=== PATIENT | male | born 1950 | race Caucasian/White ===

== ENCOUNTER → 2023-04-24 | Outpatient (CLI) | payer MEDICARE, SELFPAY ==
[2023-04-24 09:35] LABS: ALB/GLOB Ratio 0.9 RATIO (0.9-2.4); AST(SGOT) 16 U/L (15-37); Alanine Aminotransfer ALT/SGPT 22 U/L (16-61); Albumin, Serum 3.4 g/dL (3.2-5.0); Alkaline Phosphatase 69 U/L (45-117); Anion Gap 5 (5-15); BUN 22 mg/dL (7-18); BUN/Creat Ratio 28.8 RATIO (10-20); Calcium,Total 8.9 mg/dL (8.5-10.1); Chloride 108 mmol/L (98-107); Cholesterol 169 mg/dL (200); Creatinine, Serum 0.76 mg/dL (0.70-1.30); EST Glomerular Filtration Rate 106 mL/min (>60); Est Glom Filt Rate - Afr Amer 128 mL/min (>60); Globulin 3.8 g/dL (2.2-4.2); Glucose 119 mg/dL (74-106); High Density Lipoprotein 59 mg/dL; PSA,Total - Annual Screen 1.64 ng/mL (0.00-4.00); Potassium 4.5 mmol/L (3.5-5.1); Protein, Total 7.2 g/dL (6.4-8.2); Sodium Level 139 mmol/L (136-145); Triglycerides 60 mg/dL; Very Low Density Lipoprotein 12 mg/dL (5-40)
== END | disposition home or self-care (01) ==
LOC: LAB 07:54
PROVIDERS: PCP Family Medicine; Visit Provider Family Medicine
DX: I10 Essential (primary) hypertension (principal); Z12.5 Encounter for screening for malignant neoplasm of prostate
CPT/HCPCS: 36415; 80053; 80061; 84153; G0103

== ENCOUNTER → 2023-09-23 | Outpatient (CLI) | payer MEDICARE, SELFPAY ==
--- NOTE | 2023-09-23 12:27 | CT_ITS ---
CT RIGHT LOWER EXTREMITY WITH 3-D IMAGING CLINICAL INDICATION: PRE OP WAS. MICHELLE protocol. TECHNIQUE: Axial CT images of the RIGHT lower extremity was performed without IV contrast material. Coronal and sagittal reformats were provided. RADIATION DOSAGE (If Supplied By Facility): CTDIvol = ( 18.76 ) mGy, DLP = ( 1474.05 ) mGycm COMPARISON: No relevant prior comparison study available FINDINGS: Bones: Imaging of the right hip joint was obtained. Mild degree of joint space narrowing and small acetabular spur. There is evidence of a ossific bursitis overlying the greater trochanter. Imaging of the right knee joint was obtained. There is a moderate degree of joint space narrowing involving the medial compartment of the knee joint. Mild degree of joint space narrowing involving the femoral patellar joint. Small joint effusion. Imaging of the ankle joint was obtained. No significant abnormality is seen. Soft Tissues: The deep soft tissue structures are unremarkable. The superficial soft tissues are unremarkable without evidence of edema, hematoma, or foreign body. CT/Extremity Lower without Contra IMPRESSION: Osteoarthritis and joint space narrowing involving the medial compartment of the knee joint with a small joint effusion. Electronically Signed: Catracho Mishra MD at 13:22 EDT ,
--- NOTE | 2023-09-23 12:28 | EKG12_ITS ---
Test Reason : PRE-OP Blood Pressure : / mmHG Vent. Rate : 050 BPM Atrial Rate : 050 BPM P-R Int : 138 ms QRS Dur : 090 ms QT Int : 426 ms P-R-T Axes : 003 009 030 degrees QTc Int : 388 ms Sinus bradycardia Otherwise normal ECG Confirmed by KEITH RAMIREZ, LAILA ([id number]), food expeditor MICHAEL SIMMONS ([id number]) on 09/24/2023 10:40:19 AM Referred By: Mac Madrigal Confirmed By:LAILA PARKER MD
[2023-09-23 13:32] LABS: Absolute Neutrophil Count 4.5 X10^3/uL (2.0-7.7); Basophil# 0.05 X10^3/uL; Basophil% 0.8 % (0-1); Eosinophil# 0.21 X10^3/uL; Eosinophils% 3.5 % (0-5); Hematocrit 38.5 % (40-54); Hemoglobin 12.7 g/dL (13.0-16.5); Lymphocyte % 13.4 % (19-41); Mean Corpuscular Hgb 29.5 pg (27.0-32.0); Mean Corpuscular Volume 89.5 fL (80-94); Mean Platelet Vol. 9.1 fl (6.2-12.0); Monocyte% 6.7 % (0-10); NRBC Flagged by Analyzer 0 % (0-5); Neutrophil # 4.48 X10^3/uL (2.7-7.7); Neutrophil % 75.3 % (47-70); Platelet Count 266 K/mm3 (150-450); RBC Distribution Width CV 13.9 % (11.6-14.6); RBC Distribution Width SD 45.1 fl (35.1-43.9)
[2023-09-23 14:01] LABS: Albumin, Serum 3.7 g/dL (3.2-5.0); Anion Gap 4 (5-15); BUN 21 mg/dL (7-18); BUN/Creat Ratio 27.7 RATIO (10-20); Calcium,Total 9.2 mg/dL (8.5-10.1); Chloride 105 mmol/L (98-107); Creatinine, Serum 0.76 mg/dL (0.70-1.30); EST Glomerular Filtration Rate 107 mL/min (>60); Est Glom Filt Rate - Afr Amer 129 mL/min (>60); Glucose 111 mg/dL (74-106); Potassium 4.1 mmol/L (3.5-5.1); Sodium Level 137 mmol/L (136-145)
== END | disposition home or self-care (01) ==
LOC: CT 12:25
PROVIDERS: PCP Family Medicine; Referring Provider Specialist; Visit Provider Specialist
DX: Z01.818 Encounter for other preprocedural examination (principal); M17.11 Unilateral primary osteoarthritis, right knee; M21.161 Varus deformity, not elsewhere classified, right knee; M25.561 Pain in right knee
CPT/HCPCS: 36415; 73700; 80048; 82040; 85025; 93005

== ENCOUNTER → 2023-12-27 | Outpatient (CLI) | payer MEDICARE, SELFPAY ==
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
== END | disposition home or self-care (01) ==
LOC: CT 08:14
PROVIDERS: PCP Family Medicine; Visit Provider Specialist
DX: M17.12 Unilateral primary osteoarthritis, left knee (principal); M25.561 Pain in right knee
CPT/HCPCS: 73700

== ENCOUNTER → 2024-01-10 | Outpatient (CLI) | payer MEDICARE, SELFPAY ==
[2024-01-10 10:05] LABS: Absolute Lymphocyte Count 0.87 X10^3/uL (0.83-4.51); Absolute Neutrophil Count 4.4 X10^3/uL (2.0-7.7); Basophil# 0.08 X10^3/uL; Basophil% 1.3 % (0-1); Eosinophil# 0.29 X10^3/uL; Eosinophils% 4.7 % (0-5); Hematocrit 40.4 % (40-54); Hemoglobin 12.9 g/dL (13.0-16.5); Lymphocyte # 0.87 X10^3/ul (0.83-4.51); Mean Corp Hgb Conc 31.9 g/dL (32-36); Mean Corpuscular Volume 90.8 fL (80-94); Mean Platelet Vol. 9.5 fl (6.2-12.0); Monocyte% 8.1 % (0-10); NRBC Flagged by Analyzer 0 % (0-5); Neutrophil # 4.44 X10^3/uL (2.7-7.7); Neutrophil % 71.6 % (47-70); Platelet Count 282 K/mm3 (150-450); RBC Distribution Width CV 12.9 % (11.6-14.6); Red Blood Count 4.45 M/mm3 (4.6-6.2); White Blood Count 6.2 K/mm3 (4.4-11.0)
[2024-01-10 10:32] LABS: Albumin, Serum 3.7 g/dL (3.2-5.0); Anion Gap 8 (5-15); BUN 28 mg/dL (7-18); BUN/Creat Ratio 31.9 RATIO (10-20); Calcium,Total 9.4 mg/dL (8.5-10.1); Chloride 105 mmol/L (98-107); Creatinine, Serum 0.88 mg/dL (0.70-1.30); EST Glomerular Filtration Rate 90 mL/min (>60); Est Glom Filt Rate - Afr Amer 109 mL/min (>60); Glucose 118 mg/dL (74-106); Potassium 4.1 mmol/L (3.5-5.1); Sodium Level 139 mmol/L (136-145)
== END | disposition home or self-care (01) ==
LOC: LAB 09:15
PROVIDERS: PCP Family Medicine; Referring Provider Physician Assistant Surgical; Visit Provider Physician Assistant Surgical
DX: Z01.818 Encounter for other preprocedural examination (principal)
CPT/HCPCS: 36415; 80048; 82040; 85025

== ENCOUNTER → 2024-01-25 | Outpatient (CLI) | payer MEDICARE, SELFPAY ==
[2024-01-25 10:30] LABS: Hematocrit 31.6 % (40-54); Mean Corp Hgb Conc 31.6 g/dL (32-36); Mean Corpuscular Hgb 28.6 pg (27.0-32.0); Mean Corpuscular Volume 90.3 fL (80-94); Mean Platelet Vol. 9.4 fl (6.2-12.0); Platelet Count 290 K/mm3 (150-450); RBC Distribution Width CV 12.9 % (11.6-14.6); RBC Distribution Width SD 42.3 fl (35.1-43.9); White Blood Count 4.8 K/mm3 (4.4-11.0)
[2024-01-25 12:48] LABS: ALB/GLOB Ratio 0.7 RATIO (0.9-2.4); AST(SGOT) 31 U/L (15-37); Alanine Aminotransfer ALT/SGPT 44 U/L (16-61); Albumin, Serum 2.9 g/dL (3.2-5.0); Alkaline Phosphatase 75 U/L (45-117); Anion Gap 6 (5-15); BUN 19 mg/dL (7-18); BUN/Creat Ratio 22.4 RATIO (10-20); Calcium,Total 9.2 mg/dL (8.5-10.1); Chloride 104 mmol/L (98-107); Cholesterol 150 mg/dL (200); Creatinine, Serum 0.85 mg/dL (0.70-1.30); EST Glomerular Filtration Rate 93 mL/min (>60); Est Glom Filt Rate - Afr Amer 113 mL/min (>60); Globulin 3.9 g/dL (2.2-4.2); Glucose 112 mg/dL (74-106); High Density Lipoprotein 53 mg/dL; PSA,Total - Annual Screen 1.06 ng/mL (0.00-4.00); Potassium 4.5 mmol/L (3.5-5.1); Protein, Total 6.8 g/dL (6.4-8.2); Sodium Level 136 mmol/L (136-145); Triglycerides 85 mg/dL; Very Low Density Lipoprotein 17 mg/dL (5-40)
== END | disposition home or self-care (01) ==
LOC: MFPLAB 09:24
PROVIDERS: PCP Family Medicine; Visit Provider Family Medicine
DX: Z01.818 Encounter for other preprocedural examination (principal); Z12.5 Encounter for screening for malignant neoplasm of prostate; I10 Essential (primary) hypertension; K21.9 Gastro-esophageal reflux disease without esophagitis
CPT/HCPCS: 36415; 80053; 80061; 84153; 85027; G0103

== ENCOUNTER → 2024-11-29 | Outpatient (CLI) | payer MEDICARE, SELFPAY ==
--- NOTE | 2024-11-29 07:20 | US_ITS ---
PROCEDURE: TESTICULAR WITH ARTERIAL FLOW 11/29/2024 REASON FOR EXAM: R TESTICULAR SWELLING FOR 6 MONTHS. SWELLING V HERNIA. TECHNIQUE: TESTICULAR WITH ARTERIAL FLOW COMPARISON: None FINDINGS: RIGHT testicle: 4.3 cm x 3.3 cm x 2.1 cm Right epididymis: 0.9 cm x 1.3 cm x 0.5 cm LEFT testicle: 4.3 cm x 3.3 cm x 2.5 cm Left epididymis: 1 cm x 1.1 cm x 0.9 cm Other findings: Moderate bilateral hydroceles. Incidental finding is made of right inguinal hernia extending to the right scrotum. US/Testicular with Arterial Flow IMPRESSION: Moderate bilateral hydroceles. Right scrotal hernia. Reading Location: [id number]
--- OUTSIDE RECORDS SUMMARY | 2024-11-29 07:24 | XMS RPT_ITS | CCD ---
Author Organization [facility] Care Team Providers Care Schedule Supervisor Name Role Phone MANJINDER SPEAR Attending Unavailable MANJINDER SPEAR Primary Care Unavailable MANJINDER SPEAR Admitting Unavailable Williams RAMIREZ, Trent Nelson Primary Care Provider [phone] Unavailable Primary Care Provider Unavailemile Kramer MD, Trent Nelson Primary Care Provider [phone] Trent Kramer MD Primary Care Provider [phone] Williams RAMIREZ, rTent Nelson Primary Care Provider [phone] OLDER, MIRYAM Referring Unavailable TRENT KRAMER Primary Care Unavailable Trent Kramer MD Primary Care Provider [phone] LEE MORAN Attending Unavailable TRENT KRAMER Referring Unavailable TRENT KRAMER Primary Care Unavailable TRENT KRAMER Primary Care Unavailable SELF, SELF Referring Unavailable GERA YOUNGBLOOD Attending Unavailable TRENT KRAMER Primary Care Unavailable SELF, SELF Referring Unavailable ELIZABETH AVENDANO Attending Unavailable TRENT KRAMER Primary Care Unavailable TRENT KRAMER Referring Unavailable TRENT KRAMER Primary Care Unavailable GERA YOUNGBLOOD Attending Unavailable Dr. Beny Franco Primary Care Provider Dr. Ashish Lynch Attending Provider [phone] Mac Madrigal Referring Provider Beny Franco Primary Care Unavailable Ashish Lynch Attending Unavailable Mac Madrigal Referring Unavailable Beny Franco Primary Care Unavailable Beny Franco Attending Unavailable Alma Delia Barbosa Referring Unavailable Alma Delia Barbosa Attending Unavailable Beny Franco Primary Care Unavailable Beny Franco Primary Care Unavailable Mac Madrigal Attending Unavailable Justin Martinez Unavailable Beny Franco Primary Care Unavailable Mac Madrigal Referring Unavailable Mac Madrigal Attending Unavailable Beny Franco Attending Unavailable Beny Franco Primary Care Unavailable Medications Current Medications Medication Drug Class(es) Dates Sig (Normalized) Sig (Original) cephalexin 500 mg oral capsule (1 source) Cephalosporin Antibacterial Start: 09-18-2021 End: 09-25-2021 take 2 capsules by mouth every twelve hours cephALEXin (Keflex) 500 MG capsule Take 2 capsules by mouth every 12 hours for 7 days. 28 capsule 0 09/18/2021 09/25/2021 Active hydroCHLOROthiazide 12.5 mg / lisinopril 20 mg oral tablet (20 sources) Thiazide Diuretic, Angiotensin Converting Enzyme Inhibitor Start: 08-21-2020 End: 09-02-2022 take 1 tablet by mouth once daily in the morning lisinopril-hydr ochlorothiazide 20-12.5 MG per tablet Take 1 tablet by mouth daily every morning. 0 09/02/2021 Active Comment on above: Take 1 tablet by bertin th every morning. Multiple Vitamin (MULTIVITAMINS PO) (5 sources) Multiple Vitamin (MULTIVITAMINS PO) Take by mouth. 0 Active ofloxacin 3 mg/ml otic solution (2 sources) Quinolone Antimicrobial Start: 09-16-2021 End: 09-23-2021 ofloxacin (Floxin Otic) 0.3 % solution 5 drops by Otic route 2 times daily for 7 days. 5 mL 0 09/16/2021 09/23/2021 Active omeprazole 20 mg oral tablet (17 sources) Proton Pump Inhibitor Omeprazole Magnesium (PRILOSEC OTC PO) Take 20 mg by mouth. 0 Active take 1 capsule by mouth once eren ly omeprazole (PRILOSEC) 20 mg capsule Indications: Gastroesophageal reflux disease, esophagitis presence not specified Take 20 mg by mouth once daily. 0 Active Comment on above: Take 20 mg by mouth once daily. ondansetron 4 mg oral tablet (8 sources) Serotonin-3 Receptor Antagonist Start: take 1 tablet by mouth every eight hours as needed ondansetron 4 MG tablet Take 1 tablet by mouth every 8 hours as needed for Nausea. 30 tablet 0 03/05/2022 Active Start: 03-05-2022 End: 03-05-2022 ondansetron 4mg/2ml (ZOFRAN) injection 4 mg Start: 09-18-2021 End: 09-18-2021 take 4 mg intravenously every four hours as needed ondansetron 4mg/2ml (ZOFRAN) injection 4 mg oxyCODONE hydrochloride 5 mg oral tablet (11 sources) Opioid Agonist Start: 03-05-2022 End: 03-12-2022 take 1 tablet by mouth every four hours as needed oxyCODONE 5 MG tablet Indications: Mixed conductive and sensorineural hearing loss of left ear with restricted hearing of right ear Take 1 tablet by mouth every 4 hours as needed for up to 7 days. 8 tablet 0 03/05/2022 Active Start: 09-18-2021 End: 09-25-2021 take 1 tablet by mouth every six hours as needed for pain oxyCODONE 5 MG tablet Indications: Cholesteatoma, left Take 1 tablet by mouth every 6 hours as needed for Severe Pain for up to 7 days. 12 tablet 0 09/18/2021 Active Start: 09-18-2021 End: 09-18-2021 take 1 tablet by mouth every four hours as needed oxyCODONE (ROXICODONE) tablet 5 mg promethazine hydrochloride 12.5 mg oral tablet (11 sources) Phenothiazine Start: 09-18-2021 take 1 tablet by mouth every four hours as needed Promethazine HCl 12.5 MG tablet Take 1 tablet by mouth every 4 hours as needed for Nausea / Vomiting. 18 tablet 0 09/18/2021 Active Start: 09-18-2021 End: 09-18-2021 take 6.25 mg intravenously every hour as needed promethazine (PHENERGAN) injection 6.25 mg Completed/Discontinued Medications Medication Drug Class(es) Dates Sig (Normalized) Sig (Original) acetaminophen 325 mg oral tablet (3 sources) Start: 03-05-2022 End: 03-05-2022 take 1 tablet by mouth every four hours as needed acetaminophen (TYLENOL) tablet 650 mg Start: 03-05-2022 End: 03-05-2022 acetaminophen (TYLENOL) tabl et 975 mg Start: 09-18-2021 End: 09-18-2021 take 1 tablet by mouth every four hours as needed acetaminophen (TYLENOL) tablet 650 mg aspirin 81 mg delayed release oral tablet (18 sources) Platelet Aggregation Inhibitor, Nonsteroidal Anti-inflammatory Drug Start: 12-31-2009 aspirin(ECOTRIN L OW STRENGTH 81 MG TAB) Take one(1) tablet daily. 0 12/31/2009 Active aspirin 81 MG Ch ew Tab chewable tablet Chew 1 tablet daily. 0 Active Comment on above: Take one(1) tablet d aily. calcium chloride 0.0014 meq/ml / potassium chloride 0.004 meq/ml / sodium chloride 0.103 meq/ml / sodium lactate 0.028 meq/ml injectable solution (3 sources) Start: 03-05-2022 End: 03-05-2022 lactated ringers IV solution Start: 09-18-2021 End: 09-18-2021 lactated ringers IV solution ciprofloxacin 3 mg/ml / dexamethasone 1 mg/ml otic suspension (1 source) Corticosteroid, Quinolone Antimicrobial Start: 09-18-2021 End: 09-18-2021 ciprofloxacin-dexamethasone (CIPRODEX) otic suspension 4 drop CPAP (12 sources) Start: 05-12-2021 CPAP Indications: CAPO (obstructive sleep apnea) Change Auto PAP setting to 5-12 cmH2O. Needs supplies (masks, tubing, filters). Lifetime supplies. LINCARE 1 Each 05/12/2021 Active Start: 05-09-2020 CPAP Indicatio ns: CAPO (obstructive sleep apnea) Initiate Auto PAP @ 5-20 cm of water with humidification. Mask (per patient preference) optional chin strap (if indicated) , filters, tubing, humidifier and lifetime supplies. 1 Device 0 05/09/2020 Active Comment on above: Initiate Auto PAP @ 5-20 cm of water with humidification. Mask (per patient preference) optional chin strap (if indicated) , filters, tubing, humidifier and lifetime supplies. Change Auto PAP sett ing to 5-12 cmH2O. Needs supplies (masks, tubing, filters). Lifetime supplies. LINCARE 2 ml fentaNYL 0.05 mg/ml injection (1 source) Opioid Agonist Start: 03-05-20 End: 03-05-20 fentaNYL (SUBLIMAZE) injection 25 mcg HYDROmorphone (DILAUDID) injection 0.2 mg (1 source) Start: 09-19-19 End: 09-19-19 HYDROmorphone (DILAUDID) injection 0.2 mg ibuprofen 200 mg oral tablet (1 source) Nonsteroidal Anti-inflammatory Drug Start: 09-19-19 End: 09-19-19 take 1 tablet by mouth every six hours as needed ibuprofen (MOTRIN) tablet 400 mg lidocaine 1% buffered in sodium bicarbonate 1-8.4 % injection SOSY 1 mL (1 source) Start: 03-05-20 End: 03-05-20 lidocaine 1% buffered in sodium bicarbonate 1-8.4 % injection SOSY 1 mL MULTI-VITAMIN ORAL (6 sources) MULTI-VITAMIN OR AL Take by mouth once daily. 0 Active Comment on above: Take by mouth once d aily. remifentanil (ULTIVA) 1 mg in 0.9% sodium chloride 25 mL premade syringe (1 source) Start: 09-19-19 End: 09-19-19 remifentanil (ULTIVA) 1 mg in 0.9% sodium chloride 25 mL premade syringe 1000 ml sodium chloride 9 mg/ml injection (1 source) Start: 03-05-20 End: 03-05-20 sodium chloride 0.9% IV solution Problems Active Problems Problem Classification Problem Date Documented Date Episodic/Chronic Esophageal disorders (6 sources) Gastroesophageal reflux disease; Translations: [Gastro-esophageal reflux disease without esophagitis] Onset: 04-07-2005 04-07-2005 Chronic Essential hypertension (9 sources) Hypertensive disorder; Translations: [Essential (primary) hypertension] Onset: 12-03-2009 12-03-2009 Chronic Osteoarthritis (1 source) Unilateral primary osteoarthritis, left knee; Translations: [Unilateral primary osteoarthritis, left knee] Onset: 01-13-2024 Chronic Other ear and sense organ disorders (20 sources) Mixed conductive AND sensorineural hearing loss; Translations: [Mixed conductive and sensorineural hearing loss, unspecified] Onset: 09-16-2021 Chronic Other ear and sense organ disorders (1 source) Sensorineural hearing loss; Translations: [Unspecified sensorineural hearing loss] Chronic Other ear and sense organ disorders (2 sources) Bilateral hearing loss; Translations: [Sensorineural hearing loss, unilateral, right ear, with restricted hearing on the contralateral side] Chronic Other ear and sense organ disorders (1 source) Mixed conductive and sensorineural hearing loss, bilateral; Translations: [Mixed conductive and sensorineural hearing loss, bilateral] Chronic Other ear and sense organ disorders (2 sources) Sensorineural hearing loss, unilateral, right ear, with restricted hearing on the contralateral side; Translations: [Sensorineural hearing loss, unilateral, right ear, with restricted hearing on the contralateral side] Onset: 05-18-2023 Chronic Other ear and sense organ disorders (2 sources) Mixed conductive and sensorineural hearing loss, unilateral, 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; Translations: [Mixed conductive and sensorineural hearing loss, unilateral, 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] Onset: 09-16-2021 Chronic Other ear and sense organ disorders (2 sources) Mixed conductive and sensorineural hearing loss, bilateral; Translations: [Mixed conductive and sensorineural hearing loss, bilateral] Onset: 05-25-2022 Chronic Other ear and sense organ disorders (1 source) 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; Translations: [Cholesteatoma of attic, left ear] Episodic Other ear and sense organ disorders (2 sources) Tinnitus of left ear; Translations: [Tinnitus, left ear] Episodic Other ear and sense organ disorders (3 sources) Impacted cerumen in right ear; Translations: [Impacted cerumen, right ear] Onset: 05-18-2023 05-18-2023 Episodic Other ear and sense organ disorders (2 sources) Tinnitus, left ear; Translations: [Tinnitus, left ear] Onset: 05-18-2023 Episodic Otitis media and related conditions (14 sources) Chronic atticoantral suppurative otitis media, left ear; Translations: [Chronic atticoantral suppurative otitis media] Onset: 09-16-2021 09-16-2021 Chronic Otitis media and related conditions (9 sources) Partial necrosis of ear ossicles; Translations: [Partial loss of ear ossicles, left ear] Onset: 05-25-2022 Episodic Residual codes; unclassified (6 sources) Obstructive sleep apnea syndrome; Translations: [Obstructive sleep apnea (adult) (pediatric)] Onset: 04-19-2020 04-19-2020 Chronic Past or Other Problems Problem Classification Problem Date Documented Da te Episodic/Chronic Diabetes mellitus without complication (8 sources) Impaired fasting glycemia; Translations: [Impaired fasting glucose] Onset: 07-14-2012 07-14-2012 Episodic Other ear and sense organ disorders (16 sources) Cholesteatoma; Translations: [Unspecified cholesteatoma, left ear] Onset: 09-16-2021 09-16-2021 Episodic Other screening for suspected conditions (not mental disorders or infectious disease) (2 sources) Patient encounter status; Translations: [Encounter for screening for malignant neoplasm of prostate] Onset: 09-03-2022 Episodic Results Test Name Value Interpretation Reference Range Facility CBC-Complete Blood Cnt No Di ffon 01-25-2024 Erythrocyte distribution width (RBC) [Ratio] 12.9 % Normal 11.6-14.6 [facility] Comment on above: Order Comment: Order Date: 12/30/23 Order Info: [id number] - CBC Performed By: #### L 100.0500, L500.4050 #### [facility] [address] [place], [address] Hematocrit (Bld) [Volume fraction] 31.6 % Low 40-54 [facility] Comment on above: Order Comment: Order Date: 12/30/23 Order Info: [id number] - CBC Performed By: #### L 100.0500, L500.4050 #### [facility] [address] [place], [address] Hemoglobin (Bld) [Mass/Vol] 10.0 g/dL Low 13.0-16.5 [facility] Comment on above: Order Comment: Order Date: 12/30/23 Order Info: [id number] - CBC Performed By: #### L 100.0500, L500.4050 #### [facility] [address] [place], [address] MCH (RBC) [Entitic mass] 28.6 pg Normal 27.0-32.0 [facility] Comment on above: Order Comment: Order Date: 12/30/23 Order Info: [id number] - CBC Performed By: #### L 100.0500, [id number] #### [facility] [address] [place], [address] MCHC (RBC) [Mass/Vol] 31.6 g/dL Low 32-36 [facility] Comment on above: Order Comment: Order Date: 12/30/23 Order Info: [id number] - CBC Performed By: #### L 100.0500, [id number] #### [facility] [address] [place], [address] MCV (RBC) [Entitic vol] 90.3 fL Normal 80-94 [facility] Comment on above: Order Comment: Order Date: 12/30/23 Order Info: [id number] - CBC Performed By: #### L 100.0500, [id number] #### [facility] [address] [place], [address] Platelet mean volume (Bld) [Entitic vol] 9.4 fL Normal 6.2-12.0 [facility] Comment on above: Order Comment: Order Date: 12/30/23 Order Info: [id number] - CBC Performed By: #### L 100.0500, [id number] #### [facility] [address] [place], [address] Platelets (Bld) [#/Vol] 290 10*3/uL Normal 150-450 [facility] Comment on above: Order Comment: Order Date: 12/30/23 Order Info: [id number] - CBC Performed By: #### L 100.0500, [id number] #### [facility] [address] [place], [address] RBC (Bld) [#/Vol] 3.50 10*6/uL Low 4.6-6.2 [facility] Comment on above: Order Comment: Order Date: 12/30/23 Order Info: [id number] - CBC Performed By: #### L 100.0500, [id number] #### [facility] [address] [place], [address] RDW SD 42.3 fl Normal 35.1-43.9 [facility] Comment on above: Order Comment: Order Date: 12/30/23 Order Info: [id number] - CBC Performed By: #### L 100.0500, [id number] #### [facility] [address] [place], [address] WBC (Bld) [#/Vol] 4.8 10*3/uL Normal 4.4-11.0 [facility] Comment on above: Order Comment: Order Date: 12/30/23 Order Info: [id number] - CBC Performed By: #### L 100.0500, [id number] #### [facility] [address] [place], [address] Comprehensive Metabolic Prof ilon 01-25-2024 Albumin [Mass/Vol] 2.9 g/dL Low 3.2-5.0 [facility] Comment on above: Order Comment: Order Date: 09/10/23 Order Info: [id number] - CMP Order Info: [id number] - LIPID Performed By: #### L 100.0500, [id number] #### [facility] [address] [place], [address] Albumin/Globulin [Mass ratio] 0.7 {ratio} Low 0.9-2.4 [facility] Comment on above: Order Comment: Order Date: 09/10/23 Order Info: [id number] - CMP Order Info: [id number] - LIPID Performed By: #### L 100.0500, L500.4050 #### [facility] [address] [place], [address] ALK P 75 U/L Normal 45-117 [facility] Comment on above: Order Comment: Order Date: 09/10/23 Order Info: [id number] - CMP Order Info: [id number] - LIPID Performed By: #### L 100.0500, [id number] #### [facility] [address] [place], [address] ALT [Catalytic activity/Vol] 44 U/L Normal 16-61 [facility] Comment on above: Order Comment: Order Date: 09/10/23 Order Info: [id number] - CMP Order Info: [id number] - LIPID Performed By: #### L 100.0500, [id number] #### [facility] [address] [place], [address] AST [Catalytic activity/Vol] 31 U/L Normal 15-37 [facility] Comment on above: Order Comment: Order Date: 09/10/23 Order Info: [id number]- - CMP Order Info: [id number] - LIPID Performed By: #### L 100.0500, L500.4050 #### [facility] [address] [place], [address] Bilirubin [Mass/Vol] 0.50 mg/dL Normal 0.20-1.00 [facility] Comment on above: Order Comment: Order Date: 09/10/23 Order Info: [id number]- - CMP Order Info: [id number] - LIPID Result Comment: For patients on eltrombopag therapy, use of Dimension [place] TBIL is not recommended. Performed By: #### L 100.0500, L500.4050 #### [facility] [address] [place], [address] BUN/CRE 22.4 RATIO High 10-20 [facility] Comment on above: Order Comment: Order Date: 09/10/23 Order Info: [id number] - CMP Order Info: [id number] - LIPID Performed By: #### L 100.0500, [id number] #### [facility] [address] [place], [address] CA,Total 9.2 mg/dL Normal 8.5-10.1 [facility] Comment on above: Order Comment: Order Date: 09/10/23 Order Info: [id number]- - CMP Order Info: [id number] - LIPID Performed By: #### L 100.0500, [id number] #### [facility] [address] [place], [address] Chloride [Moles/Vol] 104 mmol/L Normal 98-107 [facility] Comment on above: Order Comment: Order Date: 09/10/23 Order Info: [id number] - CMP Order Info: - LIPID Performed By: #### L 100.0500, [id number] #### [facility] [address] [place], [address] CO2 [Moles/Vol] 26.0 mmol/L Normal 21.0-32.0 [facility] Comment on above: Order Comment: Order Date: 09/10/23 Order Info: [id number] - CMP Order Info: [id number] - LIPID Performed By: #### L 100.0500, [id number] #### [facility] [address] [place], [address] Creatinine [Mass/Vol] 0.85 mg/dL Normal 0.70-1.30 [facility] Comment on above: Order Comment: Order Date: 09/10/23 Order Info: 07 - CMP Order Info: [id number] - LIPID Result Comment: The validity of the calculated GFR GFRAA in patients over 70 years has not been determined. Clinical correlation is essential. Performed By: #### L 100.0500, L500.4050 #### [facility] [address] [place], [address] EST GFR - AA 113 mL/min Normal >60 [facility] Comment on above: Order Comment: Order Date: 09/10/23 Order Info: 07 - CMP Order Info: [id number] - LIPID Result Comment: Afri can [place] GFR Calc Performed By: #### L 100.0500, [id number] #### [facility] [address] [place], [address] GAP 6 Normal 5-15 [facility] Comment on above: Order Comment: Order Date: 09/10/23 Order Info: [id number] - CMP Order Info: [id number] - LIPID Performed By: #### L 100.0500, [id number] #### [facility] [address] [place], [address] GFR/1.73 sq M.predicted among non-blacks MDRD (S/P/Bld) [Vol rate/Area] 93 mL/min/{1.73_m2} Normal >60 [facility] Comment on above: Order Comment: Order Date: 09/10/23 Order Info: [id number] - CMP Order Info: [id number] - LIPID Result Comment: Non- GFR Calc Performed By: #### L 100.0500, L500.4050 #### [facility] [address] [place], [address] Globulin (S) [Mass/Vol] 3.9 g/dL Normal 2.2-4.2 [facility] Comment on above: Order Comment: Order Date: 09/10/23 Order Info: [id number] - CMP Order Info: [id number] - LIPID Performed By: #### L 100.0500, [id number] #### [facility] [address] [place], [address] Glucose [Mass/Vol] 112 mg/dL High 74-106 [facility] Comment on above: Order Comment: Order Date: 09/10/23 Order Info: [id number] - CMP Order Info: [id number] - LIPID Result Comment: Fast ing Glucose result from 100 to 125 mg/dL suggests IMPAIRED HOMEOSTASIS per A.D.A. criteria. Performed By: #### L 100.0500, [id number] #### [facility] [address] [place], [address] Potassium [Moles/Vol] 4.5 mmol/L Normal 3.5-5.1 [facility] Comment on above: Order Comment: Order Date: 09/10/23 Order Info: [id number] - CMP Order Info: [id number] - LIPID Performed By: #### L 100.0500, [id number] #### [facility] [address] [place], [address] Sodium [Moles/Vol] 136 mmol/L Normal 136-145 [facility] Comment on above: Order Comment: Order Date: 09/10/23 Order Info: [id number] - CMP Order Info: [id number] - LIPID Performed By: #### L 100.0500, [id number] #### [facility] [address] [place], [address] T PROT 6.8 g/dL Normal 6.4-8.2 [facility] Comment on above: Order Comment: Order Date: 09/10/23 Order Info: [id number] - CMP Order Info: [id number] - LIPID Performed By: #### L 100.0500, [id number] #### [facility] [address] [place], [address] Urea nitrogen [Mass/Vol] 19 mg/dL High 7-18 [facility] Comment on above: Order Comment: Order Date: 09/10/23 Order Info: [id number] - CMP Order Info: [id number] - LIPID Performed By: #### L 100.0500, [id number] #### [facility] [address] [place], [address] Lipid Profileon 01-25-2024 Cholesterol [Mass/Vol] 150 mg/dL Normal 200 [facility] Comment on above: Order Comment: Order Date: 12/30/23 Order Info: [id number] - CBC Result Comment: <200 mg/dL Desirable 200-240 mg/dL Borderline >240 mg/dL High Risk Performed By: #### L 100.0500, L500.4050 #### [facility] [address] [place], [address] Cholesterol in HDL [Mass/Vol] 53 mg/dL Normal [facility] Comment on above: Order Comment: Order Date: 12/30/23 Order Info: [id number] - CBC Result Comment: The drugs N-Acetylcysteine and Metamizole may falsely depress this assay. Reference Range HDL <40 mg/dL Low HDL Cholesterol HDL >or= 60 mg/dL High HDL Cholesterol Performed By: #### L 100.0500, [id number] #### [facility] [address] [place], [address] Cholesterol in LDL [Mass/Vol] 80 mg/dL Normal 0-130 [facility] Comment on above: Order Comment: Order Date: 12/30/23 Order Info: [id number] - CBC Performed By: #### L 100.0500, [id number] #### [facility] [address] [place], [address] Cholesterol in VLDL [Mass/Vol] 17 mg/dL Normal 5-40 [facility] Comment on above: Order Comment: Order Date: 12/30/23 Order Info: [id number] - CBC Performed By: #### L 100.0500, [id number] #### [facility] [address] [place], [address] Triglyceride [Mass/Vol] 85 mg/dL Normal [facility] Comment on above: Order Comment: Order Date: 12/30/23 Order Info: [id number] - CBC Result Comment: The drugs N-Acetylcysteine and Metamizole may falsely depress this assay. Serum Triglycerides Reference Interval Normal <150 mg/dL Borderline high 150 - 199 mg/dL High 200 - 499 mg/dL Very High > or = 500 mg/dL Performed By: #### L 100.0500, L500.4050 #### [facility] [address] [place], [address] PSA,Total - Annual Screenon 01-25-2024 PSA,TOT SCREEN 1.06 ng/mL Normal 0.00-4.00 [facility] Comment on above: Order Comment: Order Date: 09/10/23 Order Info: [id number] - CMP Order Info: [id number] - LIPID Result Comment: This test was performed using the TPSA assay method for the [employer] chemistry system. Values obtained with different assay methods cannot be used interchangably. When changing PSA assays in the course of monitoring a patient, additional sequential testing should be carried out to confirm baseline values. Performed By: #### L 501.9910 #### [facility] [address] [place], [address] Albumin, Serumon 01-10-2024 Albumin [Mass/Vol] 3.7 g/dL Normal 3.2-5.0 [facility] Comment on above: Performed By: #### L 100.0500, L500.4050 #### [facility] [address] [place], [address] Basic Metabolic Profile (BMP )on 01-10-2024 BUN/CRE 31.9 RATIO High 10-20 [facility] Comment on above: Performed By: #### L 100.0500, L500.4050 #### [facility] [address] [place], [address] CA,Total 9.4 mg/dL Normal 8.5-10.1 [facility] Comment on above: Performed By: #### L 100.0500, L500.4050 #### [facility] [address] [place], [address] Chloride [Moles/Vol] 105 mmol/L Normal 98-107 [facility] Comment on above: Performed By: #### L 100.0500, L500.4050 #### [facility] [address] [place], [address] CO2 [Moles/Vol] 26.0 mmol/L Normal 21.0-32.0 [facility] Comment on above: Performed By: #### L 100.0500, L500.4050 #### [facility] [address] [place], [address] Creatinine [Mass/Vol] 0.88 mg/dL Normal 0.70-1.30 [facility] Comment on above: Result Comment: The validity of the calculated GFR GFRAA in patients over 70 years has not been determined. Clinical correlation is essential. Performed By: #### L 100.0500, L500.4050 #### [facility] [address] [place], [address] EST GFR - AA 109 mL/min Normal >60 [facility] Comment on above: Result Comment: Afri can [place] GFR Calc Performed By: #### L 100.0500, L500.4050 #### [facility] [address] [place], [address] GAP 8 Normal 5-15 [facility] Comment on above: Performed By: #### L 100.0500, L500.4050 #### [facility] [address] [place], [address] GFR/1.73 sq M.predicted among non-blacks MDRD (S/P/Bld) [Vol rate/Area] 90 mL/min/{1.73_m2} Normal >60 [facility] Comment on above: Result Comment: Non- GFR Calc Performed By: #### L 100.0500, L500.4050 #### [facility] [address] [place], [address] Glucose [Mass/Vol] 118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 Order Info: [id number] - CMP Order Info: - LIPID Order Info: [id number] - PSA Result Comment: Non- GFR Calc Performed By: #### L 500.4050, L501.9910, L500.4100 #### [facility] [address] [place], [address] Globulin (S) [Mass/Vol] 3.8 g/dL Normal 2.2-4.2 [facility] Comment on above: Order Comment: Order Date: 04/22/23 Order Info: [id number] - CMP Order Info: [id number] - LIPID Order Info: [id number] - PSA Performed By: #### L 500.4050, L501.9910, L500.4100 #### [facility] [address] [place], [address] Glucose [Mass/Vol] 119 mg/dL High 74-106 [facility] Comment on above: Order Comment: Order Date: 04/22/23 Order Info: [id number] - CMP Order Info: [id number] - LIPID Order Info: 285- - PSA Result Comment: Fast ing Glucose result from 100 to 125 mg/dL suggests IMPAIRED HOMEOSTASIS per A.D.A. criteria. Performed By: #### L 500.4050, L501.9910, L500.4100 #### [facility] [address] [place], [address] Potassium [Moles/Vol] 4.5 mmol/L Normal 3.5-5.1 [facility] Comment on above: Order Comment: Order Date: 04/22/23 Order Info: [id number] - CMP Order Info: [id number] - LIPID Order Info: [id number] - PSA Performed By: #### L 500.4050, L501.9910, L500.4100 #### [facility] [address] [place], [address] Sodium [Moles/Vol] 139 mmol/L Normal 136-145 [facility] Comment on above: Order Comment: Order Date: 04/22/23 Order Info: 785- - CMP Order Info: - LIPID Order Info: 285- - PSA Performed By: #### L 500.4050, L501.9910, L500.4100 #### [facility] [address] [place], [address] T PROT 7.2 g/dL Normal 6.4-8.2 [facility] Comment on above: Order Comment: Order Date: 04/22/23 Order Info: [id number] - CMP Order Info: [id number] - LIPID Order Info: [id number] - PSA Performed By: #### L 500.4050, L501.9910, L500.4100 #### [facility] [address] [place], [address] Urea nitrogen [Mass/Vol] 22 mg/dL High 7-18 [facility] Comment on above: Order Comment: Order Date: 04/22/23 Order Info: [id number] - CMP Order Info: [id number] - LIPID Order Info: [id number] - PSA Performed By: #### L 500.4050, L501.9910, L500.4100 #### [facility] [address] [place], [address] Laboratory - Chemistry and C hemistry - challengeOrdered By: Alex Franco on 04-24-2023 ALP [Catalytic activity/Vol] 69 U/L 45-117 [facility] ALT [Catalytic activity/Vol] 22 U/L 16-61 [facility] CO2 [Moles/Vol] 26.0 mmol/L 21.0-32.0 [facility] Globulin (S) [Mass/Vol] 3.8 g/dL 2.2-4.2 [facility] Urea nitrogen/Creatinine [Mass ratio] 28.8 mg/mg 10-20 [facility] Lipid Profileon 04-24-2023 Cholesterol [Mass/Vol] 169 mg/dL Normal 200 [facility] Comment on above: Order Comment: Order Date: 04/22/23 Order Info: [id number] - CMP Order Info: [id number] - LIPID Order Info: [id number] - PSA Result Comment: <200 mg/dL Desirable 200-240 mg/dL Borderline >240 mg/dL High Risk Performed By: #### L 500.4050, L501.9910, L500.4100 #### [facility] [address] [place], [address] Cholesterol in HDL [Mass/Vol] 59 mg/dL Normal [facility] Comment on above: Order Comment: Order Date: 04/22/23 Order Info: [id number] - CMP Order Info: [id number] - LIPID Order Info: [id number] - PSA Result Comment: The drugs N-Acetylcysteine and Metamizole may falsely depress this assay. Reference Range HDL <40 mg/dL Low HDL Cholesterol HDL >or= 60 mg/dL High HDL Cholesterol Performed By: #### L 500.4050, L501.9910, L500.4100 #### [facility] [address] [place], [address] Cholesterol in LDL [Mass/Vol] 98 mg/dL Normal 0-130 [facility] Comment on above: Order Comment: Order Date: 04/22/23 Order Info: [id number] - CMP Order Info: [id number] - LIPID Order Info: [id number] - PSA Performed By: #### L 500.4050, L501.9910, L500.4100 #### [facility] [address] [place], [address] Cholesterol in VLDL [Mass/Vol] 12 mg/dL Normal 5-40 [facility] Comment on above: Order Comment: Order Date: 04/22/23 Order Info: [id number]- - CMP Order Info: [id number] - LIPID Order Info: [id number] - PSA Performed By: #### L 500.4050, L501.9910, L500.4100 #### [facility] [address] [facility], [address] Triglyceride [Mass/Vol] 60 mg/dL Normal [facility] Comment on above: Order Comment: Order Date: 04/22/23 Order Info: 0786 - CMP Order Info: [id number] - LIPID Order Info: [id number] - PSA Result Comment: The drugs N-Acetylcysteine and Metamizole may falsely depress this assay. Serum Triglycerides Reference Interval Normal <150 mg/dL Borderline high 150 - 199 mg/dL High 200 - 499 mg/dL Very High > or = 500 mg/dL Performed By: #### L 500.4050, L501.9910, L500.4100 #### [facility] [address] [place], [address] No Panel InformationOrdered By: Alex Franco on 04-24-2023 Estimated GFR (MDRD) Amer 128 mL/min >60 [facility] Comment on above: GFR Calc Estimated GFR (MDRD) Non-Af Amer 106 mL/min >60 [facility] Comment on above: Non- GFR Calc Prostate Specific Antigen Screen 1.64 ng/mL 0.00-4.00 [facility] Comment on above: This test was perfor med using the TPSA assay method for the[facility] system. Values obtained with differentassay methods cannot be used interchangably.When changing PSA assays in the course of monitoring apatient, additional sequential testing should be carriedout to confirm baseline values. PSA,Total - Annual Screenon 04-24-2023 PSA,TOT SCREEN 1.64 ng/mL Normal 0.00-4.00 [facility] Comment on above: Order Comment: Order Date: 04/22/23 Order Info: [id number] - CMP Order Info: [id number] - LIPID Order Info: [id number] - PSA Result Comment: This test was performed using the TPSA assay method for the [employer] chemistry system. Values obtained with different assay methods cannot be used interchangably. When changing PSA assays in the course of monitoring a patient, additional sequential testing should be carried out to confirm baseline values. Performed By: #### L 500.4050, L501.9910, L500.4100 #### [facility] [address] [place], [address] Serum or plasma albumin lester urement (mass/volume)Ordered By: Alex Franco on 04-24-2023 Albumin [Mass/Vol] 3.4 g/dL 3.2-5.0 [facility] Serum or plasma albumin/glob ulin mass ratioOrdered By: Alex Franco on 04-24-2023 Albumin/Globulin [Mass ratio] 0.9 {ratio} 0.9-2.4 [facility] Serum or plasma calcium lester urement (mass/volume)Ordered By: Alex Franco on 04-24-2023 Calcium [Mass/Vol] 8.9 mg/dL 8.5-10.1 [facility] Serum or plasma cholesterol in HDL measurement (mass/volume)Ordered By: Alex Franco on 04-24-2023 Cholesterol in HDL [Mass/Vol] 59 mg/dL >40 [facility] Comment on above: The drugs N-Acetylcy steine and Metamizole may falsely depress this assay. Reference Range HDL <40 mg/dL Low HDL Cholesterol HDL >or= 60 mg/dL High HDL Cholesterol Serum or plasma cholesterol in VLDL measurement (mass/volume)Ordered By: Alex Franco on 04-24-2023 Cholesterol in VLDL [Mass/Vol] 12 mg/dL 5-40 [facility] Serum or plasma creatinine m easurement (mass/volume)Ordered By: Alex Franco on 04-24-2023 Creatinine [Mass/Vol] 0.76 mg/dL 0.70-1.30 [facility] Comment on above: The validity of the calculated GFR & GFRAA in patients over 70 years has not been determined. Clinical correlation is essential. Serum or plasma low density lipoprotein (LDL) cholesterol measurement (mass/volume)Ordered By: Alex Franco on 04-24-2023 Cholesterol in LDL [Mass/Vol] 98 mg/dL 0-130 [facility] Serum or plasma urea nitroge n measurement (mass/volume)Ordered By: Alex Franco on 04-24-2023 Urea nitrogen [Mass/Vol] 22 mg/dL 7-18 [facility] Thin prep Papanicolaou smear with manual screeningOrdered By: Alex Franco on 04-24-2023 Thin prep Papanicolaou smear with manual screening 16 U/L 15-37 [facility] Thin prep Papanicolaou smear with manual screening 5 5-15 [facility] CNPNon 09-04-2022 CNPN Telephone (INTMWS) YENI CAGE ([id number]) 1950 Date Time Provider Department 09/04/22 MIRYAM GLOVER INTJAKY During your visit today, we recorded the following information about you: Momo Sorensen Ma 09/04/2022 2:30 PM Signed ----- Message from Miryam Glover APRN.DOT COMPLIANCE COORDINATOR sent at 09/04/2022 1:13 PM EDT ----- Labs were okay. Appointment 09/10 canceled, please reschedule Miryam Glover APRN.ADELAIDA Sorensen Ma 09/04/2022 2:31 PM Signed Left message to call office. 09/04/2022 2:30 PM Marry Luna LPN 09/07/2022 2:46 PM Signed Left message to call AND speak to nurse. Marry Luna LPN 09/07/2022 7:58 PM Signed Left message to call AND speak to nurse. Marry Sorensen Ma 09/08/2022 3:27 PM Signed Unable to reach letter mailed to patient. Allergies As of Date: 09/04/2022 (No Known Allergies) Date Reviewed: 05/12/2021 Reviewed by: Manjinder Woody Jr., MD - Fully Assessed Reason for Visit: Results [95] Prescriptions as of 09/08/2022 - lisinopril-hydroCHLOROthiaz ellis (ZESTORETIC) 20-12.5 mg per tablet Take 1 tablet by mouth every morning. - CPAP Change Auto PAP setting to 5-12 cmH2O. Needs supplies (masks, tubing, filters). Lifetime supplies. [place] - CPAP Initiate Auto PAP @ 5-20 cm of water with humidification. Mask (per patient preference) optional chin strap (if indicated) , filters, tubing, humidifier and lifetime supplies. - omeprazole (PRILOSEC) 20 mg capsule Take 20 mg by mouth once daily. - MULTI-VITAMIN ORAL Take by mouth once daily. - aspirin(ECOTRIN LOW STRENGTH 81 MG TAB) Take one(1) tablet daily. Problem List As Of Date 09/04/2022 Noted Resolved ESOPHAGEAL REFLUX [K21.9] 04/07/2005 Hypertension [I10] 12/03/2009 Erectile dysfunction [N52.9] 12/03/2009 05/18/2014 Loss of weight [R63.4] 02/03/2010 12/15/2010 Esophagitis, unspecified [K20.90] 02/03/2010 01/13/2012 Special screening for malignant neoplasms, colo*02/03/2010 01/13/2012 Diverticulosis of colon (without mention of hem*02/03/2010 01/13/2012 Internal hemorrhoids without mention of complic*02/03/2010 01/13/2012 Impaired fasting glucose [R73.01] 07/14/2012 CAPO (obstructive sleep apnea) [G47.33] 04/19/2020 Letter Text Encounter Status:Closed by MOMO SORENSEN MA on 09/08/22 Normal [facility] CBC panel Auto (Bld)on 09-03 Erythrocyte distribution width (RBC) [Ratio] 13.3 % Normal 11.5-15.0 [facility] Comment on above: Order Comment: Speci men Type: BLOOD SPECIMEN Ordering Facility: [facility] Address: [address] [place] [address] Performed By: #### 5 8410-2 #### [facility] [place] [id number] [facility] [place] [address] [place] Hematocrit (Bld) [Volume fraction] 38.9 % Low 39.0-51.0 [facility] Comment on above: Order Comment: Speci men Type: BLOOD SPECIMEN Ordering Facility: [facility] Address: [address] [place] [address] Performed By: #### 5 8410-2 #### [facility] [place] [id number] [address] [place] [address] [place] Hemoglobin (Bld) [Mass/Vol] 12.6 g/dL Low 13.0-17.0 [facility] Comment on above: Order Comment: Speci men Type: BLOOD SPECIMEN Ordering Facility: [facility] Address: [address] [place] [address] Performed By: #### 5 8410-2 #### [facility] [place] [id number] [address] [place] [address] [place] MCH (RBC) [Entitic mass] 29.0 pg Normal 26.0-34.0 [facility] Comment on above: Order Comment: Speci men Type: BLOOD SPECIMEN Ordering Facility: [facility] Address: [address] [place], [place] [address] Performed By: #### 5 8410-2 #### [facility] [place] [id number] [address] [place] [address] [place] MCHC (RBC) [Mass/Vol] 32.4 g/dL Normal 30.5-36.0 [facility] Comment on above: Order Comment: Speci men Type: BLOOD SPECIMEN Ordering Facility: [facility] Address: [address] [place] [address] Performed By: #### 5 8410-2 #### [facility] CLIA [id number] [address] [place] [address] [place] MCV (RBC) [Entitic vol] 89.6 fL Normal 80.0-100.0 [facility] Comment on above: Order Comment: Speci men Type: BLOOD SPECIMEN Ordering Facility: [facility] Address: [address] Performed By: #### 5 8410-2 #### [facility] CLIA [id number] [facility] [place] [address] [place] Nucleated RBC (Bld) [#/Vol] 10*3/uL Normal <0.01 [facility] Comment on above: Order Comment: Speci men Type: BLOOD SPECIMEN Ordering Facility: [facility] Address: [address] [place] [address] Performed By: #### 5 8410-2 #### [facility] CLIA [id number] [address] [place] [address] [place] Platelet mean volume (Bld) [Entitic vol] 10.9 fL Normal 9.0-12.7 [facility] Comment on above: Order Comment: Speci men Type: BLOOD SPECIMEN Ordering Facility: [facility] Address: [address] [place] [address] Performed By: #### 5 8410-2 #### [facility] CLIA [id number] [address] [place] [address] [place] Platelets (Bld) [#/Vol] 277 10*3/uL Normal 150-400 [facility] Comment on above: Order Comment: Speci men Type: BLOOD SPECIMEN Ordering Facility: [facility] Address: [address] Performed By: #### 5 8410-2 #### [facility] CLIA [id number] [address] [place] [address] [place] RBC (Bld) [#/Vol] 4.34 10*6/uL Normal 4.20-6.[address] [facility] Comment on above: Order Comment: Speci men Type: BLOOD SPECIMEN Ordering Facility: [facility] Address: [address] Performed By: #### 5 8410-2 #### [facility] [place] [id number] [address] [place] [address] [place] WBC (Bld) [#/Vol] 6.19 10*3/uL Normal 3.70-11.[address] [facility] Comment on above: Order Comment: Speci men Type: BLOOD SPECIMEN Ordering Facility: [facility] Address: [address] Performed By: #### 5 8410-2 #### [facility] [place] [id number] [address] [place] [address] [place] Comprehensive metabolic 2000 panelon 09-03-2022 Albumin [Mass/Vol] 4.1 g/dL Normal 3.9-4.[address] [facility] Comment on above: Order Comment: Speci men Type: BLOOD SPECIMEN Ordering Facility: [facility] Address: [address] Performed By: #### P SAS1 #### [facility] [place] [id number] [address] [place] [address] [place] ALP [Catalytic activity/Vol] 80 U/L Normal 38-113 [facility] Comment on above: Order Comment: Speci men Type: BLOOD SPECIMEN Ordering Facility: [facility] Address: [address] [place], [place] [address] Performed By: #### P SAS1 #### [facility] CLIA [id number] [address] [place] [address] [place] ALT [Catalytic activity/Vol] 18 U/L Normal 10-54 [facility] Comment on above: Order Comment: Speci men Type: BLOOD SPECIMEN Ordering Facility: [facility] Address: [address] [place] [address] Performed By: #### P SAS1 #### [facility] CLIA [id number] [address] [place] [address] [place] Anion gap [Moles/Vol] 9 mmol/L Normal 9-18 [facility] Comment on above: Order Comment: Speci men Type: BLOOD SPECIMEN Ordering Facility: [facility] Address: [address] [place] [address] Performed By: #### P SAS1 #### [facility] CLIA [id number] [address] [place] [address] [place] AST [Catalytic activity/Vol] 23 U/L Normal 14-40 [facility] Comment on above: Order Comment: Speci men Type: BLOOD SPECIMEN Ordering Facility: [facility] Address: [address] [place], [place] [address] Performed By: #### P SAS1 #### [facility] CLIA [id number] [address] [place] [address] [place] Bilirubin [Mass/Vol] 0.5 mg/dL Normal 0.2-1.[address] [facility] Comment on above: Order Comment: Speci men Type: BLOOD SPECIMEN Ordering Facility: [facility] Address: [address] [place], [place] [address] Performed By: #### P SAS1 #### [facility] CLIA [id number] [address] [place] [address] [place] Calcium [Mass/Vol] 9.7 mg/dL Normal 8.5-10.[address] [facility] Comment on above: Order Comment: Speci men Type: BLOOD SPECIMEN Ordering Facility: [facility] Address: [address] [place] [address] Performed By: #### P SAS1 #### [facility] CLIA [id number] [address] [place] [address] [place] Chloride [Moles/Vol] 106 mmol/L High 97-[address] [facility] Comment on above: Order Comment: Speci men Type: BLOOD SPECIMEN Ordering Facility: [facility] Address: [address] [place] [address] Performed By: #### P SAS1 #### [facility] CLIA [id number] [address] [place] [address] [place] CO2 [Moles/Vol] 25 mmol/L Normal 22-30 [facility] Comment on above: Order Comment: Speci men Type: BLOOD SPECIMEN Ordering Facility: [facility] Address: [address] [place] [address] Performed By: #### P SAS1 #### [facility] [facility] CLIA [id number] [address] [place] [address] [place] Creatinine [Mass/Vol] 0.76 mg/dL Normal 0.73-1.22 [facility] Comment on above: Order Comment: Speci men Type: BLOOD SPECIMEN Ordering Facility: [facility] Address: [address] [place] [address] Performed By: #### P SAS1 #### [facility] CLIA [id number] [address] [place] [address] [place] ESTIMATED GLOMERULAR FILTRATION RATE 94 mL/min/1.73m??? Normal >=60 [facility] Comment on above: Order Comment: Speci men Type: BLOOD SPECIMEN Ordering Facility: [facility] Address: [address] [place] [address] Result Comment: Malathi mated Glomerular Filtration Rate (eGFR) is calculated using the 2020 CKD-EPI creatinine equation. This equation utilizes serum creatinine, sex, and age as parameters. The creatinine assay has traceable calibration to isotope dilution-mass spectrometry. Refer to KDIGO guidelines for clinical interpretation. In patients with unstable renal function, e.g. those with acute kidney injury, the eGFR may not accurately reflect actual GFR. Performed By: #### P SAS1 #### [facility] CLIA [id number] [address] [place] [address] [place] Glucose [Mass/Vol] 127 mg/dL High 74-[address] [facility] Comment on above: Order Comment: Speci gaston Type: BLOOD SPECIMEN Ordering Facility: [facility] Address: [address] Result Comment: The [place] Diabetes Association (ADA) provides guidance for cutoff values for fasting glucose and random glucose. The ADA defines fasting as no caloric intake for at least 8 hours. Fasting plasma glucose results between 100 to 125 mg/dL indicate increased risk for diabetes (prediabetes). Fasting plasma glucose results greater than or equal to 126 mg/dL meet the criteria for diagnosis of diabetes. In the absence of unequivocal hyperglycemia, results should be confirmed by repeat testing. In a patient with classic symptoms of hyperglycemia or hyperglycemic crisis, random plasma glucose results greater than or equal to 200 mg/dL meet the criteria for diagnosis of diabetes. Reference: Standards of Medical Care in Diabetes 2016, [place] Diabetes Association. Diabetes Care. 2016.39(Suppl 1). Performed By: #### P SAS1 #### [facility] CLIA [id number] [address] [place] [address] [place] Potassium [Moles/Vol] 4.4 mmol/L Normal 3.7-5.1 [facility] Comment on above: Order Comment: Toni feldman Type: BLOOD SPECIMEN Ordering Facility: [facility] Address: [address] [place] [address] Performed By: #### P SAS1 #### [facility] CLIA [id number] [address] [address] [place] Protein [Mass/Vol] 7.4 g/dL Normal 6.3-8.[address] [facility] Comment on above: Order Comment: Speci men Type: BLOOD SPECIMEN Ordering Facility: [facility] Address: [address] [address] Performed By: #### P SAS1 #### [facility] CLIA [id number] [address] [place] [address] [place] Sodium [Moles/Vol] 140 mmol/L Normal 136-[address] [facility] Comment on above: Order Comment: Speci men Type: BLOOD SPECIMEN Ordering Facility: [facility] Address: [address] [address] Performed By: #### P SAS1 #### [facility] CLIA [id number] [address] [place] [address] [place] Urea nitrogen [Mass/Vol] 16 mg/dL Normal 9-24 [facility] Comment on above: Order Comment: Speci men Type: BLOOD SPECIMEN Ordering Facility: [facility] Address: [address] [address] Performed By: #### P SAS1 #### [facility] CLIA [id number] [address] [place] [address] [place] HbA1c (Bld)on 09-03-2022 Average glucose Estimated from glycated hemoglobin (Bld) [Mass/Vol] 137 mg/dL Normal [facility] Comment on above: Order Comment: Speci men Type: BLOOD SPECIMEN Ordering Facility: [facility] Address: [address] [place] [address] Result Comment: eAG: (Estimated average glucose) is a calculated value from HgbA1c and is home furnishings sales representative of the average blood glucose level in the last 2-3 month period. Performed By: #### 5 5454-3 #### [facility] CLIA [id number] [facility] [place] [address] [place] HbA1c (Bld) [Mass fraction] 6.4 % High 4.3-5.6 [facility] Comment on above: Order Comment: Speci men Type: BLOOD SPECIMEN Ordering Facility: [facility] Address: [address] [place] [address] Result Comment: [place] Diabetes Association guidelines indicate that patients with HgbA1c in the range 5.7-6.4% are at increased risk for development of diabetes, and intervention by lifestyle modification may be beneficial. HgbA1c greater or equal to 6.5% is considered diagnostic of diabetes. Performed By: #### 5 5454-3 #### [facility] CLIA [id number] [address] [place] [address] [place] Lipid 1996 panelon 3 Cholesterol [Mass/Vol] 193 mg/dL Normal <200 [facility] Comment on above: Order Comment: Toni men Type: BLOOD SPECIMEN Ordering Facility: [facility] Address: [address] [place] [address] Result Comment: <200 mg/dL, Desirable 200-239 mg/dL, Borderline high >239 mg/dL, High Performed By: #### P SAS1 #### [facility] CLIA [id number] [address] [place] [address] [place] Cholesterol in HDL [Mass/Vol] 56 mg/dL Normal >39 [facility] Comment on above: Order Comment: Toni men Type: BLOOD SPECIMEN Ordering Facility: [facility] Address: [address] [place] [address] Result Comment: 40-5 9 mg/dL, Acceptable >59 mg/dL, High: Negative risk factor for coronary heart disease <40 mg/dL, Low: Positive risk factor for coronary heart disease Performed By: #### P SAS1 #### [facility] CLIA [id number] [address] [place] [address] [place] Cholesterol in LDL [Mass/Vol] 127 mg/dL High <100 [facility] Comment on above: Order Comment: Toni men Type: BLOOD SPECIMEN Ordering Facility: [facility] Address: [address] [place] [address] Result Comment: <100 mg/dL, Optimal 100-129 mg/dL, Near optimal/above optimal 130-159 mg/dL, Borderline high 160-189 mg/dL, High >189 mg/dL, Very high Secondary prevention optimal LDL Cholesterol levels are recommended to be < 70 mg/dL Performed By: #### P SAS1 #### [facility] CLIA [id number] [address] [place] [address] [place] Cholesterol in LDL/Cholesterol in HDL [Mass ratio] 2.27 {ratio} Normal <2.54 [facility] Comment on above: Order Comment: Toni feldman Type: BLOOD SPECIMEN Ordering Facility: [facility] Address: [address] [place] [address] Result Comment: Shadia brewer: 1. National Cholesterol Education Program ATP III Guideline At-A-Glance Quick Desk Reference: National Heart, Lung, and Blood [place]. National Institutes of Health. 2001: NIH Publication No. 01-3305. 2. An International Atherosclerosis Society position paper: global recommendations for the management of dyslipidemia: executive summary, Atherosclerosis. 2014: 232(2):410-413. Performed By: #### P SAS1 #### [facility] CLIA [id number] [address] [place] [address] [place] Cholesterol in VLDL [Mass/Vol] 10 mg/dL Normal <30 [facility] Comment on above: Order Comment: Toni feldman Type: BLOOD SPECIMEN Ordering Facility: [facility] Address: [address] [address] Performed By: #### P SAS1 #### [facility] CLIA [id number] [address] [place] Cholesterol non HDL [Mass/Vol] 137 mg/dL High <130 [facility] Comment on above: Order Comment: Toni feldman Type: BLOOD SPECIMEN Ordering Facility: [facility] Address: [address] [address] Result Comment: <130 mg/dL, Optimal 130-159 mg/dL, Near optimal/above optimal 160-189 mg/dL, Borderline high 190-219 mg/dL, High >219 mg/dL, Very high Secondary prevention optimal non HDL Cholesterol levels are recommended to be <100 mg/dL Performed By: #### P SAS1 #### [facility] CLIA [id number] [address] [place] [address] [facility] Cholesterol.total/Cho lesterol in HDL [Mass ratio] 3.45 {ratio} Normal <5.10 [facility] Comment on above: Order Comment: Speci men Type: BLOOD SPECIMEN Ordering Facility: [facility] Address: [address] [place] [address] Performed By: #### P SAS1 #### [facility] CLIA [id number] [address] [place] [address] [place] FASTING TIME 12 hrs Normal [facility] Comment on above: Order Comment: Speci men Type: BLOOD SPECIMEN Ordering Facility: [facility] Address: [address] [place] [address] Performed By: #### P SAS1 #### [facility] CLIA [id number] [address] [place] [address] [place] Triglyceride [Mass/Vol] 48 mg/dL Normal <150 [facility] Comment on above: Order Comment: Speci men Type: BLOOD SPECIMEN Ordering Facility: [facility] Address: [address] [place] [address] Result Comment: <150 mg/dL, Normal 150-199 mg/dL, Borderline high 200-499 mg/dL, High >499 mg/dL, Very high Performed By: #### P SAS1 #### [facility] CLIA [id number] [address] [place] [address] [place] PSA/PROSTSPECAG SCRNon 09-03 Prostate specific Ag [Mass/Vol] 1.22 ng/mL Normal <2.60 [facility] Comment on above: Order Comment: Speci men Type: BLOOD SPECIMEN Ordering Facility: [facility] Address: [address] [place] [address] Result Comment: Tota l PSA test methodology used is the Electrochemiluminescence Immunoassay by [employer]. Total PSA values by differing methodologies cannot be interchanged. Performed By: #### P SAS1 #### [facility] CLIA [id number] [address] [place], [place] [id number] [place] Keanu 09-02-2022 CNPN Telephone (INTMWS) YENI CAGE ([id number]) 1950 M Date Time Provider Department 09/02/22 TRENT KRAMER INTMWS During your visit today, we recorded the following information about you: Marry Luna LPN 09/02/2022 11:24 AM Signed Patient scheduled for Annual Medicare Wellness, 09/10/2022. Please put in Lab orders. Marry Glover APRN.DOT COMPLIANCE COORDINATOR 09/02/2022 2:05 PM Signed Fasting labs ordered Miryam Glover APRN.ADELAIDA Sorensen Ma 09/02/2022 3:01 PM Signed Patient notified, verbalized understanding. Momo Sorensen Ma Allergies As of Date: 09/02/2022 (No Known Allergies) Date Reviewed: 05/12/2021 Reviewed by: Manjinder Woody Jr., MD - Fully Assessed Reason for Visit: Orders [681] Primary Visit Diagnosis:Primary hypertension [I10] Other Visit Diagnoses:Impaired fasting glucose [R73.01] Screening for prostate cancer [Z12.5] Order(s):LIPID PANEL BASIC [SQLIPB] Order #: [id number] FUTURE COMP METABOLIC PANEL [SQCMP] Order #: [id number] FUTURE HGB A1C [XKXSK5L] Order #: [id number] FUTURE PSA/PROSTSPECAG SCRN [SQPSAS1] Order #: [id number] FUTURE CBC [SQCBC] Order #: [id number] FUTURE Prescriptions as of 09/02/2022 - lisinopril-hydroCHLOROthiaz ellis (ZESTORETIC) 20-12.5 mg per tablet Take 1 tablet by mouth every morning. - CPAP Change Auto PAP setting to 5-12 cmH2O. Needs supplies (masks, tubing, filters). Lifetime supplies. [facility] - CPAP Initiate Auto PAP @ 5-20 cm of water with humidification. Mask (per patient preference) optional chin strap (if indicated) , filters, tubing, humidifier and lifetime supplies. - omeprazole (PRILOSEC) 20 mg capsule Take 20 mg by mouth once daily. - MULTI-VITAMIN ORAL Take by mouth once daily. - aspirin(ECOTRIN LOW STRENGTH 81 MG TAB) Take one(1) tablet daily. Problem List As Of Date 09/02/2022 Noted Resolved ESOPHAGEAL REFLUX [K21.9] 04/07/2005 Hypertension [I10] 12/03/2009 Erectile dysfunction [N52.9] 12/03/2009 05/18/2014 Loss of weight [R63.4] 02/03/2010 12/15/2010 Esophagitis, unspecified [K20.90] 02/03/2010 01/13/2012 Special screening for malignant neoplasms, colo*02/03/2010 01/13/2012 Diverticulosis of colon (without mention of hem*02/03/2010 01/13/2012 Internal hemorrhoids without mention of complic*02/03/2010 01/13/2012 Impaired fasting glucose [R73.01] 07/14/2012 CAPO (obstructive sleep apnea) [G47.33] 04/19/2020 Encounter Status:Closed by MOMO SORENSEN MA on 09/02/22 Normal [facility] AUDIOGRAMon 05-25-2022 [facility] Radiology Study observation (narrative) [facility] CARDIAC RHYTHM (SCANNED)[facility] 0 [facility]20[facility] Vital Signs Date Time Vital Sign Value Performing Clinician Faci litanna 05-18-2023 08:48-0500 Body height 170.2 cm Gera Youngblood MD Work Phone: [facility] 05-18-2023 08:48-0500 Body mass index (BMI) [Ratio] 28.76 kg/m2 Gera Youngblood MD Work Phone: [facility] 05-18-2023 08:48-0500 Body weight 83.3 kg Gera Youngblood MD Work Phone: [facility] 05-18-2023 08:48-0500 Respiratory rate 14 /min Gera Youngblood MD Work Phone: [facility] 05-25-2022 08:22-0500 Body mass index (BMI) [Ratio] 28.76 kg/m2 Gera Youngblood MD Work Phone: [facility] 05-25-2022 08:22-0500 Body weight 83.28 kg Gera Youngblood MD Work Phone: [facility] 05-25-2022 08:22-0500 Heart rate 79 /min Gera Youngblood MD Work Phone: [facility] 05-25-2022 08:22-0500 SaO2% (BldA) [Mass fraction] 99 % Gera Youngblood MD Work Phone: [facility] 03-24-2022 08:22-0400 Body height 170.2 cm Gera Youngblood MD Work Phone: [facility] 03-24-2022 08:22-0400 Body mass index (BMI) [Ratio] 27.88 kg/m2 Gera Youngblood MD Work Phone: [facility] 03-24-2022 08:22-0400 Body weight 80.74 kg Gera Youngblood MD Work Phone: [facility] 03-24-2022 08:22-0400 Heart rate 82 /min Gera Youngblood MD Work Phone: [facility] 03-24-2022 08:22-0400 SaO2% (BldA) [Mass fraction] 94 % Gera Youngblood MD Work Phone: [facility] 03-05-2022 10:45-0400 Diastolic blood pressure 69 mm[Hg] Gera Youngblood MD Work Phone: [facility] 03-05-2022 10:45-0400 Heart rate 52 /min Gera Youngblood MD Work Phone: [facility] 03-05-2022 10:45-0400 Respiratory rate 19 /min Gera Youngblood MD Work Phone: [facility] 03-05-2022 10:45-0400 SaO2% (BldA) [Mass fraction] 95 % Gera Youngblood MD Work Phone: [facility] 03-05-2022 10:45-0400 Systolic blood pressure 113 mm[Hg] Gera Youngblood MD Work Phone: [facility] 03-05-2022 09:54-0400 Body temperature 97.9 [degF] Gera Youngblood MD Work Phone: [facility] 03-05-2022 07:22-0400 Body height 170.2 cm Gera Youngblood MD Work Phone: [facility] 03-05-2022 07:22-0400 Body mass index (BMI) [Ratio] 27.99 kg/m2 Gera Youngblood MD Work Phone: [facility] 03-05-2022 07:22-0400 Body weight 81.06 kg Gera Youngblood MD Work Phone: [facility] 12-02-2021 10:16-0400 Body mass index (BMI) [Ratio] 27.91 kg/m2 Gera Youngblood MD Work Phone: [facility] 12-02-2021 10:16-0400 Body weight 80.83 kg Gera Youngblood MD Work Phone: [facility] 12-02-2021 10:16-0400 Heart rate 65 /min Gera Youngblood MD Work Phone: [facility] 12-02-2021 10:16-0400 SaO2% (BldA) [Mass fraction] 84 % Gera Youngblood MD Work Phone: [facility] 10-07-2021 08:50-0400 Body mass index (BMI) [Ratio] 27.35 kg/m2 Gera Youngblood MD Work Phone: [facility] 10-07-2021 08:50-0400 Body weight 79.2 kg Gera Youngblood MD Work Phone: [facility] 10-07-2021 08:50-0400 Heart rate 70 /min Gera Youngblood MD Work Phone: [facility] 10-07-2021 08:50-0400 SaO2% (BldA) [Mass fraction] 93 % Gera Youngblood MD Work Phone: [facility] 09-18-2021 14:30-0400 Diastolic blood pressure 81 mm[Hg] Gera Youngblood MD Work Phone: [facility] 09-18-2021 14:30-0400 Heart rate 67 /min Gera Youngblood MD Work Phone: [facility] 09-18-2021 14:30-0400 Respiratory rate 16 /min Gera Youngblood MD Work Phone: [facility] 09-18-2021 14:30-0400 Systolic blood pressure 132 mm[Hg] Gera Youngblood MD Work Phone: [facility] 09-18-2021 13:35-0400 Body temperature 97.7 [degF] Gera Youngblood MD Work Phone: [facility] 09-18-2021 13:35-0400 SaO2% (BldA) [Mass fraction] 96 % Gera Youngblood MD Work Phone: [facility] 09-18-2021 06:51-0400 Body height 170.2 cm Gera Youngblood MD Work Phone: [facility] 09-18-2021 06:51-0400 Body mass index (BMI) [Ratio] 27.41 kg/m2 Gera Youngblood MD Work Phone: [facility] 09-18-2021 06:51-0400 Body weight 79.38 kg Gera Youngblood MD Work Phone: [facility] 09-16-2021 13:34-0400 Body height 170.2 cm Gera Youngblood MD Work Phone: [facility] 09-16-2021 13:34-0400 Body mass index (BMI) [Ratio] 28 kg/m2 Gera Youngblood MD Work Phone: [facility] 09-16-2021 13:34-0400 Body weight 81.1 kg Gera Youngblood MD Work Phone: [facility] 09-16-2021 13:34-0400 Heart rate 69 /min Gera Youngblood MD Work Phone: [facility] 09-16-2021 13:34-0400 SaO2% (BldA) [Mass fraction] 96 % Gera Youngblood MD Work Phone: [facility] Encounters Encounter Date Encounter Type Care Provider Facility Start: 02-11-2024 Encounter for other preprocedural examination Alma Delia Barbosa [facility] Start: 01-25-2024 End: [facility] Start: 01-10-2024 End: 01-10-2024 ambulatory Alma Delia Barbosa Facility:[facility] Start: 12-27-2023 End: 12-27-2023 ambulatory Beny Franco Facility:[facility] Start: 09-23-2023 End: 09-23-2023 Non-patient / Non-visit Dr. Beny Franco Work Phone: [facility] Work Phone: Start: 09-23-2023 End: 09-23-[address] Beny Franco Work Phone: [facility] Work Phone: Start: 09-23-2023 End: 09-23-[address] Beny Franco Work Phone: [facility] Work Phone: Start: 09-23-2023 End: 09-23-2023 ambulatory Justin Martinez Facility:[facility] Start: 05-18-2023 [facility] Start: 05-18-2023 End: 05-18-2023 Office outpatient visit 25 minutes Gera Youngblood MD Work Phone: [facility] [place] Comment on above: Impacted cerumen of right ear (Primary Dx); Mixed conductive and sensorineural hearing loss of left ear with restricted hearing of right ear; Partial necrosis of left ear ossicles; Retraction of tympanic membrane of left ear Start: 05-18-2023 End: 05-18-2023 Patient encounter procedure Elizabeth Pagan Work Phone: [facility] [place] Comment on above: Tinnitus, left (Prim kelli Dx); Sensorineural hearing loss (SNHL) of right ear with restricted hearing of left ear; Mixed conductive and sensorineural hearing loss of left ear with restricted hearing of right ear Start: 04-24-2023 End: 04-24-2023 ambulatory [facility] Work Phone: Start: 04-24-2023 End: 04-24-2023 Patient encounter procedure [facility] Work Phone: Start: 04-24-2023 End: 04-24-2023 ambulatory Beny Franco Facility:[facility] Start: 04-20-2023 ambulatory Luba Wilder [facility] Comment on above: Population Health Na vigation Outreach ([facility] med adherence/) Start: 09-04-2022 Telephone encounter Miryam Older SHEET METAL PATTERN CUTTER.DOT COMPLIANCE COORDINATOR Work Phone: [facility] [place] Comment on above: Results Start: 09-03-2022 End: 09-04-[address] [facility] Facility:[facility] Start: 09-02-2022 Refill Trent madrid MD Work Phone: [facility] [place] Comment on above: Refill Request Orders Start: 05-25-2022 ambulatory TRENT KRAMER [facility] Start: 05-25-2022 End: 05-25-2022 Postop follow up visit related to original px Gera Youngblood MD Work Phone: [facility] [place] Comment on above: Cholesteatoma, left (Primary Dx); Mixed conductive and sensorineural hearing loss of left ear with restricted hearing of right ear; Partial necrosis of left ear ossicles Start: 05-25-2022 End: 05-25-2022 Patient encounter procedure Lee Pagan Work Phone: [facility] [place] Comment on above: Mixed hearing loss, bilateral (Primary Dx); Tinnitus, left Start: 03-24-2022 End: 03-24-2022 Postop follow up visit related to original px Gera Youngblood MD Work Phone: [facility] [place] Comment on above: 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); Mixed conductive and sensorineural hearing loss of left ear with restricted hearing of right ear Start: 03-05-2022 End: 03-05-2022 Subsequent hospital visit by physician Gera Youngblood MD Work Phone: [facility] [place] Comment on above: Mixed conductive and sensorineural hearing loss of left ear with restricted hearing of right ear Start: 12-02-2021 End: 12-02-2021 Postop follow up visit related to original px Gera Youngblood MD Work Phone: [facility] [place] Comment on above: Mixed conductive and sensorineural hearing loss of left ear with restricted hearing of right ear (Primary Dx); Partial necrosis of left ear ossicles Start: 12-02-2021 End: 12-02-2021 Patient encounter procedure Lee Parker Hiren Pagan Work Phone: [facility] [place] Comment on above: Sensorineural hearin g loss (SNHL) of right ear with restricted hearing of left ear (Primary Dx); Mixed conductive and sensorineural hearing loss of left ear with restricted hearing of right ear Start: 10-07-2021 End: 10-07-2021 Postop follow up visit related to original px Gera Youngblood MD Work Phone: [facility] [place] Comment on above: Cholesteatoma, left (Primary Dx); Chronic atticoantral suppurative otitis media of left ear; Mixed conductive and sensorineural hearing loss of left ear with restricted hearing of right ear Start: 10-03-2021 Patient encounter status Sally Kramer MD Work Phone: [facility] [place] Start: 10-03-2021 Telephone encounter Trent perez MD Work Phone: [facility] [place] Comment on above: Lab Orders Start: 09-18-2021 End: 09-18-2021 Subsequent hospital visit by physician Gera Youngblood MD Work Phone: [facility] Comment on above: Cholesteatoma, left Start: 09-16-2021 End: 09-16-2021 Office outpatient new 45 minutes Gera Youngblood MD Work Phone: [facility] [place] Comment on above: Cholesteatoma, left (Primary Dx); Chronic atticoantral suppurative otitis media of left ear; Mixed conductive and sensorineural hearing loss of left ear with restricted hearing of right ear Start: 09-16-2021 End: 09-16-2021 Patient encounter procedure Elizabeth Yung Work Phone: [facility] [place] Comment on above: Mixed hearing loss, unilateral (Primary Dx); Sensorineural hearing loss, unilateral; Cholesteatoma of attic of ear, left Start: 09-02-2021 Refill Trent madrid MD Work Phone: [facility] [place] Comment on above: Prescription Refills Start: 08-13-2020 End: 08-13-2020 Patient encounter procedure MANJINDER SPEAR [facility] Procedures Date Procedure Procedure Detail Performing Clinician Start: 09-23-2023 MRI of lower extremity Dr. Beny Franco Work Phone: Start: 05-18-2023 AUDIOGRAM Lee B Ga rish AuD Work Phone: Start: 09-03-2022 Lipid 1996 panel - S lilly or Plasma Luba Tina Start: 05-25-2022 AUDIOGRAM Ricarda B H all AuD Work Phone: Start: 12-02-2021 AUDIOGRAM Manuela D Ki rk AuD Work Phone: Start: 09-18-2021 CARDIAC RHYTHM Other Ot her Start: 09-16-2021 AUDIOGRAM Elizabeth Yung Work Phone: Start: 09-02-2020 Colonoscopy Trent Wheat MD Work Phone: Start: 02-13-2019 Adult depression screening assessment Trent Kramer MD Work Phone: Plan of Treatment Date Care Activity Detail Author Start: 09-04-2027 Lipid 1996 panel - Serum or Plasma Lipid Screening [facility] Start: 09-04-2027 LIPID SCREEN LIPID SCREEN [facility] Start: 09-03-2025 DIABETES SCREEN DIABETES SCREEN [facility] Start: 09-03-2025 Diabetes Screening Diabetes Screening [facility] Start: 09-02-2025 Colonoscopy COLONOSCOPY [facility] Start: 09-02-2025 COLORECTAL CANCER SCREENING COLORECTAL CANCER SCREENING [facility] Start: 08-14-[address] [facility] Start: 08-14-2025 Urine microalbumin profile DTaP,Tdap,Td Vaccine (2 - Td or Tdap) [facility] Start: 08-10-2025 Urine microalbumin profile DTAP,TDAP,TD (1 - Tdap) [facility] Comment on above: Postponed from 08/11/2015 (Postponed To Appropriate Date) Start: 11-05-2024 LIPID SCREEN LIPID SCREEN [facility] Start: 06-15-2023 DIABETES SCREEN DIABETES SCREEN [facility] Start: 05-18-2023 End: 05-18-2023 Patient encounter [facility] [place] Start: 02-05-2023 Covid-19 Vaccine ( season) Covid-19 Vaccine () [facility] Start: 02-05-2023 Influenza vaccination [facility] Start: 09-25-2022 Pneumococcal vaccination PNEUMOCOCCAL VACCINE SERIES (2 - PPSV23 if available, else PCV20) [facility] Start: 09-25-2022 Pneumococcal Vaccine: 65+ (2 - PPSV23 or PCV20) Pneumococcal Vaccine: 65+ (2 - PPSV23 or PCV20) [facility] Start: 09-25-2022 PNEUMOCOCCAL: 65+ (2 - PPSV23 if available, else PCV20) PNEUMOCOCCAL: 65+ (2 - PPSV23 if available, else PCV20) [facility] Start: 09-02-2022 End: 11-02-2022 CBC panel - Blood by Automated count CBC Lab Routine Primary hypertension Expected: 09/02/2022, Expires: 11/02/2022 [facility] Work Phone: Comment on above: Expected: 09/02/2022, Expires: Start: 09-02-2022 End: 11-02-2022 Comprehensive metabolic 2000 panel - Serum or Plasma COMP METABOLIC PANEL Lab Routine Primary hypertension Expected: 09/02/2022, Expires: 11/02/2022 [facility] Work Phone: Comment on above: Expected: 09/02/2022, Expires: 3 Start: 09-02-2022 End: 11-02-2022 Hemoglobin A1c in Blood HGB A1C Lab Routine Impaired fasting glucose Expected: 09/02/2022, Expires: 11/02/2022 [facility] Work Phone: Comment on above: Expected: 09/02/2022, Expires: 3 Start: 09-02-2022 End: 11-02-2022 Lipid 1996 panel - Serum or Plasma LIPID PANEL BASIC Lab Routine Primary hypertension Expected: 09/02/2022, Expires: 11/02/2022 [facility] Work Phone: Comment on above: Expected: 09/02/2022, Expires: 3 Start: 09-02-2022 End: 11-02-2022 PSA/PROSTSPECAG SCRN PSA/PROSTSPECAG SCRN Lab Routine Screening for prostate cancer Expected: 09/02/2022, Expires: 11/02/2022 [facility] Work Phone: Comment on above: Expected: 09/02/2022, Expires: 3 Start: 06-07-2022 ADVANCE DIRECTIVE DISCUSSION ADVANCE DIRECTIVE DISCUSSION [facility] Start: 06-07-2022 DEPRESSION ASSESSMENT DEPRESSION ASSESSMENT [facility] Start: 05-25-2022 End: 05-25-2022 Patient encounter procedure [facility] [place] Start: 04-19-2022 ANNUAL PCP TEAM CHRONIC DISEASE VISIT ANNUAL PCP TEAM CHRONIC DISEASE VISIT [facility] Start: 03-18-2022 Subsequent hospital visit by physician 03/18/2022 Hospital Encounter Multispecialty Gera Youngblood MD [address] [facility] [address] [place] [address] Mixed conductive and sensorineural hearing loss of left ear with restricted hearing of right ear [facility] Comment on above: Mixed conductive and sensorineural heari ng loss of left ear with restricted hearing of right ear Start: 03-05-2022 End: 03-05-2022 Graft ear crtlg autogenous nose/ear GRAFTING EAR CARTILAGE TO NOSE EAR 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 03/05/2022 7:59 AM EDT [facility] Start: 03-05-2022 End: 03-05-2022 Grafting of autologous soft tiss by direct exc GRAFT AUTO SOFT TISSUE BY DIRECT EXCISION 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 03/05/2022 7:59 AM EDT [facility] Start: 03-05-2022 End: 03-05-2022 Tympanoplasty w/o mastoidec 1st/revj prosth torp TYMPANOPLASTY WITH OSSICULAR CHAIN RECONSTRUCTION 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 03/05/2022 7:59 AM EDT [facility] Start: 02-05-2022 End: 02-05-2022 ambulatory 02/05/2022 Telemed Clin Support Multispecialty [facility] Start: 02-05-2022 [facility] Start: 02-05-2022 SHINGRIX VACCINE (2 of 2) SHINGRIX VACCINE (2 of 2) [facility] Start: 12-02-2021 End: 12-02-2021 Patient encounter procedure [facility] [place] Start: 10-03-2021 End: 12-03-2021 MUMPS IGG AB MUMPS IGG AB Lab Routine Immunity status testing Expected: 10/03/2021, Expires: 12/03/2021 [facility] Work Phone: Comment on above: Expected: 10/03/2021, Expires: 2 Start: 10-03-2021 End: 12-03-2021 RUBELLA IGG AB RUBELLA IGG AB Lab Routine Immunity status testing Expected: 10/03/2021, Expires: 12/03/2021 [facility] Work Phone: Comment on above: Expected: 10/03/2021, Expires: 2 Start: 10-03-2021 End: 12-03-2021 RUBEOLA (MEASLES)IGG RUBEOLA (MEASLES)IGG Lab Routine Immunity status testing Expected: 10/03/2021, Expires: 12/03/2021 [facility] Work Phone: Comment on above: Expected: 10/03/2021, Expires: 2 Start: 09-18-2021 End: 09-18-2021 Admission to same day surgery center 09/18/2021 Surgery Multispecialty Gera Youngblood MD [address] [facility] [address] [place] [id number] TYMPANOPLASY MASTOIDECTOMY INTACT OR RECONSTRUCTED CANAL WALL WITH PSB OSSICULAR CHAIN RECONSTRUCTION [facility] Comment on above: TYMPANOPLASY MASTOIDECTOMY INTACT OR REC ONSTRUCTED CANAL WALL WITH PSB OSSICULAR CHAIN RECONSTRUCTION Start: 09-18-2021 Subsequent hospital visit by physician 09/18/2021 Hospital Encounter Multispecialty Gera Youngblood MD [address] [facility] [address] [place] [address] Cholesteatoma, left [facility] Comment on above: Cholesteatoma, left Start: 09-18-2021 End: 09-18-2021 Microsurg tqs req use operating microscope [facility] Start: 09-18-2021 End: 09-18-2021 Tmpp mastoidect ntc/rcnsted canal wall ocr [facility] Start: 09-16-2021 End: 09-16-2022 CT Temporal bone WO contrast CT TEMPORAL BONES WITHOUT CONTRAST Imaging Routine Cholesteatoma, left Expected: 09/16/2021, Expires: 09/16/2022 [facility] Comment on above: Expected: 09/16/2021, Expires: 3 Start: 06-19-2021 COVID-19 VACCINE (3 - Booster for Abdi series) COVID-19 VACCINE (3 - Booster for Abdi series) [facility] Start: 06-07-2021 ADVANCE DIRECTIVE DISCUSSION ADVANCE DIRECTIVE DISCUSSION [facility] Start: 02-05-2021 Influenza vaccination INFLUENZA (#1) [facility] Start: 10-08-2020 COVID-19 VACCINE (2 - Booster for Abdi series) COVID-19 VACCINE (2 - Booster for Abdi series) [facility] Start: 02-14-2020 Adult depression screening assessment DEPRESSION SCREENING [facility] Start: 08-09-2019 BP CONTROLLED (<130/80) BP CONTROLLED (<130/80) [facility] Start: 01-28-2014 FECAL OCCULT BLOOD FECAL OCCULT BLOOD [facility] Start: 2013 Abdominal aortic aneurysm screening ABDOMINAL AORTIC ANEURYSM HIGH RISK SCREEN [facility] Start: 2013 Pneumococcal vaccination PNEUMOCOCCAL VACCINE SERIES (1 - PCV) [facility] Start: 2008 RSV Vaccine (1 - 1-dose 60+ series) RSV Vaccine (1 - 1-dose 60+ series) [facility] Start: 1998 Prostate specific antigen measurement PROSTATE CANCER SCREENING DISCUSSION [facility] Start: 1998 SHINGRIX VACCINE (1 of 2) SHINGRIX VACCINE (1 of 2) [facility] Start: 1998 Zoster vaccine hzv live for subcutaneous use ZOSTER (SHINGLES) VACCINE (1 of 2) [facility] Start: 1993 COLOGUARD (FIT-DNA) COLOGUARD (FIT-DNA) [facility] Start: 1993 Colonoscopy COLORECTAL CANCER SCREENING DISCUSSION [facility] Start: [address] COLONOGRAPHY [facility] Start: 1993 Screening for malignant neoplasm of colon COLORECTAL CANCER SCREENING DISCUSSION [facility] Start: 1993 SIGMOIDOSCOPY SIGMOIDOSCOPY [facility] Start: 1988 Fasting lipid profile LIPID SCREENING [facility] Start: 1988 Lipid panel LIPID SCREENING [facility] Start: 1967 Third diphtheria, tetanus and acellular pertussis (DTaP) vaccination TDAP (ADULT) [facility] Start: 1966 [address] [facility] Start: 1953 COVID-19 VACCINE (#1) COVID-19 VACCINE (#1) [facility] Start: 1953 COVID-19 VACCINE (1) COVID-19 VACCINE (1) [facility] Start: 01-30-1949 COVID-19 VACCINE (#1) COVID-19 VACCINE (#1) [facility] Start: 1948 Hepatitis C antibody, confirmatory test HEPATITIS C VIRUS SCREENING [facility] Start: 1948 Hepatitis C screening HEPATITIS C VIRUS SCREENING [facility] Binocular microscopy separate dx procedure OR EAR MICROSCOPY EXAMINATION OR Charge Routine Cholesteatoma, left Ordered: 09/16/2021 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 [facility] Immunizations Immunization Date Immunization Notes Care Provider Fa cility 12-11-2021 hepatitis A vaccine, adult dosage Trent Kramer MD Work Phone: [facility] Work Phone: 12-11-2021 zoster vaccine recombinant Trent Kramer MD Work Phone: [facility] Work Phone: 09-25-2021 hepatitis B vaccine, adult dosage Trent Kramer MD Work Phone: [facility] Work Phone: 09-25-2021 pneumococcal conjuga te vaccine, 13 valent Trent Kramer MD Work Phone: [facility] Work Phone: 08-13-2020 COVID-19 vaccine (ABDI) Trent Kramer MD Work Phone: [facility] Work Phone: 06-28-2017 influenza virus vaccine, unspecified formulation Luba Wilder [facility] 08-10-2015 tetanus and diphther ia toxoids, adsorbed, preservative free, for adult use (5 Lf of tetanus toxoid and 2 Lf of diphtheria toxoid) Trent Kramer MD Work Phone: [facility] 08-26-2007 hepatitis B vaccine, pediatric or pediatric/adolescent dosage Trent Kramer MD Work Phone: [facility] 06-14-2007 hepatitis A vaccine, unspecified formulation Trent Kramer MD Work Phone: [facility] 06-14-2007 hepatitis B vaccine, pediatric or pediatric/adolescent dosage Trent Kramer MD Work Phone: [facility] 04-07-2005 tetanus and diphther ia toxoids, adsorbed, preservative free, for adult use (2 Lf of tetanus toxoid and 2 Lf of diphtheria toxoid) Trent Kramer MD Work Phone: [facility] Work Phone: Payers Date Payer Category Payer Medicare [id number] 2023 Self-pay 2022 Medicare MEDICARE ANTHEM HMO OR PPO MEDICARE ANTHEM HMO OR PPO [id number] 2022-Present [address] [place] [address] [id number] 2022 Unknown [id number] 2021 Unknown [id number] 2020 Unknown JORGE LUIS FONTANEZ [employer] SS PPO [id number] 2020-Present [phone] [address] [place] [address] PPO [id number] 2020 Unknown [id number] 1948 Unknown [id number] 1948 Unknown [id number] 1948 Unknown [id number] 1948 Unknown [id number] 1948 Unknown [id number] 1948 Unknown [id number] Medicare MEDICARE PART A B [id number] Unknown [id number] Unknown [id number] Unknown [id number] Unknown [id number] Unknown [id number] Unknown [id number] Social History Date Type Detail Facility Start: 01-13-2012 End: 09-16-2021 Tobacco smoking status NHIS Never smoked tobacco [facility] Start: 05-12-2021 Alcohol intake Current drinke r of alcohol (finding) [facility] Start: 05-12-2021 End: 05-18-2023 Alcohol intake [facility] Start: 01-13-2012 History SDOH Alcohol Comment 1 glass of wine 1-2 times per month [facility] Start: 1950 Sex Assigned At Not on file [facility] Start: 01-13-2012 End: 09-16-2021 Tobacco use and exposure Smokeless tobacco non-user [facility] Start: 03-05-2022 End: 05-18-2023 Alcohol intake Ex-drinker (finding) [facility] Start: 05-15-2022 End: 05-25-2022 Exposure to SARS-CoV-2 (event) Unable to assess [facility] Start: 05-12-2021 End: 05-18-2023 Tobacco use panel [facility] Adult Depression Screening Assessment 0 [facility] Start: 1950 Sex Assigned At Male [facility] Medical Equipment Procedure Code Equipment Code Equipment Origin al Text Equipment Identifier Dates Non-Reinforced Medical Grade Silcone Sheeting [id number] Start: 09-18-2021 Prosthesis Ossic ular 2-5.6mm 1.45mm [place] 1.5mm 2.5mm - [id number] Start: 03-05-2022 Clinical Notes 02-03-2010 to 05-18-2023 Gera Youngblood MD - 05/18/2023 9:00 AM Latasha Castañeda - 05/18/2023 8:30 AM [facility] Population Health NavigatorLuba - 04/20/2023 11:14 AM Kayla Youngblood MD - 05/25/2022 9:00 AM EST Note Date & Type Note Facility 05-18-2023 History of Present illness Narrative Images from the original note were not included. Office Visit Note - 05/18/2023 Patient: YENI CAGE Attending Physician: Gera Youngblood MD CC: Chief Complaint Patient presents with Follow-up Patient here for follow up. Informant: The history was obtained from the patient Interval HPI 05/18/23: 72 y.o. male presenting for annual follow-up with audiogram. No current otologic concerns; no otorrhea, otalgia, and/or worsened hearing. Uses ROMERO on left side. Notes good hearing function with some issues in crowded spaces/with crowd noise. The past medical history, past surgical history, family history, social history, medications, allergies, and review of systems were reviewed today and are documented in IHIS &/or a scanned document completed by the patient (or guardian). Interval HPI 05/25/22: F/U visit for post-op after L tympanoplasty with ear cartilage reconstruction and ossicular chain reconstruction for history of cholesteatoma on 03/05/22. Audiogram today shows improvement in hearing in high frequencies but residual low frequency CHL. Feels pressure in his ears. Hx of L-ICW tympanomastoidectomy w/o OCR (09/18/21) for cholesteatoma. INTRAOPERATIVE FINDINGS (03/05/22): 1. Transcanal approach 2. 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 3. Significant middle ear mucosal adhesions-lysed. 4. Prior silastic removed. 2.5mm Centered [place] Bianca PORP placed with cartilage cap 5. Perichondium harvested from tragal cartilage placed at posterior superior EAC to reinforce coverage of the tympanomeatal flap in that region. Physical Exam: Resp 14 Ht 1.702 m (5' 7) Wt 83.3 kg (183 lb 10.3 oz) BMI 28.76 kg/m Smoking Status Never Head and Face Inspection: Normocephalic and atraumatic without masses or lesions Palpation: No mastoid tenderness or fluctuance Salivary Glands: No masses or tenderness Facial Strength: Facial motility symmetric and full bilaterally Left- House-Brackman Grade 1/6 Right- House-Brackman Grade 1/6 Ear Periauricular Skin: Left - No lesions Right - No lesions Pinna: Left - External ear intact and fully developed Right - External ear intact and fully developed External canal: Left - Canal is patent with intact skin Right - Canal is patent with intact skin. Right-sided cerumen impaction, which was removed. Tympanic Membranes: Left - Well healed cartilage graft without perforation. retraction anterior to cartilage graft without debris or perforation. Right - Clear and mobile Middle Ears: Left - CNE Right - Aerated, no effusion, no masses Procedure Note: Preoperative diagnosis: Right Cerumen Impaction Postoperative diagnosis: Same Procedure: Right Removal of Impacted Cerumen Anesthesia: None Indications and Consent: The patient is a 72 y.o. male who presents for removal of right cerumen impaction. Indications for cerumen removal: Visual considerations: Cerumen impairs exam of clinically significant portions of the external auditory canal, tympanic membrane, or middle ear condition Prior to the procedure, the benefits and risks of cerumen removal were discussed with the patient (and/or the consenting guardian), including but not limited to bleeding, infection, injury to skin of the ear canal, recurrence of the present condition, perforation of the tympanic membrane, hearing loss, dizziness/vertigo, and the need for further procedure(s). The patient (guardian) understood and wished to proceed. Procedure/Findings: The right external auditory canal was visualized using the operating microscope. The canal was cleaned with the following findings: Instrumentation Used: Cerumen Instrumentation: Cerumen Loop and Suction Condition of Skin: Healthy, Tender Cerumen amount: large Cerumen Character: Soft Infection: None Following cleaning, the following treatments were administered: Application of Topical Medication: None EBL: Minimal Complications: None Disposition: The patient's condition was stable throughout the procedure. He was discharged in good condition. 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 We specifically discussed that improved hearing is not guaranteed with operative intervention, but that ossicular chain reconstruction with/without tympanoplasty could reduce the conductive component of his L-sided hearing loss. We also discussed the change, most notably in low frequencies, in his L-sided hearing function seen on today's audiogram from last year's audiogram. At this point in time, he elects to continue hearing amplification and will consider this option should his hearing function worsen and/or issues arise. Plan: - Continue conventional hearing aid use - RTC in 2 years with audiogram Gera Youngblood MD Professor - Otology, Neurotology & Cranial Base Surgery Department of Otolaryngology-Head and Neck Surgery [address] [place] [address], [address] [place] [address] [place] [address] documented in this encounter [facility] 05-18-2023 History of Present illness Narrative Images from the original note were not included. Yeni Cage was seen for audiogram today in conjunction with a visit with Dr Youngblood. Otoscopy was unremarkable, Au. See detailed audiogram report including, history, diagnosis and recommendations below. ICD-10-CM 1. Tinnitus, left H93.12 2. Sensorineural hearing loss (SNHL) of right ear with restricted hearing of left ear H90.A21 3. Mixed conductive and sensorineural hearing loss of left ear with restricted hearing of right ear H90.A32 Morris Markham Doctor of Audiology Department of Otolaryngology-Head and Neck Surgery [address] [place] [address] [address] [place] [address] documented in this encounter [facility] 04-21-2023 Note HNO ID: [id number] Author: Tina Population Health Luba Diaz Service: ? Author Type: ? Type: Progress Notes Filed: 04/21/2023 9:30 AM Note Text: POPULATION HEALTH NAVIGATION OUTREACH Action/FYI [facility] med adherence Outcome- 2nd attempt- did not leave any message for 2nd attempt Patient Identified by Name and : NO Outreach Outcome/Action Unable to reach patient: no message left Did you use a PCP flex slot to schedule this appointment? N/A Navigation Signature: Luba Wilder Population Health Navigator April 21, 2023 9:28 AM [facility] 04-20-2023 Note Patient Outreach (NE TNAV) YENI CAGE ([id number]) 1950 M Date Time Provider Department 04/20/23 LUBA WILDER During your visit today, we recorded the following information about you: Tina Population [facility] Luba Diaz 04/20/2023 11:16 AM Signed POPULATION HEALTH NAVIGATION OUTREACH Action/ [facility] med adherence Outcome- lvm regarding reminder to refill medication lisinopril due in the [facility] portal. No mychart Will attempt callback Patient Identified by Name and : NO Outreach Outcome/Action Unable to reach patient: Left message Did you use a PCP flex slot to schedule this appointment? N/A Reason for Outreach Med Adherence Payer: Payor: JORGE LUIS [employer] / Plan: ANTHEM MEDIBLUE ACCESS / Product Type: PPO / Care Gap Reviewed:: N/A Reminder: Reminder note to check Health Maintenance for items below Health Maintenance items due: RSV Vaccine(1 - 1-dose 60+ series) Never done BP Controlled (<130/80) due on 08/09/2019 Annual PCP Team Chronic Disease Visit due on 04/19/2022 Advance Directive Discussion Never done Depression Assessment Never done Pneumococcal Vaccine: 65+(2 - PPSV23 or PCV20) due on 09/25/2022 Influenza Vaccine(1) due on 02/05/2023 Covid-19 Vaccine(3 - 2022-24 season) due on 02/05/2023 Navigation Signature: Luba Wilder Population Health Navigelvia April 20, 2023 11:14 AM Tina [facility] Luba Diaz 04/21/2023 9:30 AM Signed POPULATION HEALTH NAVIGATION OUTREACH Action/ [facility] med adherence Outcome- 2nd attempt- did not leave any message for 2nd attempt Patient Identified by Name and : NO Outreach Outcome/Action Unable to reach patient: no message left Did you use a PCP flex slot to schedule this appointment? N/A Navigation Signature: Luba Wilder Population Health Navigator April 21, 2023 9:28 AM Allergies As of Date: 04/20/2023 (No Known Allergies) Date Reviewed: 05/12/2021 Reviewed by: Manjinder Woody Jr., MD - Fully Assessed Reason for Visit: Population Health Navigation Outreach [3910] Cmt: [facility] erik adherence Prescriptions as of 04/21/2023 - lisinopril-hydroCHLOROthiazide (ZESTORETIC) 20-12.5 mg per tablet Take 1 tablet by mouth every morning. - CPAP Change Auto PAP setting to 5-12 cmH2O. Needs supplies (masks, tubing, filters). Lifetime supplies. [place] - CPAP Initiate Auto PAP @ 5-20 cm of water with humidification. Mask (per patient preference) optional chin strap (if indicated) , filters, tubing, humidifier and lifetime supplies. - omeprazole (PRILOSEC) 20 mg capsule Take 20 mg by mouth once daily. - MULTI-VITAMIN ORAL Take by mouth once daily. - aspirin(ECOTRIN LOW STRENGTH 81 MG TAB) Take one(1) tablet daily. Problem List As Of Date 04/20/2023 Noted Resolved ESOPHAGEAL REFLUX [K21.9] 04/07/2005 Hypertension [I10] 12/03/2009 Erectile dysfunction [N52.9] 12/03/2009 05/18/2014 Loss of weight [R63.4] 02/03/2010 12/15/2010 Esophagitis, unspecified [K20.90] 02/03/2010 01/13/2012 Special screening for malignant neoplasms, colo*02/03/2010 01/13/2012 Diverticulosis of colon (without mention of hem*02/03/2010 01/13/2012 Internal hemorrhoids without mention of complic*02/03/2010 01/13/2012 Impaired fasting glucose [R73.01] 07/14/2012 CAPO (obstructive sleep apnea) [G47.33] 04/19/2020 Encounter Status:Closed by [facility] on 04/20/23 [facility] 04-20-2023 Note HNO ID: [id number] Author: Tina Population Health Navigator, Luba Avilez Service: ? Author Type: ? Type: Progress Notes Filed: 04/20/2023 11:16 AM Note Text: POPULATION HEALTH NAVIGATION OUTREACH Action/ [facility] med adherence Outcome- lvm regarding reminder to refill medication lisinopril due in the [facility] portal. No mychart Will attempt callback Patient Identified by Name and : NO Outreach Outcome/Action Unable to reach patient: Left message Did you use a PCP flex slot to schedule this appointment? N/A Reason for Outreach Med Adherence Payer: Payor: JORGE LUIS NEWMAN / Plan: [employer] ACCESS / Product Type: PPO / Care Gap Reviewed:: N/A Reminder: Reminder note to check Health Maintenance for items below Health Maintenance items due: RSV Vaccine(1 - 1-dose 60+ series) Never done BP Controlled (<130/80) due on 08/09/2019 Annual PCP Team Chronic Disease Visit due on 04/19/2022 Advance Directive Discussion Never done Depression Assessment Never done Pneumococcal Vaccine: 65+(2 - PPSV23 or PCV20) due on 09/25/2022 Influenza Vaccine(1) due on 02/05/2023 Covid-19 Vaccine(3 - 2022-24 season) due on 02/05/2023 Navigation Signature: Luba Wilder Population Health Navigator April 20, 2023 11:14 AM [facility] 04-20-2023 History of Present illness Narrative POPULATION HEALTH NAVIGATION OUTREACH Action/ [facility] med adherence Outcome- lvm regarding reminder to refill medication lisinopril due in the [facility] portal. No mychart Will attempt callback Patient Identified by Name and : NO Outreach Outcome/Action Unable to reach patient: Left message Did you use a PCP flex slot to schedule this appointment? N/A Reason for Outreach Med Adherence Payer: Payor: JORGE LUIS NEWMAN / Plan: [employer]THEM [employer]LUE ACCESS / Product Type: PPO / Care Gap Reviewed:: N/A Reminder: Reminder note to check Health Maintenance for items below Health Maintenance items due: RSV Vaccine(1 - 1-dose 60+ series) Never done BP Controlled (<130/80) due on 08/09/2019 Annual PCP Team Chronic Disease Visit due on 04/19/2022 Advance Directive Discussion Never done Depression Assessment Never done Pneumococcal Vaccine: 65+(2 - PPSV23 or PCV20) due on 09/25/2022 Influenza Vaccine(1) due on 02/05/2023 Covid-19 Vaccine(3 - 2022- season) due on 02/05/2023 Navigation Signature: Luba Wilder Population Health Navigator April 20, 2023 11:14 AM documented in this encounter [facility] 01-12-2023 Note Patient Outreach (NE TNAV) YENI CAGE ([id number]) 1950 M Date Time Provider Department 01/12/23 RAGHAVENDRA SOOD ([facility]) [facility] During your visit today, we recorded the following information about you: Raghavendra Sood 01/12/2023 11:46 AM Signed POPULATION HEALTH NAVIGATION OUTREACH Action/ Past due for BP control, AD, wellness visit. LVM Patient Identified by Name and : NO Outreach Outcome/Action Unable to reach patient: Left message Did you use a PCP flex slot to schedule this appointment? N/A Reason for Outreach Care Gap or Scheduling/Wellness visits Payer: Payor: JORGE LUIS [facility] [facility] / Plan: JORGE LUIS [employer]IHUSEYIN ACCESS / Product Type: PPO / Care Gap Reviewed:: Annual Wellness visit Controlling Blood Pressure Reminder: Reminder note to check Health Maintenance for items below Health Maintenance items due: BP CONTROLLED (<130/80) due on 08/09/2019 COVID-19 VACCINE(3 - Booster for Abdi series) due on 06/19/2021 SHINGRIX VACCINE(2 of 2) due on 02/05/2022 ANNUAL PCP TEAM CHRONIC DISEASE VISIT due on 04/19/2022 ADVANCE DIRECTIVE DISCUSSION Never done DEPRESSION ASSESSMENT Never done PNEUMOCOCCAL: 65+(2 - PPSV23 or PCV20) due on 09/25/2022 Navigation Signature: Raghavendra Sood January 12, 2023 11:45 AM Allergies As of Date: 01/12/2023 (No Known Allergies) Date Reviewed: 05/12/2021 Reviewed by: Manjinder Woody Jr., MD - Fully Assessed Reason for Visit: Population Health Navigation Outreach [3910] Cmt: Jorge Luis care gap Prescriptions as of 01/12/2023 - lisinopril-hydroCHLOROthiazide (ZESTORETIC) 20-12.5 mg per tablet Take 1 tablet by mouth every morning. - CPAP Change Auto PAP setting to 5-12 cmH2O. Needs supplies (masks, tubing, filters). Lifetime supplies. [place] - CPAP Initiate Auto PAP @ 5-20 cm of water with humidification. Mask (per patient preference) optional chin strap (if indicated) , filters, tubing, humidifier and lifetime supplies. - omeprazole (PRILOSEC) 20 mg capsule Take 20 mg by mouth once daily. - MULTI-VITAMIN ORAL Take by mouth once daily. - aspirin(ECOTRIN LOW STRENGTH 81 MG TAB) Take one(1) tablet daily. Problem List As Of Date 01/12/2023 Noted Resolved ESOPHAGEAL REFLUX [K21.9] 04/07/2005 Hypertension [I10] 12/03/2009 Erectile dysfunction [N52.9] 12/03/2009 05/18/2014 Loss of weight [R63.4] 02/03/2010 12/15/2010 Esophagitis, unspecified [K20.90] 02/03/2010 01/13/2012 Special screening for malignant neoplasms, colo*02/03/2010 01/13/2012 Diverticulosis of colon (without mention of hem*02/03/2010 01/13/2012 Internal hemorrhoids without mention of complic*02/03/2010 01/13/2012 Impaired fasting glucose [R73.01] 07/14/2012 CAPO (obstructive sleep apnea) [G47.33] 04/19/2020 Encounter Status:Closed by RAGHAVENDRA SOOD on 01/12/23 [facility] 01-12-2023 Note HNO ID: [id number] Author: Raghavendra Sood Service: ? Author Type: ? Type: Progress Notes Filed: 01/12/2023 11:46 AM Note Text: POPULATION HEALTH NAVIGATION OUTREACH Action/FYI Past due for BP control, AD, wellness visit. LVM Patient Identified by Name and : NO Outreach Outcome/Action Unable to reach patient: Left message Did you use a PCP flex slot to schedule this appointment? N/A Reason for Outreach Care Gap or Scheduling/Wellness visits Payer: Payor: JORGE LUIS [employer] / Plan: [employer] ACCESS / Product Type: PPO / Care Gap Reviewed:: Annual Wellness visit Controlling Blood Pressure Reminder: Reminder note to check Health Maintenance for items below Health Maintenance items due: BP CONTROLLED (<130/80) due on 08/09/2019 COVID-19 VACCINE(3 - Booster for Abdi series) due on 06/19/2021 SHINGRIX VACCINE(2 of 2) due on 02/05/2022 ANNUAL PCP TEAM CHRONIC DISEASE VISIT due on 04/19/2022 ADVANCE DIRECTIVE DISCUSSION Never done DEPRESSION ASSESSMENT Never done PNEUMOCOCCAL: 65+(2 - PPSV23 or PCV20) due on 09/25/2022 Navigation Signature: Raghavendra Sood January 12, 2023 11:45 AM [facility] 10-28-2022 Note Patient Outreach (PH POHE) YENI CAGE ([id number]) 1950 M Date Time Provider Department 10/28/22 TRENT KRAMER [facility] During your visit today, we recorded the following information about you: Faina Fair 10/28/2022 2:38 PM Addendum Yeni Cage is identified through a medication adherence outreach initiative based on pharmacy claims data from [employer] (insurer) for RACHEL medication(s). Patient is reviewed 10/28/22 due to medication adherence concerns with the following medications (name, strength, sig): Lisinopril/Hctz 20-12.5mg every day . Per data/report, last fill date and days supply: Lisinopril/Hctz due 10/02 Per reconcile dispense, last fill date and days supply: 09/02/22 for 30 ds Per call to pharmacy, last picked up date and days supply: n/a Contacted patient: No answer; left generic VM Any need for new prescription (I.e. out of refills on most recent prescription) YES/NO/Active: yes Outcome of review/outreach: (choose outcome source and status) - Called pt and had to leave a VM Also sent a refill request to the doctor in a separate encounter Pt called back 10/28/22 and state he was seeing a new doctor tomorrow and have been feeling great without taking the medication. He said he will talk to the new doctor about the medication Faina Fair [employer] Allergies As of Date: 10/28/2022 (No Known Allergies) Date Reviewed: 05/12/2021 Reviewed by: Manjinder Woody Jr., MD - Fully Assessed Reason for Visit: Allied Health Visit [5] Cmt: Medication Adherence Outreach Prescriptions as of 10/28/2022 - lisinopril-hydroCHLOROthiazide (ZESTORETIC) 20-12.5 mg per tablet Take 1 tablet by mouth every morning. - CPAP Change Auto PAP setting to 5-12 cmH2O. Needs supplies (masks, tubing, filters). Lifetime supplies. [place] - CPAP Initiate Auto PAP @ 5-20 cm of water with humidification. Mask (per patient preference) optional chin strap (if indicated) , filters, tubing, humidifier and lifetime supplies. - omeprazole (PRILOSEC) 20 mg capsule Take 20 mg by mouth once daily. - MULTI-VITAMIN ORAL Take by mouth once daily. - aspirin(ECOTRIN LOW STRENGTH 81 MG TAB) Take one(1) tablet daily. Problem List As Of Date 10/28/2022 Noted Resolved ESOPHAGEAL REFLUX [K21.9] 04/07/2005 Hypertension [I10] 12/03/2009 Erectile dysfunction [N52.9] 12/03/2009 05/18/2014 Loss of weight [R63.4] 02/03/2010 12/15/2010 Esophagitis, unspecified [K20.90] 02/03/2010 01/13/2012 Special screening for malignant neoplasms, colo*02/03/2010 01/13/2012 Diverticulosis of colon (without mention of hem*02/03/2010 01/13/2012 Internal hemorrhoids without mention of complic*02/03/2010 01/13/2012 Impaired fasting glucose [R73.01] 07/14/2012 CAPO (obstructive sleep apnea) [G47.33] 04/19/2020 Encounter Status:Closed by FAINA FAIR on 10/28/22 [facility] 10-28-2022 Note HNO ID: [id number] Author: Faina Fair Service: ? Author Type: ? Type: Progress Notes Filed: 10/28/2022 2:38 PM Note Text: Yeni Cage is identified through a medication adherence outreach initiative based on pharmacy claims data from [employer] (insurer) for RACHEL medication(s). Patient is reviewed 10/28/22 due to medication adherence concerns with the following medications (name, strength, sig): Lisinopril/Hctz 20-12.5mg every day . Per data/report, last fill date and days supply: Lisinopril/Hctz due 10/02 Per reconcile dispense, last fill date and days supply: 09/02/22 for 30 ds Per call to pharmacy, last picked up date and days supply: n/a Contacted patient: No answer; left generic VM Any need for new prescription (I.e. out of refills on most recent prescription) YES/NO/Active: yes Outcome of review/outreach: (choose outcome source and status) - Called pt and had to leave a VM Also sent a refill request to the doctor in a separate encounter Pt called back 10/28/22 and state he was seeing a new doctor tomorrow and have been feeling great without taking the medication. He said he will talk to the new doctor about the medication Faina Fair [employer] [facility] 09-08-2022 Miscellaneous Notes Unable to reach letter mailed to patient. Left message to call & speak to nurse. Marry Luna LPN Left message to call & speak to nurse. Marry Luna LPN Left message to call office. 09/04/2022 2:30 PM ----- Message from Miryam Glover APRN.CNP sent at 09/04/2022 1:13 PM EDT ----- Labs were okay. Appointment 09/10 canceled, please reschedule Miryam Glover APRN.CNP documented in this encounter [facility] 09-02-2022 Miscellaneous Notes Patient notified, verbalized understanding. Momo Sorensen Ma Fasting labs ordered Miryam Glover APRN.CNP Patient scheduled for Annual Medicare Wellness, 09/10/2022. Please put in Lab orders. Marry Luna LPN documented in this encounter [facility] 09-02-2022 Miscellaneous Notes Patient has been identified by name and date of : Yes Patient phones for refill(s): Requested Prescriptions Pending Prescriptions Disp Refills lisinopril-hydroCHLOROthiazide (ZESTORETIC) 20-12.5 mg per tablet 30 tablet 11 Sig: Take 1 tablet by mouth every morning. Date of last office visit in primary care: 04/19/2021 Medicare Annual: 09/10/2022 Last 2 Encounter Wt Readings: Date: Wt: 05/12/2021 82.6 kg (182 lb) 04/19/2021 82.1 kg (181 lb) Previous labs/tests for medication: Blood Pressure: BUN (mg/dL) Date Value 06/15/2020 17 Sodium (mmol/L) Date Value 06/15/2020 137 Last 1 Encounter BP Readings: Date: BP: 05/12/2021 130/82 Please advise. Thank you. Marry Luna LPN Patient has been identified by name and date of : Yes Requested Prescriptions Pending Prescriptions Disp Refills lisinopril-hydroCHLOROthiazide (ZESTORETIC) 20-12.5 mg per tablet 30 tablet 11 Sig: Take 1 tablet by mouth every morning. RX INSTRUCTIONS: Patient aware RX will be sent to pharmacy. No need to notify patient. Kierra Lennon documented in this encounter [facility] 05-25-2022 History of Present illness Narrative Images from the original note were not included. Office Visit Note - 05/25/2022 Patient: YENI CAGE Attending Physician: Gera Youngblood MD CC: Chief Complaint Patient presents with Hearing Loss Cc: pt here for a follow up regarding surgery. Pt states he feels pressure at the surgery site at times and both ears feel full of wax. Informant: The history was obtained from the patient HPI: F/U visit for post-op after L tympanoplasty with ear cartilage reconstruction for history of cholesteatoma 03/05/22. Audiogram today shows improvement in hearing in high frequencies but residual low frequency CHL. Feels pressure in his ears. The past medical history, past surgical history, family history, social history, medications, allergies, and review of systems were reviewed today and are documented in IHIS &/or a scanned document completed by the patient (or guardian). Physical Exam: Pulse 79 Wt 83.3 kg (183 lb 9.6 oz) SpO2 99% BMI 28.76 kg/m Smoking Status Never Head and Face Inspection: Normocephalic and atraumatic without masses or lesions Palpation: No mastoid tenderness or fluctuance Salivary Glands: No masses or tenderness Facial Strength: Facial motility symmetric and full bilaterally Left- House-Brackman Grade 1/6 Right- House-Brackman Grade 1/6 Ear Periauricular Skin: Left - No lesions Right - No lesions Pinna: Left - External ear intact and fully developed Right - External ear intact and fully developed External canal: Left - Canal is patent with intact skin Right - Canal is patent with intact skin Tympanic Membranes: Left - Well healed Right - Clear and mobile Middle Ears: Left - CNE Right - Aerated, no effusion, no masses Medical Decision Making: Impression: Doing well s/p left Tympanoplasty Right SNHL Left mixed HL Plan: Discussed HAE RTC in 1 year Gera Youngblood MD Professor - Otology, Neurotology & Cranial Base Surgery Department of Otolaryngology-Head and Neck Surgery [address] [place] [address], [address] [place], [place] [id number] [place] [address] documented in this encounter [facility] 05-25-2022 History of Present illness Narrative Images from the original note were not included. Please see the scanned audiogram under the procedures tab in the chart review of IHIS. ICD-10-CM 1. Mixed hearing loss, bilateral H90.6 2. Tinnitus, left H93.12 documented in this encounter [facility] 03-24-2022 History of Present illness Narrative Images from the original note were not included. Postoperative Note History: Postoperative visit number 1 following Left Tympanoplasty with Ossicular chain reconstruction (2.5 mm Centered [place] Bianca PORP) on 03/05/22. INTRAOPERATIVE FINDINGS: 1. Transcanal approach 2. 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 3. Significant middle ear mucosal adhesions-lysed. 4. Prior silastic removed. 2.5mm Centered [place] Bianca PORP placed with cartilage cap 5. Perichondium harvested from tragal cartilage placed at posterior superior EAC to reinforce coverage of the tympanomeatal flap in that region. Pain: Well controlled Otorrhea: Minimal Hearing Improvement: No Other Symptoms: None Physical Exam: Incision: Clean, Dry, Previous post auricular incision well healed Pinna: Normal EAC/Meatus: Gelfoam and Dried Crust removed Tympanic Membrane: Graft intact Mobility: CNE Middle Ear: CNE Hearing: Moody: left Rinne: Left AC less than BC Right AC greater than BC Facial Nerve Function: Normal Impression: Doing well s/p Right Tympanoplasty Plan: Dry Ear Precautions Return to work next week, otherwise normal activity Return to Clinic 8 weeks with audiogram Gera Youngblood MD Professor - Otology, Neurotology & Cranial Base Surgery Department of Otolaryngology-Head and Neck Surgery [address] [place] [address] & [address] [place] [address] documented in this encounter [facility] 03-05-2022 Nurse Surgical operation note Summary: D/C Nursing Notes 1110 Discharge instructions and AVS given to patient and spouse. All questions answered. 1120 Pt ambulated to private vehicle with standby assistance. NO issues or concerns noted[facility] Note Summary: D/C Nursi ng Notes 1110 Discharge instructions and AVS given to patient and spouse. All questions answered. 1120 Pt ambulated to private vehicle with standby assistance. NO issues or concerns noted. documented in this encounter [facility] 03-05-2022 Hospital Discharge instructions Jun Fregoso MD - 03/05/2022 9:46 AM EDT Stapedectomy / Ossicular Reconstruction / Middle Ear Exploration Post Operative Instructions Gera Youngblood M.D. Otology / Neurotology / Skull Base Surgery [address] [place] [address], [address] [place] [address] Office [phone] Fax This instruction sheet is designed to help you care for your ear following surgery, and to answer many of the commonly asked questions. Please read the entire sheet carefully. Don t hesitate to call our office [phone] if you have a questions or concern. If the nurse cannot answer your questions, the doctor will return your call or you will be asked to come to the office. Leaving the Hospital Have family/friends drive home slowly to minimize dizziness. You will receive a prescription for pain medicine and sometimes an anti-nausea/dizziness medicine. You will not routinely receive a prescription for antibiotics. The cotton ball should be left in place for 8-12 hours unless saturated with blood. Thereafter, it should be changed a few times daily or as often as needed. Home Care-The First Few Days For the First 24 hours: Lie quietly with the head elevated. Do not bend over for 1 week after surgery. If you must bend, bend from the knees, not head first from the hips. This will prevent pressure build-up in the head. Until seen for your post-operative visit, do not participate in vigorous physical activity, including sport, even though you may feel well. Do not lift over 10 pounds. After 3 weeks you may resume all activities, including sports and physical exercise. It is normal for the ear to drain for a few days. The drainage can be blood-tinged or brown. The cotton ball can be changed several times daily as needed to absorb drainage. If the drainage become yellow, green, or has a foul smelling odor, call Dr. Youngblood s office. The ear canal will be filled with ointment or dissolvable packing, which should be left in place. Do not clean the ear canal with cotton swabs. The auricle (outer ear) can be wiped gently with a soft cloth or cotton swab to remove dried blood, but if the ear is tender this is not necessary. You may wash your hair 2 days after surgery. Keep all water out of the ear canal by using a cotton ball heavily coated with antibiotic ointment placed in the outermost part of the ear canal. If there is an incision behind the ear it will be covered with Steri-strips and these should be left in place. These will remain adherent for 10 days. No care is necessary, just keep them dry. Do not blow your nose for 2 weeks after surgery. Sniffing is okay. This is important should you develop a cold. After 2 weeks, you may blow your nose gently, one side at a time. Sneeze or cough with your mouth open for 2 weeks after surgery. You may fly 3 days following surgery. Whenever you fly, take an over the counter decongestant 30 minutes before take-off. Before the plane begins to descend, spray your nose with Neosynephrine or Afrin nasal spray. Chewing a piece of gum is also recommended. Use this procedure whenever you fly in the future. You may use the same treatment when traveling by car in a mountainous region. You may hear a variety of noises in your ear such as cracking and popping. This is part of the normal healing process. You may not be able to hear well from the operated ear for a few weeks. However, if you think you hear NOTHING, close your mouth and hum, which is a quick test to make sure that the inner ear is working and that the hearing loss is likely related to packing and/or fluid in the ear. If you cannot hear the hum in the operated ear, call the office. It is not uncommon to feel slightly dizzy or lightheaded. Home Care-After the First Few Days Any drainage from the ear should begin to decrease and pain should also subside. You may need to continue taking Ibuprofen or Tylenol for pain relief. There may be change in taste (usually described as metallic) on one side of the tongue and this usually improves within a few months. If you return for an office visit within 2 weeks, the Steri-strips will be removed in the office. If the appointment is later than this, you may remove the Steri-strips at home after 10 days. All stitches are under the skin and will not need to be removed. After the Steri-strips are removed, the incision should be cleaned gently with mild soap and water once or twice daily until no crusting is noted. A thin layer of antibiotic ointment (Neosporin, Polysporin, Bacitracin, etc.) is helpful for 7 days after removal of Steri-strips. Continue to keep all water out of the ear canal. First Follow-up Appointment Call the office for a follow-up appointment at the time recommended by Dr. Youngblood. Sometimes this appointment may be with your referring drop clipper, in which case, Dr. Youngblood will send a letter detailing your surgery and recommended follow-up care before you see the physician. Call office if: Increased pain not relieved by prescription medications. Large amounts of bleeding from the ear area. Pus/Foul smelling drainage from the ear. Redness in the ear area. Temperature over 100 on 2 consecutive readings. Severe dizziness. Important Phone Numbers [facility] [phone] Dr. Youngblood s office - [place] (follow-up appointments) [phone] Hospital Securities Attorney (after hours questions, ask for ENT resident senior clinical consultant) [facility] [phone] Securities Attorney (after hours questions, ask for ENT resident senior clinical consultant) [phone] Emergency Department (after hours emergency , only if no response from resident) documented in this encounter [facility] 03-05-2022 Note Formatting of this n ote might be different from the original. 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 Resected. 2.5mm centered alto bianca PORP with cartilage cap SURGEON Surgeon(s) and Role: * Gera Youngblood MD - Primary ANESTHESIOLOGIST Anesthesiologist: Manjinder Brito MD DIFFERENTIAL REPAIRER: Chelsey Rand APRN-JADE SURGICAL STAFF Loss Control Consultant: John Alexander RN Scrub Person: Jessee Shipley Assisting: Jun Fregoso MD Fellow: Virgie Galdamez MD COMPLICATIONS None ESTIMATED BLOOD LOSS Minimal SPECIMENS No specimen sent * No specimens in log * Jun Fregoso MD March 05[facility]22 9[facility] Miscellaneous Notes Yeni Cage ([id number]) PRE OPERATIVE DIAGNOSIS Mixed conductive and sensorineural hearing loss of left ear with restricted hearing of right ear [H90.A32] 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 Resected. 2.5mm centered alto bianca PORP with cartilage cap SURGEON Surgeon(s) and Role: * Gera Youngblood MD - Primary ANESTHESIOLOGIST Anesthesiologist: Manjinder Brito MD DIFFERENTIAL REPAIRER: Chelsey Rand APRN-DIFFERENTIAL REPAIRER SURGICAL STAFF Loss Control Consultant: John Alexander RN Scrub Person: Jessee Zambrano Resident Assisting: Jun Fregoso MD Fellow: Virgie Galdamez MD COMPLICATIONS None ESTIMATED BLOOD LOSS Minimal SPECIMENS No specimen sent * No specimens in log * Jun Fregoso MD March 05, 2022 9:44 AM documented in this encounter [facility] 03-05-2022 History and physical note DARI-OPERATIVE HISTORY AND PHYSICAL HPI: Presents for surgery. No changes to health since last office visit. Questions answered. Past Medical/Surgical History He has a past medical history of Acid reflux and Essential hypertension, benign. His has a past surgical history that includes tympanoplasy mastoidectomy intact or reconstructed canan (Left, 09/18/2021) and microsurgical techniques w/ operating microscope add-on px (Left, 09/18/2021). Past Family/Social History His family history is not on file. He reports that he has never smoked. He has never used smokeless tobacco. He reports previous alcohol use. He reports previous drug use. Medications/Allergies/Immunization s His current medication(s) include: has a current medication list which includes the following prescription(s): aspirin 81 MG Chew Tab chewable tablet, lisinopril-hydrochlorothiazide 20-12.5 MG per tablet, Omeprazole Magnesium (PRILOSEC OTC PO), Multiple Vitamin (MULTIVITAMINS PO), oxyCODONE 5 MG tablet, and Promethazine HCl 12.5 MG tablet, and the following Facility-Administered Medications: ceFAZolin (ANCEF) 2 g in dextrose 100 mL premix IVPB, lactated ringers IV solution, lidocaine 1% buffered in sodium bicarbonate 1-8.4 % injection SOSY 1 mL, and sodium chloride 0.9% IV solution. Allergies: Patient has no known allergies., Immunizations: Immunization History Administered Date(s) Administered COVID-19 vaccine, AD26, Abdi 0.5 ML 08/13/2020 Review of Systems Constitutional: Negative for fever, weight loss and weight gain. Psychiatric: The patient is not nervous/anxious. OBJECTIVE: Physical Exam General: Well-developed, well-nourished, no apparent distress Communication and Voice: Clear pitch and clarity Respiratory Respiratory effort: Equal inspiration and expiration without stridor Cardiovascular Heart: Regular rate and rhythm Peripheral Vascular: Warm extremities with equal pulses Head and Face Eyes: No nystagmus with equal extraocular motion bilaterally Inspection: Normocephalic and atraumatic without mass or lesion Facial Strength: Facial motility symmetric and full bilaterally ENT Pinna: External ear intact and fully developed bilaterally Hearing: nrmal clinical speech secretary receptionist threshold Neck Neck and Trachea: Midline trachea without mass or lesion Impression/Plan: Proceed to OR as planned [facility] 03-05-2022 History and physical note DARI-OPERATIVE HISTORY AND PHYSICAL HPI: Presents for surgery. No changes to health since last office visit. Questions answered. Past Medical/Surgical History He has a past medical history of Acid reflux and Essential hypertension, benign. His has a past surgical history that includes tympanoplasy mastoidectomy intact or reconstructed canan (Left, 09/18/2021) and microsurgical techniques w/ operating microscope add-on px (Left, 09/18/2021). Past Family/Social History His family history is not on file. He reports that he has never smoked. He has never used smokeless tobacco. He reports previous alcohol use. He reports previous drug use. Medications/Allergies/Immunization s His current medication(s) include: has a current medication list which includes the following prescription(s): aspirin 81 MG Chew Tab chewable tablet, lisinopril-hydrochlorothiazide 20-12.5 MG per tablet, Omeprazole Magnesium (PRILOSEC OTC PO), Multiple Vitamin (MULTIVITAMINS PO), oxyCODONE 5 MG tablet, and Promethazine HCl 12.5 MG tablet, and the following Facility-Administered Medications: ceFAZolin (ANCEF) 2 g in dextrose 100 mL premix IVPB, lactated ringers IV solution, lidocaine 1% buffered in sodium bicarbonate 1-8.4 % injection SOSY 1 mL, and sodium chloride 0.9% IV solution. Allergies: Patient has no known allergies., Immunizations: Immunization History Administered Date(s) Administered COVID-19 vaccine, AD26, Abdi 0.5 ML 08/13/2020 Review of Systems Constitutional: Negative for fever, weight loss and weight gain. Psychiatric: The patient is not nervous/anxious. OBJECTIVE: Physical Exam General: Well-developed, well-nourished, no apparent distress Communication and Voice: Clear pitch and clarity Respiratory Respiratory effort: Equal inspiration and expiration without stridor Cardiovascular Heart: Regular rate and rhythm Peripheral Vascular: Warm extremities with equal pulses Head and Face Eyes: No nystagmus with equal extraocular motion bilaterally Inspection: Normocephalic and atraumatic without mass or lesion Facial Strength: Facial motility symmetric and full bilaterally ENT Pinna: External ear intact and fully developed bilaterally Hearing: nrmal clinical speech secretary receptionist threshold Neck Neck and Trachea: Midline trachea without mass or lesion Impression/Plan: Proceed to OR as planned documented in this encounter [facility] 12-02-2021 History of Present illness Narrative Images from the original note were not included. Office Visit Note - 12/02/2021 Patient: YENI LIPSCOMBETLER Attending Physician: Gera Youngblood MD CC: Chief Complaint Patient presents with Cholesteatoma Cc: pt here for a 2 month follow up. Informant: The history was obtained from the patient HPI: F/U visit for left ICW tympanomastoidectomy without OCR on 09.18.21. Patient doing well overall. Hearing is stable since surgery. Planning on staged OCR. Denies otalgia, otorrhea, or signs of infection. Operative Findings: 1) epitypmanic retraction with epitympanic cholesteatoma extending into mesotympanum and facial recess. 2) eroded incus which was removed, as was malleus head and incus buttress 3) Mastoid was very sclerotic and not pneumatized 4) facial nerve identified and preserved 5) tensor tympani cut so temporalis fascia could be placed in an underlay fashion 6) conchal cartilage harvested for recreation of the scutum (placed on edge) 7) silastic implant to maintain the middle ear space pending staged ossicular reconstruction The past medical history, past surgical history, family history, social history, medications, allergies, and review of systems were reviewed today and are documented in [facility] &/or a scanned document completed by the patient (or guardian). Physical Exam: Pulse 65 Wt 80.8 kg (178 lb 3.2 oz) SpO2 (!) 84% BMI 27.91 kg/m Smoking Status Never Smoker Head and Face Inspection: Normocephalic and atraumatic without masses or lesions Palpation: No mastoid tenderness or fluctuance Salivary Glands: No masses or tenderness Facial Strength: Facial motility symmetric and full bilaterally Left- House-Brackman Grade 1/6 Right- House-Brackman Grade 1/6 Ear Periauricular Skin: Left - Well-healed postauricular incision No lesions Right - No lesions Pinna: Left - External ear intact and fully developed Right - External ear intact and fully developed External canal: Left - Canal is patent with intact skin. Mild amount of debris, removed Right - Canal is patent with intact skin Tympanic Membranes: Left - Graft well positioned. No obvious retraction. Right - Clear and mobile Middle Ears: Left - CNE Right - Aerated, no effusion, no masses Medical Decision Making: Data Reviewed: Audiogram: 1 Right - Normal, sloping to profound, sensorineural hearing loss Left - Moderate, sloping to profound, mixed hearing loss Impression: Left cholesteatoma s/p left ICW tympanomastoidectomy without OCR Asymmetric HL, L>R Plan: Recovering well s/p left ICW tympanomastoidectomy without OCR Needs OCR any time after March 07 Surgery order placed Gera Youngblood MD Professor - Otology, Neurotology & Cranial Base Surgery Department of Otolaryngology-Head and Neck Surgery [address] [place] [address], [address] [place] [address] documented in this encounter [facility] 12-02-2021 History of Present illness Narrative Images from the original note were not included. Please note that a copy of the audiogram is located in the procedure tab of patient's electronic medical record. ICD-10-CM 1. Sensorineural hearing loss (SNHL) of right ear with restricted hearing of left ear H90.A21 2. Mixed conductive and sensorineural hearing loss of left ear with restricted hearing of right ear H90.A32 Morris Oshea documented in this encounter [facility] 10-07-2021 History of Present illness Narrative Images from the original note were not included. Postoperative Note History: Postoperative visit number 1 following Left ICW tympanomastoidectomy without OCR on 09.18.21. Operative Findings: 1) epitypmanic retraction with epitympanic cholesteatoma extending into mesotympanum and facial recess. 2) eroded incus which was removed, as was malleus head and incus buttress 3) Mastoidectomy was very sclerotic and not pneumatized 4) facial nerve identified and preserved 5) tensor tympani cut so temporalis fascia could be placed in an underlay fashion 6) conchal cartilage harvested for recreation of the scutum (placed on edge) 7) silastic implant to maintain the middle ear space pending staged ossicular reconstruction Pain: Well controlled Otorrhea: No Hearing Improvement: No Other Symptoms: None Physical Exam: Incision: Clean, Dry, Non-infected and Steristrips removed previously Pinna: Normal EAC/Meatus: Gelfoam partially removed Tympanic Membrane: Intact, not epithelialized Middle Ear: CNE Facial Nerve Function: Normal Impression/Plan: Overall, I am very pleased with how he has been doing. I will start him on eardrops. I have provided a prescription and instructed the patient on proper usage. I recommended continued dry ear precautions. Activity can be increased but he should continue to avoid heavy lifting or strenuous activity. Follow up in 8 weeks with audiogram. Gera Youngblood MD Professor - Otology, Neurotology & Cranial Base Surgery Department of Otolaryngology-Head and Neck Surgery [address] [place] [address], [address] [place], [place] [id number] [place] [address] documented in this encounter [facility] 10-03-2021 Miscellaneous Notes Patient's called and notified that lab orders were placed. Clarisa Patino RN Ordered Miryam Glovre APRN.CNP Patient's calls and states that [place] and can not find he cannot records of his MMR vaccination. Patient's asking if provider can write an order to get those titers checked? Please review and advise, Clarisa Patino RN documented in this encounter [facility] 09-18-2021 Miscellaneous Notes 1305-Pt to 339, assessment completed, up to chair with call light in reach-BRITANY Reyna 1415-Discussed discharge instructions with patient and ; answered questions and concerns; verified pharmacy; removed IV-BRITANY Reyna 1432-Pt to front of via wheelchair to go home-BRITANY Reyna OTOLOGY/NEUROTOLOGY Operative Note Preoperative Diagnosis: 1) left COM/cholesteatoma 2) left MHL/CHL 3) ETD Postoperative Diagnosis: 1) left COM/cholesteatoma 2) left MHL/CHL 3) ETD Procedure Performed: 1) Left intact canal wall tympanomastoidectomy without ossicular reconstruction Teaching Surgeon: Gera Youngblood MD Resident Surgeon: Joe Carranza Assistants: Virgie Galdamez Anesthesia: General Specimens: none Implants: silastic Estimated Blood Loss: 20 mL Drains: none Complications: None Indications for Surgery: The patient is a very pleasant 71 y.o. male with a history of left COM with concern of cholesteatoma. They also had hearing loss that supported the diagnosis. We discussed management, including canal-wall up and canal-wall down procedures. They were taken to the OR for management. Operative Findings: 1) epitypmanic retraction with epitympanic cholesteatoma extending into mesotympanum and facial recess. 2) eroded incus which was removed, as was malleus head and incus buttress 3) Mastoidectomy was very sclerotic and not pneumatized 4) facial nerve identified and preserved 5) tensor tympani cut so temporalis fascia could be placed in an underlay fashion 6) conchal cartilage harvested for recreation of the scutum 7) silastic implant to maintain the middle ear space pending staged ossicular reconstruction Procedure Details: The patient was adequately identified in the pre-op holding area. Then, he was brought back to the operating suite and a time-out procedure was performed identifying the correct patient, surgical site, and procedure. Thereafter, general anesthesia was induced in a standard fashion. Once complete, the bed was rotated 180 degrees and the patient was prepped and draped. Facial nerve electrodes were placed for proper nerve monitoring. The site of the postauricular skin incision was injected with 1% lidocaine with epinephrine (1:100,000). Then, the ear canal was inspected demonstrating an epitympanic retraction with cholesteatoma debris. Ear canal injections were performed and a vascular strip was elevated. Then, the postauricular skin incision was performed and the subcutaneous soft tissues were dissected. Temporalis fascia was harvested and dried in the standard fashion. A Palva flap was elevated and the vascular strip was everted out of the external auditory canal. The middle ear was entered demonstrating epitympanic and mesotympanic cholesteatoma, completely enveloping the incus. The cholesteatoma was debulked from the canal and mastoid side. We then turned our attention to the mastoidectomy. A cortical mastoidectomy was performed. First, cutting burrs were used to identify the cortical limits of the mastoid. Specifically, the middle fossa plate and the sigmoid sinus were identified. Then, the bony posterior external auditory canal was thinned. Wilfrid's septum was encountered and the antrum was entered. The antrum was subsequently enlarged and the lateral semicircular canal identified and preserved. Of note, the mastoid was quite sclerotic. Dissection was also carried into the epitympanum to expose the cholesteatoma. The malleus head was removed to improve our exposure medial to the ossicles. The posterior bony canal wall was then further thinned. The facial recess was drilled using 3 and 2 mm mumtaz burrs and the incus buttress was removed. The mastoid segment of the facial nerve was identified and preserved. Special care was taken to leave an eggshell of bone over the Fallopian canal. The facial recess was progressively enlarged and the chorda tympani was taken as this was later cut in the middle ear. The middle ear mucous membranes were subsequently encountered and the recess was enlarged to allow visualization of the cholesteatoma. We then dissected the cholesteatoma from the canal and mastoid sides. The cholesteatoma was involved with the stapes suprastructure but we were able to dissect it off and keep it intact. There was an exposed facial nerve in the tympanic segment but this was protected. As mentioned, the incus and malleus head were removed. From the same incision, a portion of conchal cartilage was harvested. We utilized the cartilage pieces to reconstruct the scutum. The tensor tympani was cut. We then used gelfoam pieces to hold all of our reconstructed elements into place, from both a middle ear as well as mastoid approach. 0.4 mm silastic was used to recreate the middle ear space. Following this, we laid the previously harvested temporalis fascia graft in an underlay fashion to the [place] drum. After the middle ear was adequately packed, the graft and tympanomeatal flap were laid back down. The vascular strip was then laid back into its [place] position. We turned our attention to closure. The subperiosteal flaps were reapproximated using 3-0 polysorb. The skin was then reapproximated using 3-0 polysorb and steristrips. We then turned our attention back into the ear utilizing the operating microscope, to ensure that the vascular strip was in proper position. Antibiotic ointment was used to fill the remainder of the canal. An antibiotic ointment-coated cotton ball was placed in the conchal bowl and a mau dressing was applied. This concluded our procedure. The patient tolerated the procedure well without any apparent immediate post operative complications. All counts were correct x2. The patient was gently awakened from general anesthesia and taken to the PACU in stable condition. Dr. Youngblood was present and participated through the entirety of the procedure. documented in this encounter [facility] 09-18-2021 Note Formatting of this n ote might be different from the original. 1305-Pt to [facility], assessment completed, up to chair with call light in reach-BRITANY eRyna 1415-Discussed discharge instructions with patient and ; answered questions and concerns; verified pharmacy; removed IV-BRITANY Reyna 1434-Pt to front [facility] via wheelchair to go home-BRITANY Reyna [facility] 09-18-2021 Nurse Surgical operation note Report called to BRITANY Walsh. Pt to be transported to [facility] for preparation to be discharged to home. VSS. [facility] 04-14-2022 Nurse Note Report called to BRITANY Walsh. Pt to be transported to [facility] for preparation to be discharged to home. VSS. documented in this encounter [facility] 09-18-2021 Note Formatting of this n ote might be different from the original. OTOLOGY/NEUROTOLOGY Operative Note Preoperative Diagnosis: 1) left COM/cholesteatoma 2) left MHL/CHL 3) ETD Postoperative Diagnosis: 1) left COM/cholesteatoma 2) left MHL/CHL 3) ETD Procedure Performed: 1) Left intact canal wall tympanomastoidectomy without ossicular reconstruction Teaching Surgeon: Gera Youngblood MD Resident Surgeon: Joe Carranza Assistants: Virgie Galdamez Anesthesia: General Specimens: none Implants: silastic Estimated Blood Loss: 20 mL Drains: none Complications: None Indications for Surgery: The patient is a very pleasant 71 y.o. male with a history of left COM with concern of cholesteatoma. They also had hearing loss that supported the diagnosis. We discussed management, including canal-wall up and canal-wall down procedures. They were taken to the OR for management. Operative Findings: 1) epitypmanic retraction with epitympanic cholesteatoma extending into mesotympanum and facial recess. 2) eroded incus which was removed, as was malleus head and incus buttress 3) Mastoidectomy was very sclerotic and not pneumatized 4) facial nerve identified and preserved 5) tensor tympani cut so temporalis fascia could be placed in an underlay fashion 6) conchal cartilage harvested for recreation of the scutum 7) silastic implant to maintain the middle ear space pending staged ossicular reconstruction Procedure Details: The patient was adequately identified in the pre-op holding area. Then, he was brought back to the operating suite and a time-out procedure was performed identifying the correct patient, surgical site, and procedure. Thereafter, general anesthesia was induced in a standard fashion. Once complete, the bed was rotated 180 degrees and the patient was prepped and draped. Facial nerve electrodes were placed for proper nerve monitoring. The site of the postauricular skin incision was injected with 1% lidocaine with epinephrine (1:100,000). Then, the ear canal was inspected demonstrating an epitympanic retraction with cholesteatoma debris. Ear canal injections were performed and a vascular strip was elevated. Then, the postauricular skin incision was performed and the subcutaneous soft tissues were dissected. Temporalis fascia was harvested and dried in the standard fashion. A Palva flap was elevated and the vascular strip was everted out of the external auditory canal. The middle ear was entered demonstrating epitympanic and mesotympanic cholesteatoma, completely enveloping the incus. The cholesteatoma was debulked from the canal and mastoid side. We then turned our attention to the mastoidectomy. A cortical mastoidectomy was performed. First, cutting burrs were used to identify the cortical limits of the mastoid. Specifically, the middle fossa plate and the sigmoid sinus were identified. Then, the bony posterior external auditory canal was thinned. Wilfrid's septum was encountered and the antrum was entered. The antrum was subsequently enlarged and the lateral semicircular canal identified and preserved. Of note, the mastoid was quite sclerotic. Dissection was also carried into the epitympanum to expose the cholesteatoma. The malleus head was removed to improve our exposure medial to the ossicles. The posterior bony canal wall was then further thinned. The facial recess was drilled using 3 and 2 mm mumtaz burrs and the incus buttress was removed. The mastoid segment of the facial nerve was identified and preserved. Special care was taken to leave an eggshell of bone over the Fallopian canal. The facial recess was progressively enlarged and the chorda tympani was taken as this was later cut in the middle ear. The middle ear mucous membranes were subsequently encountered and the recess was enlarged to allow visualization of the cholesteatoma. We then dissected the cholesteatoma from the canal and mastoid sides. The cholesteatoma was involved with the stapes suprastructure but we were able to dissect it off and keep it intact. There was an exposed facial nerve in the tympanic segment but this was protected. As mentioned, the incus and malleus head were removed. From the same incision, a portion of conchal cartilage was harvested. We utilized the cartilage pieces to reconstruct the scutum. The tensor tympani was cut. We then used gelfoam pieces to hold all of our reconstructed elements into place, from both a middle ear as well as mastoid approach. 0.4 mm silastic was used to recreate the middle ear space. Following this, we laid the previously harvested temporalis fascia graft in an underlay fashion to the cow [place] drum. After the middle ear was adequately packed, the graft and tympanomeatal flap were laid back down. The vascular strip was then laid back into its [place] position. We turned our attention to closure. The subperiosteal flaps were reapproximated using 3-0 polysorb. The skin was then reapproximated using 3-0 polysorb and steristrips. We then turned our attention back into the ear utilizing the operating microscope, to ensure that the vascular strip was in proper position. Antibiotic ointment was used to fill the remainder of the canal. An antibiotic ointment-coated cotton ball was placed in the conchal bowl and a mau dressing was applied. This concluded our procedure. The patient tolerated the procedure well without any apparent immediate post operative complications. All counts were correct x2. The patient was gently awakened from general anesthesia and taken to the PACU in stable condition. Dr. Youngblood was present and participated through the entirety of the procedure. [facility] Work Phone: 09-18-2021 Hospital Discharge instructions Joe Carranza MD - 09/18/2021 8:40 AM EDT CHRONIC EAR SURGERY (TYMPANOPLASTY / MASTOIDECTOMY) Post Operative Instructions Gera Youngblood M.D. Otology / Neurotology / Skull Base Surgery [address] [place] [address], [address] [place] [address] Office [phone] Fax This instruction sheet is designed to help you care for your ear following surgery, and to answer many of the commonly asked questions. Please read the entire sheet carefully. Don t hesitate to call our office [phone] if you have a questions or concern. If the nurse cannot answer your questions, the doctor will return your call or you will be asked to come to the office. Leaving the Hospital You will receive a prescription for pain medicine and sometimes an anti-nausea medicine. You will not routinely receive an antibiotic because there are antibiotics in the ear canal. The bandage should be removed the day following surgery. If a stay over night is needed, this may be done before you leave the hospital, but it is preferable to leave the bandage in place for the ride home. Home Care-The First Few Days First 24 hours after surgery: Remove all gauze from around the ear, including the telfa (shiny thin gauze) covering the incision Remove the cotton ball from the outermost part of the ear canal. Replace cotton ball several times daily as needed to absorb the drainage. It is normal to see blood-tinged or brown drainage from the ear for several days. If the drainage becomes yellow, green, or has a foul smelling odor, please call the office. The ear canal will be filled with dissolvable packing, which should be left in place. With some procedures a half inch gauze roll is placed in the outer ear canal and should also be left in place. Do not clean the ear canal with cotton swabs. Clean the outer ear with a soft cloth or cotton swabs to remove dried blood, but if the ear is tender this is not necessary. You may was your hair 2 days after surgery but keep all water out of the ear canal. Use a cotton ball coated heavily with antibiotic ointment and place it in the outermost part of the ear canal. If there is an incision behind the ear it will be covered with Steri-strips and these should be left in place. These will remain adherent for 10-12 days. No care is necessary, just keep them dry. Do not bend over for 1 week after surgery. If you must bend, bend from the knees, not head-first from the hips. This will prevent pressure build-up in the head. Do not blow your nose for 2 weeks after surgery. Sniffing is okay. After 2 weeks you may blow your nose gently, one side at a time. Sneeze or cough with your mouth open during the first week following surgery. You may fly 3 days following surgery. Whenever you fly, take an over the counter decongestant 30 minutes before take-off. Before the plane begins to descend, spray your nose with Neosynephrine or Afrin nasal spray. Chewing a piece of gum is also recommended. Use this procedure whenever you fly in the future. You may use the same treatment when traveling by car in mountainous region. No vigorous physical activity, including sports, until seen for your post-operative visit. With exception of these restrictions, you may return to work or school as overall condition permits. After 3 weeks you may resume all activities, including sports and physical exercise. You may hear a variety of noises in your ear such as cracking or popping. This is part of the normal healing process. Dizziness or lightheadedness is normal for up to 1 week after surgery. Home Care- After the First Few Days Drainage should begin to decrease and pain should also subside. Please continue taking Ibuprofen or Tylenol for relief of pain. It is normal for the top of the ear to feel numb and this will take several months to return to normal. There may be change in taste (usually described as metallic) on one side of the tongue and this usually improves within several months. If you return for an office visit within 2 weeks, the Steri-strips will be removed in the office. If the appointment is later than this, you may remove the Steri-strips at home after 10 days. All stitches are under the skin and will not need to be removed. After the Steri-strips are removed, the incision should be cleaned gently with mild soap and water once or twice daily until no crusting is noted. A thin layer of antibiotic ointment (Neosporin, Polysporin, Bacitracin, etc.) is helpful for 7 days after removal of Steri-strips. Continue to keep all water out of the ear canal. First Follow-up Appointment Call the office for a follow-up appointment at the time recommended by Dr. Youngblood. Sometimes this appointment may be with your referring drop clipper, in which case, Dr. Youngblood will send a letter detailing your surgery and recommended follow-up care before you see the physician. Call office if: Increased pain not relieved by prescription medications. Large amounts of bleeding from the ear area. Pus/Foul smelling drainage from the ear. Redness in the ear area. Temperature over 100 on 2 consecutive readings. Severe dizziness. Important Phone Numbers [facility] [phone] Dr. Youngblood s office - [place] (follow-up appointments) [phone] Hospital Securities Attorney (after hours questions, ask for ENT resident senior clinical consultant) [facility] [phone] Securities Attorney (after hours questions, ask for ENT resident senior clinical consultant) [phone] Emergency Department (after hours emergency , only if no response from resident) documented in this encounter [facility] 09-18-2021 History and physical note PERIOPERATIVE SURGICAL HISTORY AND PHYSICAL UPDATE Pre-op Diagnoses: Cholesteatoma, left [H71.92] Procedure(s): TYMPANOPLASY MASTOIDECTOMY INTACT OR RECONSTRUCTED CANAL WALL WITH PSB OSSICULAR CHAIN RECONSTRUCTION MICROSURGICAL TECHNIQUES W/ OPERATING MICROSCOPE ADD-ON PX Surgeon(s): Surgeon(s) and Role: * Gera Youngblood MD - Primary History and Physical Update: There were no vitals taken for this visit. I have reviewed Yeni Cage's medical, surgical and other pertinent history, and I have updated the medication and allergy information in the computerized patient record. I have examined the patient, reviewed the previous H&P completed on date (09/16/21) and there are no changes. Today's surgical history and physical update was completed by Joe Carranza MD, 09/18/2021, 6:[address] [facility] 09-18-2021 History and physical note PERIOPERATIVE SURGICAL HISTORY AND PHYSICAL UPDATE Pre-op Diagnoses: Cholesteatoma, left [H71.92] Procedure(s): TYMPANOPLASY MASTOIDECTOMY INTACT OR RECONSTRUCTED CANAL WALL WITH PSB OSSICULAR CHAIN RECONSTRUCTION MICROSURGICAL TECHNIQUES W/ OPERATING MICROSCOPE ADD-ON PX Surgeon(s): Surgeon(s) and Role: * Gera Youngblood MD - Primary History and Physical Update: There were no vitals taken for this visit. I have reviewed Yeni Niles's medical, surgical and other pertinent history, and I have updated the medication and allergy information in the computerized patient record. I have examined the patient, reviewed the previous H&P completed on date (09/16/21) and there are no changes. Today's surgical history and physical update was completed by Joe Carranza MD, 09/18/2021, 6:54 AM. documented in this encounter [facility] 09-16-2021 History of Present illness Narrative Review of Systems Constitutional: Negative for fever. HENT: Positive for hearing loss (L ear.) and tinnitus (L ear.). Negative for congestion, dental problem, drooling, ear discharge, ear pain, facial swelling, mouth sores, nosebleeds, postnasal drip, rhinorrhea, sinus pressure, sinus pain, sneezing, sore throat, trouble swallowing and voice change. Eyes: Negative for pain. Respiratory: Negative for cough, choking, shortness of breath, wheezing and stridor. Cardiovascular: Negative for chest pain. Gastrointestinal: Negative for nausea. Genitourinary: Negative for flank pain. Musculoskeletal: Negative for back pain and neck pain. Skin: Negative for color change and rash. Allergic/Immunologic: Negative for environmental allergies. Neurological: Negative for dizziness and headaches. Hematological: Does not bruise/bleed easily. Note: Images from the original note were not included. Office Visit Note - 09/16/2021 Patient: YENI CAGE Attending Physician: Gera Youngblood MD CC: Chief Complaint Patient presents with Cholesteatoma Cc: pt here regarding cholesteatoma of the left ear. Pt states symptoms include tinnitus in the left ear and pressure. Informant: The history was obtained from the patient. HPI: Mr. Yeni Cage is a 71 y.o. male presenting for evaluation of left cholesteatoma. Developed unilateral high pitched tinnitus ~8 months ago and had audiogram which demonstrated asymmetric L sided HL. Saw [facility] who saw a cholesteatoma in left ear and referred to [facility]. No hx of chronic ear disease, no otorrhea, otalgia, or dizziness. Has hx of loud noise exposure through his job. No family hx of hearing loss, loud noise exposure, head trauma, or previous head and neck surgeries. Takes ASA81 due to family hx of DE but no personal cardiac hx. The past medical history, past surgical history, family history, social history, medications, allergies, and review of systems were reviewed today and are documented in IHIS &/or a scanned document completed by the patient (or guardian). Physical Exam: Pulse 69 Ht 1.702 m (5' 7) Wt 81.1 kg (178 lb 12.8 oz) SpO2 96% BMI 28.00 kg/m Smoking Status Never Smoker Head and Face Inspection: Normocephalic and atraumatic without masses or lesions Palpation: No mastoid tenderness or fluctuance Salivary Glands: No masses or tenderness Facial Strength: Facial motility symmetric and full bilaterally Left- House-Brackman Grade 1/6 Right- House-Brackman Grade 1/6 Ear Periauricular Skin: Left - No previous surgical incisions No lesions Right - No previous surgical incisions No lesions Pinna: Left - External ear intact and fully developed Right - External ear intact and fully developed External canal: Left - Mildly stenotic, crusts and moist debris removed, skin healthy appearing Right - Canal is patent with intact skin Tympanic Membranes: Left - Epitympanic retraction with cholesteatoma debris and drainage Right - Clear and mobile Middle Ears: Left - CNE Right - Aerated, no effusion, no masses Due to patient's complaints, it was medically necessary to perform otologic examination using binocular microscopy. Procedure Note: Preoperative diagnosis: Need for Otologic Binocular Microscopy Postoperative diagnosis: Same Procedure: Left Otologic Binocular Microscopy Surgeon: Ford Anesthesia: None Indications and Consent: The patient is a 71 y.o. male who presents for left otologic binocular microscopy. Prior to the procedure, the benefits and risks of otologic microscopy were discussed with the patient (and/or the consenting guardian), including but not limited to bleeding, infection, injury to skin of the ear canal, and the need for further procedure(s). The patient (guardian) understood and wished to proceed. Procedure/Findings: The left external auditory canal was visualized using the operating microscope. Findings are as documented in the physical exam portion of this note. EBL: None Complications: None Medical Decision Making: Data Reviewed: Outside Records: Robin, Mario Pa Independent Interpretation of Tests: Audiogram Interpretation: Right - Mild, sloping to moderate, sloping to profound, sensorineural hearing loss Left - Profound, sloping to severe, sloping to profound, mixed hearing loss, largely conductive Surgical/Management Risk Factors: Hypertension Impression: Asymmetric HL, L>R Left cholesteatoma Left atticoantral chronic suppurative OM Plan: Mr. Cage's history, physical examination, and audiogram are most consistent with a diagnosis of left cholesteatoma/chronic OM. I had a discussion with the patient today regarding the natural history of the disease. The pathogenesis was explained in common language. Specifically, the role of eustachian tube dysfunction was detailed and the fact that the functional aspects of this underlying problem will determine the future course of the disease, even with treatment. We talked about all management options. Non-surgical management via frequent debridements was explained. Also, the motivations for surgical management were explained and the destructive character of the disease was emphasized. We discussed the various surgical techniques and the significance of the posterior bony canal wall. Canal wall up and down techniques with the potential of a meatoplasty were reviewed. Staged surgical management algorithms were also discussed and the role of a second look procedure with possible delayed ossicular chain reconstruction was reviewed. Also, we talked about the present hearing status and the fact that the presence of a cholesteatoma can actually improve sound conduction in some cases. However, since the disease needs to be removed, it is expected that the hearing in the operated ear may decrease, at least in the short run. Mr. Cage indicates an understanding of the above and wishes to pursue surgery as indicated. All questions were answered. I discussed the risks of ear surgery with this patient today including, but not limited to bleeding, infection, scars/cosmetic deformities, recurrent or persistent tympanic membrane perforation, injury to middle ear structures, persistent conductive hearing loss, worsened (perhaps profoundly worsened) sensorineural hearing loss and/or balance, taste abnormalities, facial nerve injury, the risks of anesthesia/operative positioning, and/or the need for additional surgery. Will proceed with scheduling of left Tympanomastoidectomy with Possible Ossicular Reconstruction. Floxin drops (prescribed) and surgery able to be scheduled for 09/18 due to a cancellation. Dry ear precautions. Gera Youngblood MD Professor - Otology, Neurotology & Cranial Base Surgery Department of Otolaryngology-Head and Neck Surgery [address] [place] [address], [address] [place], [place] [id number] [place] [address] documented in this encounter [facility] 09-16-2021 History of Present illness Narrative Images from the original note were not included. ICD-10-CM 1. 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 Sensorineural hearing loss, unilateral H90.5 3. 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 09-02-2021 Miscellaneous Notes HARISH: 04/19/2021 Last refill: 08/21/2020 QTY: 30 Refills: 11 Patient's request for medication is as follows: Pending Prescriptions Disp Refills LISINOPRIL 20 MG-HYDROCHLOROTHIAZIDE 12.5 MG TABLET 30 tablet 11 Sig: Take 1 tablet by mouth every morning. KWASI: No Please approve the above prescription(s) to electronically send to pharmacy. Momo Sorensen Ma documented in this encounter [facility] 02-03-2010 History of Past i llness Narrative Problem Noted Date Resolved Date Loss of weight 02/03/2010 12/15/2010 Last Assessment & Plan: Resolved following tx for esophageal ulcerations with PPI. Has regained weight. Esophagitis, unspecified 02/03/2010 012 Special screening for malignant neoplasms, colon 02/03/2010 01/13/2012 Diverticulosis of colon (without mention of hemo rrhage) 02/03/2010 01/13/2012 Internal hemorrhoids without mention of complica tion 02/03/2010 01/13/2012 Erectile dysfunction 12/03/2009 05/18/2014 documented as of this encounter (statuses as of 09/02/2021) [facility] History of Past illness Narrative* Problem Noted Date Resolved Date Loss of weight 02/03/2010 12/15/2010 Last Assessment & Plan: Resolved following tx for esophageal ulcerations with PPI. Has regained weight. Esophagitis, unspecified 02/03/2010 012 Special screening for malignant neoplasms, colon 02/03/2010 01/13/2012 Diverticulosis of colon (without mention of hemo rrhage) 02/03/2010 01/13/2012 Internal hemorrhoids without mention of complica tion 02/03/2010 01/13/2012 Erectile dysfunction 12/03/2009 05/18/2014 documented as of this encounter (statuses as of 10/03/2021) [facility] History of Past illness Narrative* Problem Noted Date Resolved Date Loss of weight 02/03/2010 12/15/2010 Last Assessment & Plan: Resolved following tx for esophageal ulcerations with PPI. Has regained weight. Esophagitis, unspecified 02/03/2010 012 Special screening for malignant neoplasms, colon 02/03/2010 01/13/2012 Diverticulosis of colon (without mention of hemo rrhage) 02/03/2010 01/13/2012 Internal hemorrhoids without mention of complica tion 02/03/2010 01/13/2012 Erectile dysfunction 12/03/2009 05/18/2014 documented as of this encounter (statuses as of 09/02/2022) [facility] History of Past illness Narrative* Problem Noted Date Resolved Date Loss of weight 02/03/2010 12/15/2010 Last Assessment & Plan: Resolved following tx for esophageal ulcerations with PPI. Has regained weight. Esophagitis, unspecified 02/03/2010 012 Special screening for malignant neoplasms, colon 02/03/2010 01/13/2012 Diverticulosis of colon (without mention of hemo rrhage) 02/03/2010 01/13/2012 Internal hemorrhoids without mention of complica tion 02/03/2010 01/13/2012 Erectile dysfunction 12/03/2009 05/18/2014 documented as of this encounter (statuses as of 09/02/2022) [facility] History of Past illness Narrative* Problem Noted Date Resolved Date Loss of weight 02/03/2010 12/15/2010 Last Assessment & Plan: Resolved following tx for esophageal ulcerations with PPI. Has regained weight. Esophagitis, unspecified 02/03/2010 012 Special screening for malignant neoplasms, colon 02/03/2010 01/13/2012 Diverticulosis of colon (without mention of hemo rrhage) 02/03/2010 01/13/2012 Internal hemorrhoids without mention of complica tion 02/03/2010 01/13/2012 Erectile dysfunction 12/03/2009 05/18/2014 documented as of this encounter (statuses as of 09/09/2022) [facility] History of Past illness Narrative* Problem Noted Date Diagnosed Date Resolved Date Loss of weight 02/03/2010 12/15/2010 Last Assessment & Plan: Resolved following tx for esophageal ulcerations with PPI. Has regained weight. Esophagitis, unspecified 02/03/201001/2012 Special screening for malign ant neoplasms, colon 02/03/2010 01/13/2012 Diverticulosis of colon (wit hout mention of hemorrhage) 02/03/2010 01/13/2012 Internal hemorrhoids without mention of complication 02/03/2010 01/13/2012 Erectile dysfunction 12/03/2009 014 documented as of this encounter (statuses as of 04/20/2023) [facility] Mixed hearing loss, unilateral- Primary Sensorineural hearing loss, unilateral Cholesteatoma of attic of ear, left Cholesteatoma, left [facility] Cholesteatoma, left- Primary Chronic atticoantral suppurative otitis media of left ear Chronic atticoantral suppurative otitis media Mixed conductive and sensorineural hearing loss of left ear with restricted hearing of right ear Cholesteatoma, left [facility] Cholesteatoma, left- Primary [facility] Diagnosis Immunity status testing- Primary Antibody response examination [facility] Diagnosis Cholesteatoma, left- Primary Chronic atticoantral suppurative otitis media of left ear Chronic atticoantral suppurative otitis media Mixed conductive and sensorineural hearing loss of left ear with restricted hearing of right ear [facility] Diagnosis Sensorineural hearing loss (SNHL) of right ear with restricted hearing of left ear- Primary Mixed conductive and sensorineural hearing loss of left ear with restricted hearing of right ear [facility] Diagnosis Mixed conductive and sensorineural hearing loss of left ear with restricted hearing of right ear- Primary Partial necrosis of left ear ossicles [facility] Diagnosis Mixed conductive and sensorineural hearing loss of left ear with restricted hearing of right ear- Primary [facility] Diagnosis 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 Mixed conductive and sensorineural hearing loss of left ear with restricted hearing of right ear [facility] Diagnosis Cholesteatoma, left- Primary 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 [facility] Diagnosis Mixed hearing loss, bilateral- Primary Tinnitus, left Unspecified tinnitus [facility] Diagnosis Primary hypertension- Primary Unspecified essential hypertension Impaired fasting glucose Screening for prostate cancer Special screening for malignant neoplasm of prostate [facility]No assessment information [facility] Work Phone: Evaluation note* Diagnosis Tinnitus, left- Primary Unspecified tinnitus Sensorineural hearing loss (SNHL) of right ear with restricted hearing of left ear Mixed conductive and sensorineural hearing loss of left ear with restricted hearing of right ear [facility] Impacted cerumen of right ear- Primary Impacted cerumen 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 Retraction of tympanic membrane of left ear [facility] Auth/Cert Specialty Diagnoses / Procedures Referred By Jesika jo Referred To Contact Diagnoses Cholesteatoma, left Cholesteatoma, left [H71.92] Procedures OR TYMPANOPLAS/MASTOID,INTCT WALL,REBLD OR MICROSURG TECHNIQUES,REQ OPER MICROSCOPE TYMPANOPLASY MASTOIDECTOMY INTACT OR RECONSTRUCTED CANAL WALL WITH OSSICULAR CHAIN RECONSTRUCTION MICROSURGICAL TECHNIQUES W/ OPERATING MICROSCOPE ADD-ON PX Referral ID Status Reason Start Date Expiration Date Visits Re quested Visits Authorized [id number] [address] 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 Summary Purpose Family History No Family History Records FoundNo Family History Records FoundNo Family History Records FoundNo Family History Records Found Advance Directives No Advanced Directives Records FoundDocuments on File Type Date Recorded Patient Medical Coding Technician Expl anation Advance Directive(s) 09/02/2020 12:50 PM Advance Directive(s) 07/31/2020 4:17 PM Latest Code Status on File Code Status Date Activated Date Inactivated Comments Full Code 09/18/2021 6:49 AM Latest Code Status on File Code Status Date Activated Date Inactivated Comments Full Code 09/18/2021 6:49 AM Latest Code Status on File Code Status Date Activated Date Inactivated Comments Full Code 03/05/2022 7:08 AM Full Code 09/18/2021 6:49 AM 03/05/2022 7:08 AM Latest Code Status on File Code Status Date Activated Date Inactivated Comments Full Code 03/05/2022 7:08 AM Code Status History Code Status Date Activated Date Inactivated Comments Full Code 09/18/2021 6:49 AM 03/05/2022 7:08 AM Reason for Referral Specialty Diagnoses / Procedures Referred By Contac t Referred To Contact Diagnoses Cholesteatoma, left Procedures CT TEMPORAL BONES WITHOUT CONTRAST OR CT SCAN,ORBIT/SELLA/POST FOSSA/EAR,W/O Gera Youngblood MD [address] [place], [place] [phone] Referral ID Status Reason Start Date Expiration Date V isits Requested Visits Authorized [id number] New Request 09/16/2021 10/11/2022 1 1 Specialty Diagnoses / Procedures Referred By Contac t Referred To Contact Procedures NO MECHANICAL DVT PROPHYLAXIS Gera Youngblood MD [address] [place], [place] [phone] Referral ID Status Reason Start Date Expiration Date V isits Requested Visits Authorized [id number] New Request 09/18/2021 10/13/2022 1 1 Specialty Diagnoses / Procedures Referred By Contac t Referred To Contact Procedures LOW RISK - NO PHARMACOLOGICAL DVT PROPHYLAXIS Gera Youngblood MD [address] [place], [place] [phone] Referral ID Status Reason Start Date Expiration Date V isits Requested Visits Authorized [id number] New Request 09/18/2021 10/13/2022 1 1 Specialty Diagnoses / Procedures Referred By Contac t Referred To Contact Procedures DVT/VTE RISK ASSESSMENT Gera Youngblood MD [address] [place] [phone] Referral ID Status Reason Start Date Expiration Date V isits Requested Visits Authorized [id number] New Request 09/18/2021 10/13/2022 1 1 Chief Complaint and Reason for Visit Chief Complaint PREOP, RT KNEE *MICHELLE * PREOP Additional Source Comments (unrecognized sect ion and content) No Status Records FoundNo Status Records FoundNo Status Records FoundNo Status Records Found INFORMATION SOURCE (unrecogn ized section and content) DATE CREATED AUTHOR 08/21/2020 [facility] DATE CREATED AUTHOR AUTHOR'S ORGANIZ ATION 04/21/2023 [facility] DATE CREATED AUTHOR AUTHOR'S ORGANIZ ATION 05/20/2023 [facility] DATE CREATED AUTHOR AUTHOR'S ORGANIZ ATION 02/12/2024 [facility] Source Comments (unrecognize d section and content) In the event this informatio n is protected by the Federal Confidentiality of Alcohol and Drug Abuse Patient Records regulations: The Federal rules restrict any use of the information to criminally investigate or prosecute any alcohol or drug abuse patient.[facility] the event this information is protected by the Federal Confidentiality of Alcohol and Drug Abuse Patient Records regulations: The Federal rules restrict any use of the information to criminally investigate or prosecute any alcohol or drug abuse patient.[facility] the event this information is protected by the Federal Confidentiality of Alcohol and Drug Abuse Patient Records regulations: The Federal rules restrict any use of the information to criminally investigate or prosecute any alcohol or drug abuse patient.[facility] the event this information is protected by the Federal Confidentiality of Alcohol and Drug Abuse Patient Records regulations: The Federal rules restrict any use of the information to criminally investigate or prosecute any alcohol or drug abuse patient.[facility] the event this information is protected by the Federal Confidentiality of Alcohol and Drug Abuse Patient Records regulations: The Federal rules restrict any use of the information to criminally investigate or prosecute any alcohol or drug abuse patient.[facility] the event this information is protected by the Federal Confidentiality of Alcohol and Drug Abuse Patient Records regulations: The Federal rules restrict any use of the information to criminally investigate or prosecute any alcohol or drug abuse patient.[facility] Reason for Visit (unrecogniz ed section and content) Reason Comments Prescription Refills Reason Comments Hearing Problem Specialty Diagnoses / Procedures Referred By Jesika t Referred To Contact Otolaryngology Diagnoses Cholesteatoma of attic of ear, left Mario Miles MD [address] [place] [address] Gera Youngblood MD [address] [place] [address] Referral ID Status Reason Start Date Expiration Date V isits Requested Visits Authorized [id number] New Request 06/09/2021 07/04/2022 1 1 Reason Comments Cholesteatoma Cc: pt here regardin g cholesteatoma of the left ear. Pt states symptoms include tinnitus in the left ear and pressure. Reason Comments Lab Orders Reason Comments Cholesteatoma Cc: pt here for a fo llow up regarding surgery. Reason Comments Hearing Loss Reason Comments Cholesteatoma Cc: pt here for a 2 month follow up. Reason Comments Post Op Visit TYMPANOPLASTY WITH O SSICULAR CHAIN RECONSTRUCTION - Left with Gera Youngblood MD on 03/05/2022, patient is doing well. Reason Comments Hearing Loss Cc: pt here for a fo llow up regarding surgery. Pt states he feels pressure at the surgery site at times and both ears feel full of wax. Reason Onset Date Comments Refill Request 09/02/2022 Reason Comments Orders Reason Comments Results Reason Onset Date Comments Population Health Navigation Outreach 04/20/2023 [facility] med adherence Reason Comments Follow-up Patient here for fol low up. Care Teams (unrecognized sec tion and content) Schedule Supervisor Relationship Specialty Start Date End Date Trent Kramer MD [address] [place], [place] [phone] PCP - General 10/02/09 Schedule Supervisor Relationship Specialty Start Date End Date Trent Kramer MD [address] [place] [phone] PCP - General Internal Medicine 09/18/21 Schedule Supervisor Relationship Specialty Start Date End Date Trent Kramer MD [address] [place], [place] [id number] PCP - General 10/02/09 Schedule Supervisor Relationship Specialty Start Date End Date Trent Kramer MD [address] [facility] [place] [address] PCP - General Internal Medicine 09/18/21 Schedule Supervisor Relationship Specialty Start Date End Date Trent Kramer MD [address] [facility] [place] [address] PCP - General Internal Medicine 09/18/21 Schedule Supervisor Relationship Specialty Start Date End Date Trent Kramer MD [address] [facility] [place] [address] PCP - General Internal Medicine 09/18/21 Schedule Supervisor Relationship Specialty Start Date End Date Trent Kramer MD [address] [facility] [place] [address] PCP - General Internal Medicine 09/18/21 Schedule Supervisor Relationship Specialty Start Date End Date Trent Kramer MD [address] [facility] [place] [address] PCP - General Internal Medicine 09/18/21 Schedule Supervisor Relationship Specialty Start Date End Date Trent Kramer MD [address] [facility] [place] [address] PCP - General 10/02/09 Schedule Supervisor Relationship Specialty Start Date End Date Trent Kramer MD [address] [facility] [address] PCP - General 10/02/09 Schedule Supervisor Relationship Specialty Start Date End Date Trent Kramer MD [address] [facility] [place] [address] PCP - General 10/02/09 Schedule Supervisor Relationship Specialty Start Date End Date Trent Kramer MD [address] [facility], [place] [phone] PCP - General 10/02/09 Team Status: Active Member Role Status Dates Dr. Alex Franco MD Primary Care Provider Activ e Team Status: Inactive Member Role Status Dates Dr. Alex Franco MD Primary Care Provider, Atte nding Provider Active Schedule Supervisor Relationship Specialty Start Date End Date Trent Kramer MD [address] [place] [phone] PCP - General Internal Medicine 09/18/21 Schedule Supervisor Relationship Specialty Start Date End Date Trent Kramer MD [address] [place] [phone] PCP - General Internal Medicine 09/18/21 Team Status: Active Member Role Status Dates Dr. Beny Franco MD Primary Care Provider Acti ve Team Status: Active Member Role Status Dates Dr. Beny Franco MD Primary Care Provider Acti ve Dr. Ashish Lynch MD Attending Provider Active Dr. Mac Madrigal MD Referring Provider Active Team Status: Inactive Member Role Status Dates Dr. Beny Franco MD Primary Care Provider Acti ve Dr. Mac Madrigal MD Attending Provider, Referring P panchito Active Justin CONCEPCION PA-C Other Provider Active Scheduled Active and Recently Administ ered Medications (unrecognized section and content) Medication Order 09/16/2021 09/17/2021 09/18/2021 ciprofloxacin-dexamethasone (CIPRODEX) otic suspension 4 drop 4 drop, Left Ear, INTRA-OP ONCE, Starting on Ananya 09/18/21 at 0755, Until Ananya 09/18/21 at 1635, Shake well prior to use., Intra-op/Intra-Proc EPINEPHrine (ADRENALIN) 1:1000 (1mg/mL) nasal solution 1 Bottle 1 Bottle, Topical, ONCE, 1 dose, On Ananya 09/18/21 at 0830, Intra-op/Intra-Proc 0830 (Canceled Entry - Provider: System Discharge - Comment: Automatically canceled at discontinue of medication order) Continuous Medication Order 09/16/2021 09/17/2021 09/18/2021 lactated ringers IV solution Intravenous, at 50 mL/hr, CONTINUOUS, Starting on Ananya 09/18/21 at 0700, Until Ananya 09/18/21 at 1635, Pre-op/Pre-Proc 0712 ($$New Bag$$ - Provider: Rosie Braxton RN)1141 (Paused - Provider: RONALDO Bentley - Comment: Switch to gravity)1142 (Restarted - Provider: RNOALDO Bentley)1415 (Stopped - Provider: Jillian Sweeney RN) lactated ringers IV solution Intravenous, at 100 mL/hr, CONTINUOUS, Starting on Ananya 09/18/21 at 1245, Until Ananya 09/18/21 at 1635, Saline lock when tolerating oral intake and remove IV per ASU protocol., Post-op/Post-Proc 1415 (Not Given - Pr ovider: Jillian Sweeney RN - Reason: Other) remifentanil (ULTIVA) 1 mg in 0.9% sodium chloride 25 mL premade syringe 0.1-0.2 mcg/kg/min 81.1 kg Dosing weight (12.165-24.33 mL/hr, rounded to 12.2-24.3 mL/hr), Intravenous, CONTINUOUS, Starting on Ananya 09/18/21 at 1045, Until Ananya 09/18/21 at 1635, concentration = 40 mcg/ml, Intra-op/Intra-Proc 1103 ($$New Bag$$ - Provider: RONALDO Bentley)1117 (Rate/Dose Change - Provider: RONALDO Bentley)1133 (Stopped - Provider: RONALDO Bentley) PRN Medication Order 09/16/2021 09/17/2021 09/18/2021 acetaminophen (TYLENOL) tablet 650 mg 650 mg, Oral, EVERY 4 HOURS NEEDED, Starting on Ananya 09/18/21 at 1241, Until Ananya 09/18/21 at 1635, Mild Pain, Maximum dose of acetaminophen is 4000 mg from all sources in 24 hours., Post-op/Post-Proc bacitracin ointment (CANCELED) NEEDED, Starting on Ananya 09/18/21 at 1149, Until Ananya 09/18/21 at 1201, Intra-op/Intra-Proc 1149 (Given - Provid er: Gera Youngblood MD - Comment: operative site) ceFAZolin (ANCEF) 2 g in dextrose 100 mL premix IVPB (COMPLETED) 2 g, Intravenous, Administer over 30 Minutes, RIVET PASSER TO PROCEDURE, 1 dose, Starting on Ananya 09/18/21 at 0649, Until Discontinued, Other, Surgical Prophylaxis, Initiate antibiotic administration 30-60 minutes prior to surgical incision and complete administration prior to surgical incision., Pre-op/Pre-Proc 0910 (Given - Provid er: Aurora Neal, SHEET METAL PATTERN CUTTER-DIFFERENTIAL REPAIRER) ciprofloxacin-dexamethasone (CIPRODEX) otic suspension (CANCELED) NEEDED, Starting on Ananya 09/18/21 at 1034, Until Ananya 09/18/21 at 1201, Intra-op/Intra-Proc 1034 (Given - Provid er: Gera Youngblood MD - Comment: Bottled used to soak gel foam) EPINEPHrine (ADRENALIN) 1:1000 (1mg/mL) nasal solution (CANCELED) NEEDED, Starting on Ananya 09/18/21 at 1035, Until Ananya 09/18/21 at 1201, Intra-op/Intra-Proc 1035 (Given - Provid er: Gera Youngblood MD - Comment: used to soak gel foam) HYDROmorphone (DILAUDID) injection 0.2 mg(Linked Group 1) 0.2 mg, Intravenous, EVERY 5 MINUTES NEEDED, Starting on Ananya 09/18/21 at 1229, Until Ananya 09/18/21 at 1635, Moderate Pain, Severe Pain, Use as initial dose. Higher dose may be administered if lower dose did not result in adverse effects (RR<10, decrease in level of consciousness) and was previously documented as ineffective. May give a total of 4mg in PACU., Recovery HYDROmorphone (DILAUDID) injection 0.5 mg(Linked Group 1) 0.5 mg, Intravenous, EVERY 5 MINUTES NEEDED, Starting on Ananya 09/18/21 at 1229, Until Ananya 09/18/21 at 1635, Moderate Pain, Severe Pain, Higher dose may be administered if lower dose did not result in adverse effects (RR<10, decrease in level of consciousness) and was previously documented as ineffective. Decrease back to lower dose if patient has adverse effects, or no PRN used in previous 30 minutes. May give a total of 4mg in PACU ., Recovery ibuprofen (MOTRIN) tablet 400 mg 400 mg, Oral, EVERY 6 HOURS NEEDED, Starting on Ananya 09/18/21 at 1241, Until Ananya 09/18/21 at 1635, Mild Pain, Give with food, Post-op/Post-Proc Lactated Ringers SOLN (CANCELED) NEEDED, Starting on Ananya 09/18/21 at 1140, Until Ananya 09/18/21 at 1201 1140 (Given - Provid er: Gera Youngblood MD - Comment: Surgical Site irrigation) lidocaine-epinephrine 1%-1:172622 injection (CANCELED) NEEDED, Starting on Ananya 09/18/21 at 0916, Until Ananya 09/18/21 at 1201, Intra-op/Intra-Proc 0916 (Given - Provid er: Gera Youngblood MD - Comment: operative site)1141 (Given - Provider: Gera Youngblood MD - Comment: operative site) ondansetron 4mg/2ml (ZOFRAN) injection 4 mg 4 mg, Intravenous, EVERY 4 HOURS NEEDED, Starting on Ananya 09/18/21 at 1241, Until Ananya 09/18/21 at 1635, Nausea / Vomiting, 1st line, Post-op/Post-Proc oxyCODONE (ROXICODONE) oral solution 5 mg(Linked Group 2) 5 mg, Oral, EVERY 4 HOURS NEEDED, Starting on Ananya 09/18/21 at 1241, Until Ananya 09/18/21 at 1635, Moderate Pain, Severe Pain, Post-op/Post-Proc oxyCODONE (ROXICODONE) tablet 5 mg(Linked Group 2) 5 mg, Oral, EVERY 4 HOURS NEEDED, Starting on Ananya 09/18/21 at 1241, Until Ananya 09/18/21 at 1635, Moderate Pain, Severe Pain, Post-op/Post-Proc promethazine (PHENERGAN) injection 6.25 mg 6.25 mg, Intravenous, EVERY 1 HOUR NEEDED, 2 doses, Starting on Ananya 09/18/21 at 1229, Until Ananya 09/18/21 at 1635, Nausea / Vomiting, FIRST line antiemetic, Do not administer within 6 hours of intra-operative dose. AVOID Intra-arterial administration; necrosis & gangrene have resulted. Hand, wrist or foot veins SHOULD BE AVOIDED. Dilute dose with 20 mL normal saline and inject over 5 minutes. Extravasation Risk. If given via IV route: dilute dose with 10mL normal saline and inject through a running IV or line over 5 minutes OR if no active IV or line is saline-dwelled dilute dose with 20mL normal saline and administer over 5 minutes. AVOID Intra-arterial administration; necrosis & gangrene have resulted. Hand, wrist or foot veins SHOULD BE AVOIDED., Recovery Linked Groups Order Group 1: HYDROmorphone (DILAUDID) injection 0.2 mgJump to med 0.2 mg, Intravenous, EVERY 5 MINUTES NEEDED, Starting on Ananya 09/18/21 at 1229, Until Ananya 09/18/21 at 1635, Moderate Pain, Severe Pain
Use as initial dose. Higher dose may be administered if lower dose did not result in adverse effects (RR<10, decrease in level of consciousness) and was previously documented as ineffective. May give a total of 4mg in PACU.
Recovery Or HYDROmorphone (DILAUDID) injection 0.5 mgJump to med 0.5 mg, Intravenous, EVERY 5 MINUTES NEEDED, Starting on Ananya 09/18/21 at 1229, Until Ananya 09/18/21 at 1635, Moderate Pain, Severe Pain
Higher dose may be administered if lower dose did not result in adverse effects (RR<10, decrease in level of consciousness) and was previously documented as ineffective. Decrease back to lower dose if patient has adverse effects, or no PRN used in previous 30 minutes. May give a total of 4mg in PACU .
Recovery Group 2: oxyCODONE (ROXICODONE) tablet 5 mgJump to med 5 mg, Oral, EVERY 4 HOURS NEEDED, Starting on Ananya 09/18/21 at 1241, Until Ananya 09/18/21 at 1635, Moderate Pain, Severe Pain, Post-op/Post-Proc Or oxyCODONE (ROXICODONE) oral solution 5 mgJump to med 5 mg, Oral, EVERY 4 HOURS NEEDED, Starting on Ananya 09/18/21 at 1241, Until Ananya 09/18/21 at 1635, Moderate Pain, Severe Pain, Post-op/Post-Proc Scheduled Medication Order 03/03/2022 03/04/2022 03/05/2022 acetaminophen (TYLENOL) tablet 975 mg (COMPLETED) 975 mg, Oral, ONCE, 1 dose, On Ananya 03/05/22 at 0800, Maximum dose of acetaminophen is 4000 mg from all sources in 24 hours. 0738 (Given - Provid er: Karen Rizo RN) oxyCODONE (ROXICODONE) tablet 5 mg 5 mg, Oral, ONCE, 1 dose, On Ananya 03/05/22 at 0945, Recovery 0945 (Canceled Entry - Provider: System Discharge - Comment: Automatically canceled at discontinue of medication order) Continuous Medication Order 03/03/2022 03/04/2022 03/05/2022 lactated ringers IV solution Intravenous, at 20 mL/hr, CONTINUOUS, Starting on Ananya 03/05/22 at 0715, Until Ananya 03/05/22 at 1336, Pre-op/Pre-Proc 0738 ($$New Bag$$ - Provider: Karen Rizo RN)1100 (Stopped - Provider: Ese Clayton RN) sodium chloride 0.9% IV solution Intravenous, at 50 mL/hr, CONTINUOUS, Starting on Ananya 03/05/22 at 0715, Until Ananya 03/05/22 at 1336, Pre-op/Pre-Proc 0715 (Canceled Entry - Provider: System Discharge - Comment: Automatically canceled at discontinue of medication order) PRN Medication Order 03/03/2022 03/04/2022 03/05/2022 acetaminophen (TYLENOL) tablet 650 mg 650 mg, Oral, EVERY 4 HOURS NEEDED, Starting on Ananya 03/05/22 at 1002, Until Ananya 03/05/22 at 1336, Mild Pain, Maximum dose of acetaminophen is 4000 mg from all sources in 24 hours., Post-op/Post-Proc ceFAZolin (ANCEF) 2 g in dextrose 100 mL premix IVPB (COMPLETED) 2 g, Intravenous, Administer over 30 Minutes, RIVET PASSER TO PROCEDURE, 1 dose, Starting on Ananya 03/05/22 at 0708, Until Ananya 03/05/22 at 0809, Other, senior clinical consultant to OR, Pre-op/Pre-Proc 0809 (Given - Provid er: Manjinder Brito MD) fentaNYL (SUBLIMAZE) injection 25 mcg 25 mcg, Intravenous, Administer over 2 Minutes, EVERY 5 MINUTES NEEDED, Starting on Ananya 03/05/22 at 0943, Until Ananya 03/05/22 at 1336, Moderate Pain, Severe Pain, Additional dose may be administered only if first dose did not result in adverse effects (RR<10, decrease in level of consciousness) and was previously documented as ineffective. May give a total of 100mcg in PACU. If pain unrelieved after 100mcg, notify Anesthesia provider., Recovery lidocaine 1% buffered in sodium bicarbonate 1-8.4 % injection SOSY 1 mL 1 mL, Intradermal, NEEDED, Starting on Ananya 03/05/22 at 0708, Until Ananya 03/05/22 at 1336, Other, for peripheral IV insertion, For peripheral IV insertion, Pre-op/Pre-Proc 0742 (Given - Provid er: Karen Rizo RN) lidocaine-epinephrine 1%-1:470772 injection (CANCELED) NEEDED, Starting on Ananya 03/05/22 at 0817, Until Ananya 03/05/22 at 0953, Intra-op/Intra-Proc 0817 (Given - Provid er: Gera Younbglood MD)0825 (Given - Provider: Virgie Galdamez MD) ondansetron 4mg/2ml (ZOFRAN) injection 4 mg 4 mg, Intravenous, ONCE NEEDED, 1 dose, Starting on Ananya 03/05/22 at 0943, Until Ananya 03/05/22 at 1336, Nausea / Vomiting, SECOND Line, Use if patient still experiencing nausea/vomiting after 1st line antiemetic, Recovery Goals (unrecognized section and content) Goals may be documented in a n alternate sectionGoals may be documented in an alternate section FOR RECORDS PERTAINING TO PATIENTS WHO ARE OR HAVE BEEN ENROLLED IN A CHEMICAL DEPENDENCY/SUBSTANCEABUSE PROGRAM, SOME INFORMATION MAY BE OMITTED. This clinical summary was aggregated from multiple sources. Caution should be exercised in using it in the provision of clinical care. This summary normalizes information from multiple sources, and as a consequence, information in this document may materially change the coding, format and clinical context of patient data. In addition, data may be omitted in some cases. CLINICAL DECISIONS SHOULD BE BASED ON THE PRIMARY CLINICAL RECORDS. [facility]. provides no warranty or guarantee of the accuracy or completeness of information in this document.
== END | disposition home or self-care (01) ==
LOC: US 07:19
PROVIDERS: PCP Family Medicine; Referring Provider Family Medicine; Visit Provider Family Medicine
DX: N50.89 Other specified disorders of the male genital organs (principal)
CPT/HCPCS: 76870; 93976

== ENCOUNTER 2025-01-29 05:57 | Day surgery (SDC) | payer MEDICARE, SELFPAY ==
[2025-01-18 10:00] LABS: Anion Gap 10 (5-15); BUN 21 mg/dL (4-19); BUN/Creat Ratio 24.4 RATIO (10-20); Calcium,Total 9.5 mg/dL (7.6-11.0); Carbon Dioxide 23.7 mmol/L (21.0-32.0); Chloride 102 mmol/L (98-108); Glucose 120 mg/dL (70-99); Potassium 4.4 mmol/L (3.3-5.1)
[2025-01-29] VITALS (12 sets, daily range): BP systolic 114–148; BP diastolic 60–88; PULSE 57–65; RESP 16–18; TEMP 36–36.9; O2SAT 90–99; BMI 29.0
--- OUTSIDE RECORDS SUMMARY | 2025-01-29 05:59 | XMS RPT_ITS | CCD ---
Author Organization [facility] Care Team Providers Care Automotive Manager Name Role Phone MANJINDER SPAER Attending Unavailable MANJINDER SPEAR Primary Care Unavailable MANJINDER SPEAR Admitting Unavailable Williams RAMIREZ, Trent Nelson Primary Care Provider [phone] Unavailable Primary Care Provider Unavailemile Kramer MD, Trent Nelson Primary Care Provider [phone] Williams RAMIREZ, Trent Nelson Primary Care Provider [phone] Williams RAMIREZ, Trent Nelson Primary Care Provider [phone] OLDER, MIRYAM Referring Unavailable WILLIAMS, TRENT Nelson Primary Care Unavailable Williams RAMIREZ, Trent Nelson Primary Care Provider [phone] LEE MORAN Attending Unavailable WILLIAMS, TRENT Nelson Referring Unavailable WILLIAMS, TRENT Nelson Primary Care Unavailable WILLIAMS, TRENT Nelson Primary Care Unavailable SELF, SELF Referring Unavailable GERA YOUNGBLOOD Attending Unavailable WILLIAMS, TRENT Nelson Primary Care Unavailable SELF, SELF Referring Unavailable ELIZABETH AVENDANO Attending Unavailable WILLIAMS, TRENT Nelson Primary Care Unavailable WILLIAMS, TRENT Nelson Referring Unavailable WILLIAMS, TRENT Nelson Primary Care Unavailable GERA YOUNGBLOOD Attending Unavailable Dr. Beny Franco Primary Care Provider Dr. Ashish Lynch Attending Provider [phone] Mac Madrigal Referring Provider [phone] Dr. Beny Farnco MD Primary Care Provider Dr. Beny Franco MD Attending Provider [phone] Dr. Beny Franco MD Referring Provider Uriel RAMIREZ, Dr. Dominguez Attending Provider Beny Franco Referring Unavailable Beny Franco Primary Care Unavailable Alberto Trevino Attending Unavailable Beny Franco Primary Care Unavailable Aline Whitfield Attending Unavailable Alberto Trevino Referring Unavailable Beny Franco Primary Care Unavailable Alberto Trevino Referring Unavailable Alberto Trevino Attending Unavailable Beny Franco Referring Unavailable Beny Franco Attending Unavailable Beny Franco Primary Care Unavailable Medications Current Medications Medication Drug Class(es) Dates Sig (Normalized) Sig (Original) aspirin 81 mg oral tablet (19 sources) Platelet Aggregation Inhibitor, Nonsteroidal Anti-inflammatory Drug Start: 12-12-2024 take 1 tablet by mouth once daily Aspirin 81 mg tablet Active 81 mg PO daily December 12, 2024 12:00am Start: 12-31-2009 aspirin(ECOTRI N LOW STRENGTH 81 MG TAB) Take one(1) tablet daily. 0 12/31/2009 Active aspirin 81 MG Ch ew Tab chewable tablet Chew 1 tablet daily. 0 Active Comment on above: Take one(1) tablet d aily. cephalexin 500 mg oral capsule (1 source) Cephalosporin Antibacterial Start: 022 End: take 2 capsules by mouth every twelve hours cephALEXin (Keflex) 500 MG capsule Take 2 capsules by mouth every 12 hours for 7 days. 28 capsule 0 09/18/2021 09/25/2021 Active hydroCHLOROthiazide 12.5 mg / lisinopril 20 mg oral tablet (20 sources) Thiazide Diuretic, Angiotensin Converting Enzyme Inhibitor Start: 025 Lisinopril-Hydroc hlorothiazide 20-12.5 mg tablet Active 1 {tbl} PO daily December 12, 2024 12:00am Start: 08-21-2020 End: 09-02-2022 take 1 tablet by mouth once daily in the morning lisinopril-hydrochlorothiazide 20-12.5 M G per tablet Take 1 tablet by mouth daily every morning. 0 09/02/2021 Active Comment on above: Take 1 tablet by bertin th every morning. Multiple Vitamin (MULTIVITAMINS PO) (5 sources) Multiple Vitamin (MULTIVITAMINS PO) Take by mouth. 0 Active ofloxacin 3 mg/ml otic solution (2 sources) Quinolone Antimicrobial Start: 2 End: 2 ofloxacin (Floxin Otic) 0.3 % solution 5 drops by Otic route 2 times daily for 7 days. 5 mL 0 09/16/2021 09/23/2021 Active omeprazole 20 mg delayed release oral capsule (18 sources) Proton Pump Inhibitor Start: 5 take 1 capsule by mouth once daily Omeprazole 20 mg capsule,delayed release(DR/EC) Active 20 mg PO daily December 12, 2024 12:00am Omeprazole Magne sium (PRILOSEC OTC PO) Take 20 mg by mouth. 0 Active take 1 capsule by mouth once eren ly omeprazole (PRILOSEC) 20 mg capsule Indications: Gastroesophageal reflux disease, esophagitis presence not specified Take 20 mg by mouth once daily. 0 Active Comment on above: Take 20 mg by mouth once daily. ondansetron 4 mg oral tablet (8 sources) Serotonin-3 Receptor Antagonist Start: 2 take 1 tablet by mouth every eight [...] as needed acetaminophen (TYLENOL) tablet 650 mg calcium chloride 0.0014 meq/ ml / potassium chloride 0.004 meq/ml / sodium [...] Problem Classification Problem Date Documented Date Episodic/Chronic Abdominal hernia (3 sources) Right inguinal hernia ; Translations: [Unilateral inguinal hernia, without obstruction or gangrene, not specified as recurrent] Onset: 12-12-2024 12-12-2024 Episodic Esophageal disorders (6 sources) Gastroesophageal reflux disease; Translations: [Gastro-esophageal reflux disease without esophagitis] Onset: 04-07-2005 04-07-2005 Chronic Essential hypertension (8 sources) Hypertensive disorder; Translations: [Essential (primary) hypertension] Onset: 12-03-2009 12-03-2009 Chronic Other ear and sense organ disorders [...] Translations: [Tinnitus, left ear] Onset: 05-18-2023 Episodic Other male genital disorders (1 source) Other specified disorders of the male genital organs; Translations: [Other specified disorders of the male genital organs] Onset: 12-02-2024 Episodic Otitis media and related conditions (14 [...] Test Name Value Interpretation Reference Range Facility Basic Metabolic Profile (BMP )on 01-18-2025 BUN/CRE 24.4 RATIO High 10-20 [facility] Comment on above: Order Comment: PT DI DNT WANT RANNEYS ORDERS AT THIS TIME Performed By: #### L 500.2500 #### [facility] [address] [place], [place], [id number] Calcium [Mass/Vol] 9.5 mg/dL Normal 7.6-11.0 [facility] Comment on above: Order Comment: PT DI DNT WANT RANNEYS ORDERS AT THIS TIME Performed By: #### L 500.2500 #### [facility] [address] [place], [address] Chloride [Moles/Vol] 102 mmol/L Normal 98-108 [facility] Comment on above: Order Comment: PT DI DNT WANT RANNEYS ORDERS AT THIS TIME Performed By: #### L 500.2500 #### [facility] [address] [place], [address] CO2 [Moles/Vol] 23.7 mmol/L Normal 21.0-32.0 [facility] Comment on above: Order Comment: PT DI DNT WANT RANNEYS ORDERS AT THIS TIME Performed By: #### L 500.2500 #### [facility] [address] [place], [address] Creatinine [Mass/Vol] 0.84 mg/dL Normal 0.70-1.20 [facility] Comment on above: Order Comment: PT DI DNT WANT RANNEYS ORDERS AT THIS TIME Performed By: #### L 500.2500 #### [facility] [address] [place], [address] GAP 10 Normal 5-15 [facility] Comment on above: Order Comment: PT DI DNT WANT RANNEYS ORDERS AT THIS TIME Performed By: #### L 500.2500 #### [facility] [address] [place], [address] GFR/1.73 sq M.predicted among non-blacks MDRD (S/P/Bld) [Vol rate/Area] 90 mL/min/{1.73_m2} Normal >60 [facility] Comment on above: Order Comment: PT DI DNT WANT RANNEYS ORDERS AT THIS TIME Result Comment: mL/m in/1.73m2 CKD-EPI Creatinine Equation (2020) Performed By: #### L 500.2500 #### [facility] [address] [place], [address] Glucose [Mass/Vol] 120 mg/dL High 70-99 [facility] Comment on above: Order Comment: PT DI DNT WANT RANNEYS ORDERS AT THIS TIME Performed By: #### L 500.2500 #### [facility] [address] [place], [address] Potassium [Moles/Vol] 4.4 mmol/L Normal 3.3-5.1 [facility] Comment on above: Order Comment: PT DI DNT WANT RANNEYS ORDERS AT THIS TIME Performed By: #### L 500.2500 #### [facility] [address] [place], [address] Sodium [Moles/Vol] 136 mmol/L Normal 133-145 [facility] Comment on above: Order Comment: PT DI DNT WANT RANNEYS ORDERS AT THIS TIME Performed By: #### L 500.2500 #### [facility] [address] [place], [address] Urea nitrogen [Mass/Vol] 21 mg/dL High 4-19 [facility] Comment on above: Order Comment: PT DI DNT WANT RANNEYS ORDERS AT THIS TIME Performed By: #### L 500.2500 #### [facility] [address] [place], [address] Surgery Visit Reporton 12-12 Surgery Visit Report [facility] [address] [place] [address] OFFICE VISIT Date of Service: 12/12/24 MR#: [id number] Acct: [id number] Name: YENI CAGE Rep #: [id number] : 1950 Provider: Dr. Alberto zelaya MD Age/Sex: 74/M Location: [facility] Status: Signed Intake Vital Signs 12/12/24 08:41 Height 5 ft 7 in Weight: 186 lb BMI 29.1 BP 156/52 H Blood Pressure Location Rt brachial Position Sitting Respiration 18 Pulse 75 Pulse Source Monitor Pulse Oximetry (%) 96 Oxygen Delivery Method room air Intake Visit Reasons: INGUINAL HERNIA Chief Complaint: inguinal hernia Is patient in pain?: No Allergies No Known Allergies Allergy (Verified 12/12/24 08:43) Medications ???Medication ???Instructions ???Recorded ???Confirmed ???Type aspirin 81 mg tablet 81 mg PO QDAY 12/12/24 12/12/24 Hi story lisinopril 20 1 tab PO QDAY 12/12/24 12/12/24 Hi story mg-hydrochlorothiazide 12.5 mg tablet omeprazole 20 mg capsule,delayed 20 mg PO QDAY 12/12/24 12/12/24 Hi story release Have you fallen in the past year?: No PFSH Medical History (Updated 12/12/24 @ 08:40 by Aracelis Powell) Sleep apnea Acid reflux Arthritis HTN (hypertension) Surgical History (Updated 12/12/24 @ 08:40 by Aracelis Powell) H/O bilateral cataract extraction History of bilateral knee replacement Family History (Updated 12/12/24 @ 08:41 by Aracelis Powell) Brother Cancer esophagus/lung Brother Heart disease Sister Heart disease Social History (Updated 12/12/24 @ 08:41 by Aracelis Powell) Smoking Status: Never smoker alcohol intake: current alcohol intake frequency: holidays/special occasions only HPI HPI HPI: Patient is a 74-year-old male with right groin bulging. He says has been going on for several years. He reports that laying down it goes away. He is not having any pain or discomfort. He denies nausea or vomiting or fevers or chills. ROS General General: No weight change, appetite, fatigue, colon cancer, breast cancer or weakness HEENT HEENT: Yes eye surgery; No difficulty swallowing, eye injury, swollen glands or hoarseness Endo Endocrine: No thyroid disease, diabetes mellitus, thyroid cancer, Hair loss, heat intolerance or cold intolerance Skin Skin: No rash or changing moles Musc Musculoskeletal: Yes arthritis; No back problems, rheumatoid arthritis, gout or joint pain Cardio Cardiovascular: Yes high blood pressure; No murmur, pacemaker, heart disease, atrial fibrillation, heart attack, heart stent, palpitations, shortness of breath with exertion or chest pain Psych Psychiatric: No depression, anxiety or hearing voices Resp Respiratory: No shortness of breath, Yes sleep apnea, No cough, No COPD, No asthma, No emphysema and No wheezing Additional Details: c-pap Gastro Gastrointestinal: No abdominal pain, No nausea or vomiting, No diarrhea, No constipation, No blood in stool, Yes acid reflux, No hemorrhoids, No ulcers, No gallbladder problem and No black,tarry stools Parvez Hematologic: No blood thinners, No blood disorders, No bleeding, No anemia and No blood clots Neuro Neurologic: No system reviewed and no additional complaints, except as documented, No as per HPI, No abnormal gait, No abnormal hearing, No abnormal movements, No abnormal speech, No behavioral changes, No burning sensations, No confusion, No convulsions, No disequilibrium, No dizziness, No localized weakness, No frequent falls, No headache(s), No lack of coordination, No loss of vision, No memory loss, No numbness, No other visual disturbances, No radicular pain, No restless legs, No sensory deficit, No syncope, Yes tingling, No tremor(s), No weakness and No other Exam Const General: cooperative Orientation: alert and oriented x3 HENMT Head: normal to inspection Neck Neck: normal visual inspection and full ROM Chest Chest palpation inspection: normal inspection of the chest Resp Effort Inspection: normal respiratory effort Auscultation: clear to auscultation bilaterally Cardio Rate: regular rate Rhythm: regular rhythm GI Inspection: non-distended Palpation: soft, hernia indirect inguinal on the right and nontender Skin General: no rashes or lesions noted Neuro General: patient alert and patient oriented x3 Extrem General: full ROM Psych Appearance: grossly normal Mental Status: mental status grossly normal Assessment and Plan Assessment and Plan (1) Inguinal hernia, right: Status: Acute Plan: Patient has a right inguinal hernia which is quite large. It is reducible. I discussed robotic assisted laparoscopic inguinal hernia repair with mesh. I discussed the procedure in detail as well as the risks including but not limited to bleedin (more content not included)... Normal [facility] Testicular with Arterial Anjum won 11-29-2024 Testicular with Arterial Flow [facility] Imaging Services [address] [place] [address] Testicular with Arterial Flow MR#: [id number] Acct: [id number] Name: YENI CAGE Rep #: [id number] : 1950 M 74 From: Catracho terrell MD PCP: Dr. Beny Franco MD Status: REG CLI Study: Testicular with Arterial Flow Date of Exam: Exam# [id number] Ordering Dr: Beny Franco PROCEDURE: TESTICULAR WITH ARTERIAL FLOW 11/29/2024 REASON FOR EXAM: R TESTICULAR SWELLING FOR 6 MONTHS. SWELLING V HERNIA. TECHNIQUE: TESTICULAR WITH ARTERIAL FLOW COMPARISON: None FINDINGS: RIGHT testicle: 4.3 cm x 3.3 cm x 2.1 cm Right epididymis: 0.9 cm x 1.3 cm x 0.5 cm LEFT testicle: 4.3 cm x 3.3 cm x 2.5 cm Left epididymis: 1 cm x 1.1 cm x 0.9 cm Other findings: Moderate bilateral hydroceles. Incidental finding is made of right inguinal hernia extending to the right scrotum. US/Testicular with Arterial Flow IMPRESSION: Moderate bilateral hydroceles. Right scrotal hernia. Reading Location: [facility] CC: Dr. Beny Franco MD Engineering Aide: Signed Normal [facility] Absolute lymphocyte countOrd ered By: Mac Madrigal on 09-23-2023 Lymphocytes Auto (Unsp spec) [#/Vol] 0.80 10*3/uL 0.83-4.51 [facility] Automated lymphocyte count a s percentage of total leukocytesOrdered By: Mac Madrigal on 09-23-2023 Lymphocytes/100 WBC Auto (Unsp spec) 13.4 % 19-41 [facility] Basophil percentageOrdered B y: Mac Madrigal on 09-23-2023 Basophils/100 WBC (Bld) 0.8 % 0-1 [facility] Chloride [Moles/Vol] 105 mmol/L 98-107 [facility] Eosinophils/100 WBC (Bld) 3.5 % 0-5 [facility] Glucose [Mass/Vol] 111 mg/dL 74-106 [facility] Comment on above: Fasting Glucose resu lt from 100 to 125 mg/dL suggests IMPAIRED HOMEOSTASIS per A.D.A. criteria. Hemoglobin (Bld) [Mass/Vol] 12.7 g/dL 13.0-16.5 [facility] Monocytes/100 WBC (Bld) 6.7 % 0-10 [facility] Neutrophils (Bld) [#/Vol] 4.5 10*3/uL 2.0-7.7 [facility] Neutrophils/100 WBC (Bld) 75.3 % 47-70 [facility] Potassium [Moles/Vol] 4.1 mmol/L 3.5-5.1 [facility] Sodium [Moles/Vol] 137 mmol/L 136-145 [facility] WBC (Bld) [#/Vol] 6.0 10*3/uL 4.4-11.0 [facility] Determination of erythrocyte mean corpuscular volume (MCV)Ordered By: Mac Madrigal on 09-23-2023 MCV (RBC) [Entitic vol] 89.5 fL 80-94 [facility] Erythrocyte distribution wid th ratioOrdered By: Mac Madrigal on 09-23-2023 Erythrocyte distribution width (RBC) [Ratio] 13.9 % 11.6-14.6 [facility] Erythrocyte distribution wid th standard deviationOrdered By: Mac Madrigal on 09-23-2023 Erythrocyte distribution width (RBC) [Entitic vol] 45.1 fL 35.1-43.9 [facility] Hematocrit Auto (Bld) [Volum e fraction]Ordered By: Mac Madrigal on 09-23-2023 Hematocrit (Bld) [Volume fraction] 38.5 % 40-54 [facility] Immature granulocytes/100 WB C Auto (Bld)Ordered By: Mac Madrigal on 09-23-2023 Immature granulocytes/100 WBC (Bld) 0.300 % 0.0-0.9 [facility] Comment on above: IG% - Immature Granu locytes (promyelocytes, myelocytes and metamyelocytes) > 1% indicates that a LEFT SHIFT is Present. Laboratory - Chemistry and C hemistry - challengeOrdered By: Mac Madrigal on 09-23-2023 CO2 [Moles/Vol] 28.0 mmol/L 21.0-32.0 [facility] Urea nitrogen/Creatinine [Mass ratio] 27.7 mg/mg 10-20 [facility] Laboratory - Hematology and Cell countsOrdered By: Mac Madrigal on 09-23-2023 MCH (RBC) [Entitic mass] 29.5 pg 27.0-32.0 [facility] MCHC (RBC) [Mass/Vol] 33.0 g/dL 32-36 [facility] Nucleated RBC/100 WBC (Bld) [Ratio] 0 % 0-5 [facility] Platelet mean volume (Bld) [Entitic vol] 9.1 fL 6.2-12.0 [facility] Platelets (Bld) [#/Vol] 266 10*3/uL 150-450 [facility] No Panel InformationOrdered By: Mac Madrigal on 09-23-2023 Estimated GFR (MDRD) Amer 129 mL/min >60 [facility] Comment on above: GFR Calc Estimated GFR (MDRD) Non-Af Amer 107 mL/min >60 [facility] Comment on above: Non- GFR Calc RBC Auto (Bld) [#/Vol]Ordere d By: Mac Madrigal on 09-23-2023 RBC (Bld) [#/Vol] 4.30 10*6/uL 4.6-6.2 [facility] Serum or plasma calcium lester urement (mass/volume)Ordered By: Mac Madrigal on 09-23-2023 Calcium [Mass/Vol] 9.2 mg/dL 8.5-10.1 [facility] Serum or plasma creatinine m easurement (mass/volume)Ordered By: Mac Madrigal on 09-23-2023 Creatinine [Mass/Vol] 0.76 mg/dL 0.70-1.30 [facility] Comment on above: The validity of the calculated GFR & GFRAA in patients over 70 years has not been determined. Clinical correlation is essential. Serum or plasma urea nitroge n measurement (mass/volume)Ordered By: Mac Madrigal on 09-23-2023 Urea nitrogen [Mass/Vol] 21 mg/dL 12-22 [facility] Thin prep Papanicolaou smear with manual screeningOrdered By: Mac Madrigal on 09-23-2023 Thin prep Papanicolaou smear with manual screening 3.7 g/dL 3.2-5.0 [facility] Thin prep Papanicolaou smear with manual screening 4 5-15 [facility] AUDIOGRAMon 05-18-2023 [facility] Radiology Study observation (narrative) [facility] Basophil percentageOrdered B y: Alex Franco on 11-18-2023 Bilirubin [Mass/Vol] 0.50 mg/dL 0.20-1.00 [facility] Comment on above: For patients on eltr ombopag therapy, use of Dimension Ubly TBIL is not recommended. Chloride [Moles/Vol] 108 mmol/L 98-107 [facility] Cholesterol [Mass/Vol] 169 mg/dL <200 [facility] Comment on above: <200 mg/dL Desirable 200-240 mg/dL Borderline >240 mg/dL High Risk Glucose [Mass/Vol] 119 mg/dL 74-106 [facility] Comment on above: Fasting Glucose resu lt from 100 to 125 mg/dL suggests IMPAIRED HOMEOSTASIS per A.D.A. criteria. Potassium [Moles/Vol] 4.5 mmol/L 3.5-5.1 [facility] Protein [Mass/Vol] 7.2 g/dL 6.4-8.2 [facility] Sodium [Moles/Vol] 139 mmol/L 136-145 [facility] Triglyceride [Mass/Vol] 60 mg/dL <199 [facility] Comment on above: The drugs N-Acetylcy steine and Metamizole may falsely depress this assay.Serum Triglycerides Reference Interval Normal <150 mg/dL Borderline high 150 - 199 mg/dL High 200 - 499 mg/dL Very High > or = 500 mg/dL Laboratory - Chemistry and C hemistry - challengeOrdered By: Alex Franco on 04-24-2023 ALP [Catalytic activity/Vol] 69 U/L 45-117 [facility] ALT [Catalytic activity/Vol] 22 U/L 16-61 [facility] CO2 [Moles/Vol] 26.0 mmol/L 21.0-32.0 [facility] Globulin (S) [Mass/Vol] 3.8 g/dL 2.2-4.2 [facility] Urea nitrogen/Creatinine [Mass ratio] 28.8 mg/mg 10-20 [facility] No Panel InformationOrdered By: Alex Franco on 04-24-2023 Estimated GFR (MDRD) Amer 128 mL/min >60 [facility] Comment on above: GFR Calc Estimated GFR (MDRD) Non-Af Amer 106 mL/min >60 [facility] Comment on above: Non- GFR Calc Prostate Specific Antigen Screen 1.64 ng/mL 0.00-4.00 [facility] Comment on above: This test was perfor med using the TPSA assay method for [employer] chemistry system. Values obtained with differentassay methods cannot be used interchangably.When changing PSA assays in the course of monitoring apatient, additional sequential testing should be carriedout to confirm baseline values. Serum or plasma albumin lester urement (mass/volume)Ordered By: Alex Franco on 04-24-2023 Albumin [Mass/Vol] 3.4 g/dL 3.2-5.0 [facility] Serum or plasma albumin/glob ulin mass ratioOrdered By: Alex Franco on 04-24-2023 Albumin/Globulin [Mass ratio] 0.9 {ratio} 0.9-2.4 [facility] Serum or plasma calcium lester urement (mass/volume)Ordered By: Alex Franco on 04-24-2023 Calcium [Mass/Vol] 8.9 mg/dL 8.5-10.1 [facility] Serum or plasma cholesterol in HDL measurement (mass/volume)Ordered By: Alex Franco on 04-24-2023 Cholesterol in HDL [Mass/Vol] 59 mg/dL >40 [facility] Comment on above: The drugs N-Acetylcy steine and Metamizole may falsely depress this assay. Reference Range HDL <40 mg/dL Low HDL Cholesterol HDL >or= 60 mg/dL High HDL Cholesterol Serum or plasma cholesterol in VLDL measurement (mass/volume)Ordered By: Alex Franco on 04-24-2023 Cholesterol in VLDL [Mass/Vol] 12 mg/dL 5-40 [facility] Serum or plasma creatinine m easurement (mass/volume)Ordered By: Alex Franco on 04-24-2023 Creatinine [Mass/Vol] 0.76 mg/dL 0.70-1.30 [facility] Comment on above: The validity of the calculated GFR & GFRAA in patients over 70 years has not been determined. Clinical correlation is essential. Serum or plasma low density lipoprotein (LDL) cholesterol measurement (mass/volume)Ordered By: Alex Franco on 04-24-2023 Cholesterol in LDL [Mass/Vol] 98 mg/dL 0-130 [facility] Serum or plasma urea nitroge n measurement (mass/volume)Ordered By: Alex Franco on 04-24-2023 Urea nitrogen [Mass/Vol] 22 mg/dL 7-18 [facility] Thin prep Papanicolaou smear with manual screeningOrdered By: Alex Franco on 04-24-2023 Thin prep Papanicolaou smear with manual screening 16 U/L 15-37 [facility] Thin prep Papanicolaou smear with manual screening 5 5-15 [facility] CNPNon 09-04-2022 CNPN Telephone (INTMWS) YENI CAGE ([id number]) 1950 M Date Time Provider Department 09/04/22 MIRYAM GLOVER During your visit today, we recorded the following information about you: Momo Sorensen Ma 09/04/2022 2:30 PM Signed ----- Message from Miryam Glover APRN.ADELAIDA sent at 09/04/2022 1:13 PM EDT ----- [...] by MOMO SORENSEN MA on 09/08/22 Normal [facility] CBC panel Auto (Bld)on 09-03 Erythrocyte distribution width (RBC) [Ratio] 13.3 % Normal 11.5-15.0 [facility] Comment on above: Order Comment: Speci men Type: BLOOD SPECIMEN Ordering Facility: [facility] Address: [address] [place] [id number] Performed By: #### 5 [id number] #### [facility] CLIA [id number] [facility] [address] [place] Hematocrit (Bld) [Volume fraction] 38.9 % Low 39.0-51.0 [facility] [facility] Comment on above: Order Comment: Speci men Type: BLOOD SPECIMEN Ordering Facility: [facility] Address: [address] [place] [address] Performed By: #### 5 8410-2 #### [facility] CLIA [id number] [address] [place] [address] [place] Hemoglobin (Bld) [Mass/Vol] 12.6 g/dL Low 13.0-17.0 [facility] Comment on above: Order Comment: Speci men Type: BLOOD SPECIMEN Ordering Facility: [facility] Address: [address] [place] [address] Performed By: #### 5 8410-2 #### [facility] CLIA [id number] [address] [place] [address] STATES [facility] MCH (RBC) [Entitic mass] 29.0 pg Normal 26.0-34.0 [facility] Comment on above: Order Comment: Speci men Type: BLOOD SPECIMEN Ordering Facility: [facility] Address: [address] [place], [place] [address] Performed By: #### 5 8410-2 #### [facility] CLIA [id number] [address] [place] [address] [place] MCHC (RBC) [Mass/Vol] 32.4 g/dL Normal 30.5-36.0 [facility] Comment on above: Order Comment: Speci men Type: BLOOD SPECIMEN Ordering Facility: [facility] Address: [address] [place], [place] [address] Performed By: #### 5 8410-2 #### [facility] CLIA [id number] [address] [place] MCV (RBC) [Entitic vol] 89.6 fL Normal 80.0-100.0 [facility] Comment on above: Order Comment: Speci men Type: BLOOD SPECIMEN Ordering Facility: [facility] Address: [address] [place] [address] Performed By: #### 5 8410-2 #### [facility] CLIA [id number] [address] [place] [address] [place] Nucleated RBC (Bld) [#/Vol] 10*3/uL Normal <0.01 [facility] Comment on above: Order Comment: Speci men Type: BLOOD SPECIMEN Ordering Facility: [facility] Address: [address] Performed By: #### 5 8410-2 #### [facility] CLIA [id number] [address] [place] [address] [place] Platelet mean volume (Bld) [Entitic vol] 10.9 fL Normal 9.0-12.7 [facility] Comment on above: Order Comment: Speci men Type: BLOOD SPECIMEN Ordering Facility: [facility] Address: [address] [place] [address] Performed By: #### 5 8410-2 #### [facility] CLIA [id number] [address] [place] [address] [place] Platelets (Bld) [#/Vol] 277 10*3/uL Normal 150-400 [facility] Comment on above: Order Comment: Speci men Type: BLOOD SPECIMEN Ordering Facility: [facility] Address: [address] [place] [address] Performed By: #### 5 8410-2 #### [facility] CLIA [id number] [address] [place] [address] [place] RBC (Bld) [#/Vol] 4.34 10*6/uL Normal 4.20-6.00 [facility] Comment on above: Order Comment: Speci men Type: BLOOD SPECIMEN Ordering Facility: [facility] Address: [address] [place] [address] Performed By: #### 5 8410-2 #### [facility] CLIA [id number] [address] [place] [address] [place] WBC (Bld) [#/Vol] 6.19 10*3/uL Normal 3.70-11.00 [facility] Comment on above: Order Comment: Speci men Type: BLOOD SPECIMEN Ordering Facility: [facility] Address: [address] Performed By: #### 5 8410-2 #### [facility] CLIA [id number] [address] OF [facility] Comprehensive metabolic 2000 panelon 09-03-2022 Albumin [Mass/Vol] 4.1 g/dL Normal 3.9-4.9 [facility] Comment on above: Order Comment: Speci men Type: BLOOD SPECIMEN Ordering Facility: [facility] Address: [address] [place], [place] [address] Performed By: #### P SAS1 #### [facility] CLIA [id number] [address] [place] [address] OF [place] ALP [Catalytic activity/Vol] 80 U/L Normal 38-113 [facility] Comment on above: Order Comment: Speci men Type: BLOOD SPECIMEN Ordering Facility: [facility] Address: [address] [place], [place] [address] Performed By: #### P SAS1 #### [facility] CLIA [id number] [address] [place] ALT [Catalytic activity/Vol] 18 U/L Normal 10-54 [facility] Comment on above: Order Comment: Speci men Type: BLOOD SPECIMEN Ordering Facility: [facility] Address: [address] Performed By: #### P SAS1 #### [facility] CLIA [id number] [address] [id number] [address] [place] Anion gap [Moles/Vol] 9 mmol/L Normal 9-18 [facility] Comment on above: Order Comment: Speci men Type: BLOOD SPECIMEN Ordering Facility: [facility] Address: [address] Performed By: #### P SAS1 #### [facility] CLIA [id number] [address] [place] [address] [place] AST [Catalytic activity/Vol] 23 U/L Normal 14-40 [facility] Comment on above: Order Comment: Speci men Type: BLOOD SPECIMEN Ordering Facility: [facility] Address: [address] Performed By: #### P SAS1 #### [facility] CLIA [id number] [address] [place] [address] [place] Bilirubin [Mass/Vol] 0.5 mg/dL Normal 0.2-1.3 [facility] Comment on above: Order Comment: Speci men Type: BLOOD SPECIMEN Ordering Facility: [facility] Address: [address] Performed By: #### P SAS1 #### [facility] CLIA [id number] [address] [place] [address] [place] Calcium [Mass/Vol] 9.7 mg/dL Normal 8.5-10.2 [facility] Comment on above: Order Comment: Speci men Type: BLOOD SPECIMEN Ordering Facility: [facility] Address: [address] Performed By: #### P SAS1 #### [facility] CLIA [id number] [address] [place] [address] [place] Chloride [Moles/Vol] 106 mmol/L High 97-105 [facility] Comment on above: Order Comment: Speci men Type: BLOOD SPECIMEN Ordering Facility: [facility] Address: [address] Performed By: #### P SAS1 #### [facility] CLIA [id number] [address] [place] [address] [place] CO2 [Moles/Vol] 25 mmol/L Normal 22-30 [facility] Comment on above: Order Comment: Speci men Type: BLOOD SPECIMEN Ordering Facility: [facility] Address: [address] [place] [address] Performed By: #### P SAS1 #### [facility] CLIA [id number] [address] [place] [address] [place] Creatinine [Mass/Vol] 0.76 mg/dL Normal 0.73-1.22 [facility] Comment on above: Order Comment: Speci men Type: BLOOD SPECIMEN Ordering Facility: [facility] Address: [address] [place] [address] Performed By: #### P SAS1 #### [facility] CLIA [id number] [address] [place] ESTIMATED GLOMERULAR FILTRATION RATE 94 mL/min/1.73m??? Normal >=60 [facility] Comment on above: Order Comment: Speci men Type: BLOOD SPECIMEN Ordering Facility: [facility] Address: [address] [place] [address] Result Comment: Malathi mated Glomerular Filtration Rate [...] GFR. Performed By: #### P SAS1 #### [facility] CLIA [id number] [address] [place] [address] [place] Glucose [Mass/Vol] 127 mg/dL High 74-99 [facility] Comment on above: Order Comment: Speci men Type: BLOOD SPECIMEN Ordering Facility: [facility] Address: [address] [place] [address] Result Comment: The [place] Diabetes Association (ADA) provides guidance for cutoff [...] Standards of Medical Care in Diabetes 2016, [place] Diabetes Association. Diabetes Care. 2016.39(Suppl 1). Performed By: #### P SAS1 #### [facility] CLIA [id number] [address] [place] [address] [place] Potassium [Moles/Vol] 4.4 mmol/L Normal 3.7-5.1 [facility] Comment on above: Order Comment: Speci men Type: BLOOD SPECIMEN Ordering Facility: [facility] Address: [address] [place] [address] Performed By: #### P SAS1 #### [facility] CLIA [id number] [address] [place] [address] [place] Protein [Mass/Vol] 7.4 g/dL Normal 6.3-8.0 [facility] Comment on above: Order Comment: Speci men Type: BLOOD SPECIMEN Ordering Facility: [facility] Address: [address] [place] [address] Performed By: #### P SAS1 #### [facility] CLIA [id number] [address] [place] [address] [place] Sodium [Moles/Vol] 140 mmol/L Normal 136-144 [facility] Comment on above: Order Comment: Speci men Type: BLOOD SPECIMEN Ordering Facility: [facility] Address: [address] [place] [address] Performed By: #### P SAS1 #### [facility] CLIA [id number] [address] [place] [address] [place] Urea nitrogen [Mass/Vol] 16 mg/dL Normal 9-24 [facility] Comment on above: Order Comment: Speci men Type: BLOOD SPECIMEN Ordering Facility: [facility] Address: [address] [place] [address] Performed By: #### P SAS1 #### [facility] CLIA [id number] [address] [place] [address] [place] HbA1c (Bld)on 09-03-2022 Average glucose Estimated from glycated hemoglobin (Bld) [Mass/Vol] 137 mg/dL Normal [facility] Comment on above: Order Comment: Speci men Type: BLOOD SPECIMEN Ordering Facility: [facility] Address: [address] [place] [address] Result Comment: eAG: (Estimated average glucose) is a calculated value from HgbA1c and is client care representative of the average blood glucose level in the last 2-3 month period. Performed By: #### 5 5454-3 #### [facility] CLIA [id number] [address] [place] [address] [place] HbA1c (Bld) [Mass fraction] 6.4 % High 4.3-5.6 [facility] Comment on above: Order Comment: Speci men Type: BLOOD SPECIMEN Ordering Facility: [facility] Address: [address] [place] [address] Result Comment: [place] Diabetes Association guidelines indicate that patients with HgbA1c in the range 5.7-6.4% are at increased risk for development of diabetes, and intervention by lifestyle modification may be beneficial. HgbA1c greater or equal to 6.5% is considered diagnostic of diabetes. Performed By: #### 5 5454-3 #### [facility] CLIA [id number] [address] [place] [address] [place] Lipid 1996 panelon 3 Cholesterol [Mass/Vol] 193 mg/dL Normal <200 [facility] Comment on above: Order Comment: Toni feldman Type: BLOOD SPECIMEN Ordering Facility: [facility] Address: [address] [place] [address] Result Comment: <200 mg/dL, Desirable 200-239 mg/dL, Borderline high >239 mg/dL, High Performed By: #### P SAS1 #### [facility] CLIA [id number] [facility] [address] STATES [facility] Cholesterol in HDL [Mass/Vol] 56 mg/dL Normal >39 [facility] Comment on above: Order Comment: Toni feldman Type: BLOOD SPECIMEN Ordering Facility: [facility] Address: [address] [place] [address] Result Comment: 40-5 9 mg/dL, Acceptable >59 mg/dL, High: Negative risk factor for coronary heart disease <40 mg/dL, Low: Positive risk factor for coronary heart disease Performed By: #### P SAS1 #### [facility] CLIA [id number] [address] [place] [address] Cholesterol in LDL [Mass/Vol] 127 mg/dL High <100 [facility] Comment on above: Order Comment: Toni feldman Type: BLOOD SPECIMEN Ordering Facility: [facility] Address: [address] [place] [address] Result Comment: <100 mg/dL, Optimal 100-129 mg/dL, Near optimal/above optimal 130-159 mg/dL, Borderline high 160-189 mg/dL, High >189 mg/dL, Very high Secondary prevention optimal LDL Cholesterol levels are recommended to be < 70 mg/dL Performed By: #### P SAS1 #### [facility] CLIA [id number] [facility] [address] OF [facility] Cholesterol in LDL/Cholesterol in HDL [Mass ratio] 2.27 {ratio} Normal <2.54 [facility] Comment on above: Order Comment: Toni men Type: BLOOD SPECIMEN Ordering Facility: [facility] Address: [address] [place] [address] Result Comment: Shadia brewer: 1. National Cholesterol Education Program ATP III Guideline At-A-Glance Quick Desk Reference: National Heart, Lung, and Blood [place]. National Institutes of Health. 2001: NIH Publication No. 01-3305. 2. An International Atherosclerosis Society position paper: global recommendations for the management of dyslipidemia: executive summary, Atherosclerosis. 2014: 232(2):410-413. Performed By: #### P SAS1 #### [facility] CLIA [id number] [address] [place] [address] [place] Cholesterol in VLDL [Mass/Vol] 10 mg/dL Normal <30 [facility] Comment on above: Order Comment: Toni feldman Type: BLOOD SPECIMEN Ordering Facility: [facility] Address: [address] [place] [address] Performed By: #### P SAS1 #### [facility] CLIA [id number] [address] [place] [address] [place] Cholesterol non HDL [Mass/Vol] 137 mg/dL High <130 [facility] Comment on above: Order Comment: Toni feldman Type: BLOOD SPECIMEN Ordering Facility: [facility] Address: [address] [place] [address] Result Comment: <130 mg/dL, Optimal 130-159 mg/dL, Near optimal/above optimal 160-189 mg/dL, Borderline high 190-219 mg/dL, High >219 mg/dL, Very high Secondary prevention optimal non HDL Cholesterol levels are recommended to be <100 mg/dL Performed By: #### P SAS1 #### [facility] CLIA [id number] [facility] [place] [address] [place] Cholesterol.total/Cho lesterol in HDL [Mass ratio] 3.45 {ratio} Normal <5.10 [facility] Comment on above: Order Comment: Toni feldman Type: BLOOD SPECIMEN Ordering Facility: [facility] Address: [address] [place] [address] Performed By: #### P SAS1 #### [facility] CLIA [id number] [address] [place] [address] [place] FASTING TIME 12 hrs Normal [facility] Comment on above: Order Comment: Speci men Type: BLOOD SPECIMEN Ordering Facility: [facility] Address: [address] [place] [address] Performed By: #### P SAS1 #### [facility] CLIA [id number] [address] [place] Triglyceride [Mass/Vol] 48 mg/dL Normal <150 [facility] Comment on above: Order Comment: Speci men Type: BLOOD SPECIMEN Ordering Facility: [facility] Address: [address] [place] [address] Result Comment: <150 mg/dL, Normal 150-199 mg/dL, Borderline high 200-499 mg/dL, High >499 mg/dL, Very high Performed By: #### P SAS1 #### [facility] CLIA [id number] [address] [place] [address] [place] PSA/PROSTSPECAG SCRNon 09-03 Prostate specific Ag [Mass/Vol] 1.22 ng/mL Normal <2.60 [facility] Comment on above: Order Comment: Speci men Type: BLOOD SPECIMEN Ordering Facility: [facility] Address: [address] [place] [address] Result Comment: Tota l PSA test methodology used is the Electrochemiluminescence Immunoassay by [employer]. Total PSA values by differing methodologies cannot be interchanged. Performed By: #### P SAS1 #### [facility] CLIA [id number] [address] [place] [address] [place] CNPNon 09-02-2022 CNPN Telephone (INTMWS) DANITZAYENI CURRIE ([id number]) 1950 M Date Time Provider Department 09/02/22 TRENT KRAMER INTMWS During your visit today, we recorded the following information about you: Marry Luna LPN 09/02/2022 11:24 AM Signed Patient scheduled for Annual Medicare Wellness, 09/10/2022. Please put in Lab orders. Marry Glover APRN.ADELAIDA 09/02/2022 2:05 PM Signed Fasting labs ordered Miryam Glover HOSPITAL MORTICIAN.ADELAIDA Sorensen Ma 09/02/2022 3:01 PM Signed Patient notified, verbalized understanding. Momo Sorensen Ma Allergies As of Date: 09/02/2022 (No Known Allergies) Date Reviewed: 05/12/2021 Reviewed by: Manjinder Woody Jr., MD - Fully Assessed Reason for Visit: Orders [681] Primary Visit Diagnosis:Primary hypertension [I10] Other Visit Diagnoses:Impaired fasting glucose [R73.01] Screening for prostate cancer [Z12.5] Order(s):LIPID PANEL BASIC [SQLIPB] Order #: [id number] FUTURE COMP METABOLIC PANEL [SQCMP] Order #: [id number] FUTURE HGB A1C [PEHLY5L] Order #: [id number] FUTURE PSA/PROSTSPECAG SCRN [SQPSAS1] Order #: [id number] FUTURE CBC [SQCBC] Order #: [id number] FUTURE Prescriptions as of 09/02/2022 - lisinopril-hydroCHLOROthiaz [...] by MOMO SORENSEN MA on 09/02/22 Normal [facility] AUDIOGRAMon 05-25-2022 [facility] Radiology Study observation (narrative) [facility] AUDIOGRAMon 12-02-2021 [facility] Radiology Study observation (narrative) [facility] CARDIAC RHYTHM (SCANNED)on 0 09-18-2021 [facility] AUDIOGRAMon 09-16-2021 [facility] Vital Signs Date Time Vital Sign Value Performing Clinician Artemio eldridge 12-12-2024 08:41-0400 Body height 170.[address] Beny Franco MD Work Phone: [facility] 12-12-2024 08:41-0400 Body mass index (BMI) [Ratio] 29.1 kg/m2 Dr. Beny Franco MD Work Phone: [facility] 12-12-2024 08:41-0400 Body weight 84.[address] Beny Franco MD Work Phone: [facility] 12-12-2024 08:41-0400 Diastolic blood pressure 52 mm[Hg] Dr. Beny Franco MD Work Phone: [facility] 12-12-2024 08:41-0400 Heart rate 75 /min Dr. Beny Franco MD Work Phone: [facility] 12-12-2024 08:41-0400 Respiratory rate 18 /min Dr. Beny Franco MD Work Phone: [facility] 12-12-2024 08:41-0400 SaO2% (BldA) [Mass fraction] 96 % Dr. Beny Franco MD Work Phone: [facility] 12-12-2024 08:41-0400 Systolic blood pressure 156 mm[Hg] Dr. Beny Franco MD Work Phone: [facility] 05-18-2023 08:48-0500 Body height 170.2 cm Gera Youngblood MD Work Phone: [facility] 05-18-2023 08:48-0500 Body mass index (BMI) [Ratio] 28.76 kg/m2 Gera Youngblood MD Work Phone: [facility] 05-18-2023 08:48-0500 Body weight 83.3 kg Gera Youngblood MD Work Phone: [facility] 05-18-2023 08:48-0500 Respiratory rate 14 /min Gera Youngblood MD Work Phone: [facility] 05-25-2022 08:22-0500 Body mass index (BMI) [Ratio] 28.76 kg/m2 Gera Youngblood MD Work Phone: [facility] 05-25-2022 08:22-0500 Body weight 83.28 kg Gera Youngblood MD Work Phone: [facility] 05-25-2022 08:22-0500 Heart rate 79 /min Gera Youngblood MD Work Phone: [facility] 05-25-2022 08:22-0500 SaO2% (BldA) [Mass fraction] 99 % Gera Youngblood MD Work Phone: [facility] 03-24-2022 08:22-0400 Body height 170.2 cm Gera Youngblood MD Work Phone: [facility] 03-24-2022 08:22-0400 Body mass index (BMI) [Ratio] 27.88 kg/m2 Gera Youngblood MD Work Phone: [facility] 03-24-2022 08:22-0400 Body weight 80.74 kg Gera Youngblood MD Work Phone: [facility] 03-24-2022 08:22-0400 Heart rate 82 /min Gera Youngblood MD Work Phone: [facility] 03-24-2022 08:22-0400 SaO2% (BldA) [Mass fraction] 94 % Gera Youngblood MD Work Phone: [facility] 03-05-2022 10:45-0400 Diastolic blood pressure 69 mm[Hg] Gera Youngblood MD Work Phone: [facility] 03-05-2022 10:45-0400 Heart rate 52 /min Gera Youngblood MD Work Phone: [facility] 03-05-2022 10:45-0400 Respiratory rate 19 /min Gera Youngblood MD Work Phone: [facility] 03-05-2022 10:45-0400 SaO2% (BldA) [Mass fraction] 95 % Gera Youngblood MD Work Phone: [facility] 03-05-2022 10:45-0400 Systolic blood pressure 113 mm[Hg] Gera Youngblood MD Work Phone: [facility] 03-05-2022 09:54-0400 Body temperature 97.9 [degF] Gera Youngblood MD Work Phone: [facility] 03-05-2022 07:22-0400 Body height 170.2 cm Gera Youngblood MD Work Phone: [facility] 03-05-2022 07:22-0400 Body mass index (BMI) [Ratio] 27.99 kg/m2 Gera Youngblood MD Work Phone: [facility] 03-05-2022 07:22-0400 Body weight 81.06 kg Gera Youngblood MD Work Phone: [facility] 12-02-2021 10:16-0400 Body mass index (BMI) [Ratio] 27.91 kg/m2 Gera Youngblood MD Work Phone: [facility] 12-02-2021 10:16-0400 Body weight 80.83 kg Gera Youngblood MD Work Phone: [facility] 12-02-2021 10:16-0400 Heart rate 65 /min Gera Youngblood MD Work Phone: [facility] 12-02-2021 10:16-0400 SaO2% (BldA) [Mass fraction] 84 % Gera Youngblood MD Work Phone: [facility] 10-07-2021 08:50-0400 Body mass index (BMI) [Ratio] 27.35 kg/m2 Gera Youngblood MD Work Phone: [facility] 10-07-2021 08:50-0400 Body weight 79.2 kg Gera Youngblood MD Work Phone: [facility] 10-07-2021 08:50-0400 Heart rate 70 /min Gera Youngblood MD Work Phone: [facility] 10-07-2021 08:50-0400 SaO2% (BldA) [Mass fraction] 93 % Gera Youngblood MD Work Phone: [facility] 09-18-2021 14:30-0400 Diastolic blood pressure 81 mm[Hg] Gera Youngblood MD Work Phone: [facility] 09-18-2021 14:30-0400 Heart rate 67 /min Gera Youngblood MD Work Phone: [facility] 09-18-2021 14:30-0400 Respiratory rate 16 /min Gera Youngblood MD Work Phone: [facility] 09-18-2021 14:30-0400 Systolic blood pressure 132 mm[Hg] Gera Youngblood MD Work Phone: [facility] 09-18-2021 13:35-0400 Body temperature 97.7 [degF] Gera Youngblood MD Work Phone: [facility] 09-18-2021 13:35-0400 SaO2% (BldA) [Mass fraction] 96 % Gera Youngblood MD Work Phone: [facility] 09-18-2021 06:51-0400 Body height 170.2 cm Gera Youngblood MD Work Phone: [facility] 09-18-2021 06:51-0400 Body mass index (BMI) [Ratio] 27.41 kg/m2 Gera Youngblood MD Work Phone: [facility] 09-18-2021 06:51-0400 Body weight 79.38 kg Gera Youngblood MD Work Phone: [facility] 09-16-2021 13:34-0400 Body height 170.2 cm Gera Youngblood MD Work Phone: [facility] 09-16-2021 13:34-0400 Body mass index (BMI) [Ratio] 28 kg/m2 Gera Youngblood MD Work Phone: [facility] 09-16-2021 13:34-0400 Body weight 81.1 kg Gera Youngblood MD Work Phone: [facility] 09-16-2021 13:34-0400 Heart rate 69 /min Gera Youngblood MD Work Phone: [facility] 09-16-2021 13:34-0400 SaO2% (BldA) [Mass fraction] 96 % Gera Youngblood MD Work Phone: [facility] Encounters Encounter Date Encounter Type Care Provider Facility Start: 01-29-2025 ambulatory Beny Ulloa [facility] Start: 01-26-2025 Encounter for other preprocedural examination Alberto Trevino [facility] Start: 01-18-2025 ambulatory Beny Ulloa [facility] Start: 12-12-2024 End: 12-12-[address] Alberto Trevino MD -[facility] Work Phone: Start: 12-12-2024 End: 12-12-[address] Beny Franco MD Work Phone: -[facility] Start: 11-29-2024 End: 11-29-[address] Beny Franco MD Work Phone: -Ultrasound [facility] Start: 11-29-2024 End: 11-29-[address] Beny Franco MD -Ultrasound [facility] Work Phone: Start: 11-29-2024 End: 11-29-2024 ambulatory Beny Franco Facility:[facility] Start: 09-23-2023 End: 09-23-2023 Non-patient / Non-visit Dr. Beny Franco Work Phone: [facility] Work Phone: Start: 09-23-2023 End: 09-23-[address] Beny Franco Work Phone: [facility] Work Phone: Start: 09-23-2023 End: 09-23-[address] Beny Franco Work Phone: [facility]-Cat Scan, [facility] Work Phone: Start: 05-18-2023 ambulatory TRENT Ulloa lity:[facility] Start: 05-18-2023 End: 05-18-2023 Office outpatient visit 25 minutes Gera Youngblood MD Work Phone: [facility] [place] Comment on above: Impacted cerumen of right ear (Primary Dx); Mixed conductive and sensorineural hearing loss of left ear with restricted hearing of right ear; Partial necrosis of left ear ossicles; Retraction of tympanic membrane of left ear Start: 05-18-2023 End: 05-18-2023 Patient encounter procedure Elizabeth Pagan Work Phone: [facility] [place] Comment on above: Tinnitus, left (Prim kelli Dx); Sensorineural hearing loss (SNHL) of right ear with restricted hearing of left ear; Mixed conductive and sensorineural hearing loss of left ear with restricted hearing of right ear Start: 04-24-2023 End: 04-24-2023 ambulatory [facility] Work Phone: Start: 04-24-2023 End: 04-24-2023 Patient encounter procedure [facility] Work Phone: Start: 04-20-2023 [facility] on above: Population Health Na vigation Outreach ([place] med adherence/) Start: 09-04-2022 Telephone encounter Miryam Older OPAL Work Phone: [facility] [place] Comment on above: Results Start: 09-03-2022 End: 09-04-2022 ambulatory MIRYAM OLDER Facility:[facility] Start: 09-02-2022 Refill Trent madrid MD Work Phone: [facility] [place] Comment on above: Refill Request Orders Start: 05-25-2022 ambulatory TRENT Ulloa lity:[facility] Start: 05-25-2022 End: 05-25-2022 Postop follow up visit related to original px Gera Youngblood MD Work Phone: [facility] [place] Comment on above: Cholesteatoma, left (Primary Dx); Mixed conductive and sensorineural hearing loss of left ear with restricted hearing of right ear; Partial necrosis of left ear ossicles Start: 05-25-2022 End: 05-25-2022 Patient encounter procedure Lee Pagan Work Phone: [facility] Comment on above: Mixed hearing loss, bilateral (Primary Dx); Tinnitus, left Start: 03-24-2022 End: 03-24-2022 Postop follow up visit related to original px Gera Youngblood MD Work Phone: [facility] Comment on above: 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); Mixed conductive and sensorineural hearing loss of left ear with restricted hearing of right ear Start: 03-05-2022 End: 03-05-2022 Subsequent hospital visit by physician Gera Youngblood MD Work Phone: [facility] [place] Comment on above: Mixed conductive and sensorineural hearing loss of left ear with restricted hearing of right ear Start: 12-02-2021 End: 12-02-2021 Postop follow up visit related to original px Gera Youngblood MD Work Phone: [facility] [place] Comment on above: Mixed conductive and sensorineural hearing loss of left ear with restricted hearing of right ear (Primary Dx); Partial necrosis of left ear ossicles Start: 12-02-2021 End: 12-02-2021 Patient encounter procedure Lee Pagan Work Phone: [facility] [place] Comment on above: Sensorineural hearin g loss (SNHL) of right ear with restricted hearing of left ear (Primary Dx); Mixed conductive and sensorineural hearing loss of left ear with restricted hearing of right ear Start: 10-07-2021 End: 10-07-2021 Postop follow up visit related to original px Gera Youngblood MD Work Phone: [facility] [place] Comment on above: Cholesteatoma, left (Primary Dx); Chronic atticoantral suppurative otitis media of left ear; Mixed conductive and sensorineural hearing loss of left ear with restricted hearing of right ear Start: 10-03-2021 Patient encounter status Sally Kramer MD Work Phone: [facility] [place] Start: 10-03-2021 Telephone encounter Trent perez MD Work Phone: [facility] [place] Comment on above: Lab Orders Start: 09-18-2021 End: 09-18-2021 Subsequent hospital visit by physician Gera Youngblood MD Work Phone: [facility] Comment on above: Cholesteatoma, left Start: 09-16-2021 End: 09-16-2021 Office outpatient new 45 minutes Gera Youngblood MD Work Phone: [facility] [place] Comment on above: Cholesteatoma, left (Primary Dx); Chronic atticoantral suppurative otitis media of left ear; Mixed conductive and sensorineural hearing loss of left ear with restricted hearing of right ear Start: 09-16-2021 End: 09-16-2021 Patient encounter procedure Elizabeth Yung Work Phone: [facility] [place] Comment on above: Mixed hearing loss, unilateral (Primary Dx); Sensorineural hearing loss, unilateral; Cholesteatoma of attic of ear, left Start: 09-02-2021 Refill Trent madrid MD Work Phone: [facility] [place] Comment on above: Prescription Refills Start: 08-13-2020 End: 08-13-2020 Patient encounter procedure MANJINDER SPEAR [facility] Procedures Date Procedure Procedure Detail Performing Clinician Start: 11-29-2024 Ultrasound of scrotu m with Doppler and color flow imaging Dr. Beny Franco MD Work Phone: Start: 09-23-2023 MRI of lower extremity Dr. Beny Franco Work Phone: Start: 05-18-2023 AUDIOGRAM Lee granados AuD Work Phone: Start: 09-03-2022 Lipid 1996 panel - S lilly or Plasma Luba Tina Start: 05-25-2022 AUDIOGRAM Ricarda B H all AuD Work Phone: Start: 12-02-2021 AUDIOGRAM Manuela D Ki rk AuD Work Phone: Start: 09-18-2021 CARDIAC RHYTHM Other Ot her Start: 09-16-2021 AUDIOGRAM Elizabeth Prestonggoner A Work Phone: Start: 09-02-2020 Colonoscopy Trent Wheat MD Work Phone: Start: 02-13-2019 Adult depression screening assessment Trent Kramer MD Work Phone: Plan of Treatment Date Care Activity Detail Author Start: 09-04-2027 Lipid 1996 panel - Serum or Plasma Lipid Screening [facility] Start: 09-04-2027 LIPID SCREEN LIPID SCREEN [facility] Start: 09-03-2025 DIABETES SCREEN DIABETES SCREEN [facility] Start: 09-03-2025 Diabetes Screening Diabetes Screening [facility] Start: 09-02-2025 Colonoscopy COLONOSCOPY [facility] Start: 09-02-2025 COLORECTAL CANCER SCREENING COLORECTAL CANCER SCREENING [facility] Start: 08-14-2025 Tetanus vaccination TETANUS [facility] Start: 08-14-2025 Urine microalbumin profile DTaP,Tdap,Td Vaccine (2 - Td or Tdap) [facility] Start: 08-10-2025 Urine microalbumin profile DTAP,TDAP,TD (1 - Tdap) [facility] Comment on above: Postponed from 08/11/2015 (Postponed To Appropriate Date) Start: 11-05-2024 LIPID SCREEN LIPID SCREEN [facility] Start: 06-15-2023 DIABETES SCREEN DIABETES SCREEN [facility] Start: 05-18-2023 End: 05-18-2023 Patient encounter procedure [facility] [place] Start: 02-05-2023 Covid-19 Vaccine ( season) Covid-19 Vaccine () [facility] Start: 02-05-2023 Influenza vaccination [facility] Start: 09-25-2022 Pneumococcal vaccination PNEUMOCOCCAL VACCINE SERIES (2 - PPSV23 if available, else PCV20) [facility] Start: 09-25-2022 Pneumococcal Vaccine: 65+ (2 - PPSV23 or PCV20) Pneumococcal Vaccine: 65+ (2 - PPSV23 or PCV20) [facility] Start: 09-25-2022 PNEUMOCOCCAL: 65+ (2 - PPSV23 if available, else PCV20) PNEUMOCOCCAL: 65+ (2 - PPSV23 if available, else PCV20) [facility] Start: 09-02-2022 End: 11-02-2022 CBC panel - Blood by Automated count CBC Lab Routine Primary hypertension Expected: 09/02/2022, Expires: 11/02/2022 [facility] Work Phone: Comment on above: Expected: 09/02/2022, Expires: 3 Start: 09-02-2022 End: 11-02-2022 Comprehensive metabolic 2000 panel - Serum or Plasma COMP METABOLIC PANEL Lab Routine Primary hypertension Expected: 09/02/2022, Expires: 11/02/2022 [facility] Work Phone: Comment on above: Expected: 09/02/2022, Expires: 3 Start: 09-02-2022 End: 11-02-2022 Hemoglobin A1c in Blood HGB A1C Lab Routine Impaired fasting glucose Expected: 09/02/2022, Expires: 11/02/2022 [facility] Work Phone: Comment on above: Expected: 09/02/2022, Expires: 3 Start: 09-02-2022 End: 11-02-2022 Lipid 1996 panel - Serum or Plasma LIPID PANEL BASIC Lab Routine Primary hypertension Expected: 09/02/2022, Expires: 11/02/2022 [facility] Work Phone: Comment on above: Expected: 09/02/2022, Expires: 3 Start: 09-02-2022 End: 11-02-2022 PSA/PROSTSPECAG SCRN PSA/PROSTSPECAG SCRN Lab Routine Screening for prostate cancer Expected: 09/02/2022, Expires: 11/02/2022 [facility] Work Phone: Comment on above: Expected: 09/02/2022, Expires: 3 Start: 06-07-2022 ADVANCE DIRECTIVE DISCUSSION ADVANCE DIRECTIVE DISCUSSION [facility] Start: 06-07-2022 DEPRESSION ASSESSMENT DEPRESSION ASSESSMENT [facility] Start: 05-25-2022 End: 05-25-2022 Patient encounter procedure [facility] [place] Start: 04-19-2022 ANNUAL PCP TEAM CHRONIC DISEASE VISIT ANNUAL PCP TEAM CHRONIC DISEASE VISIT [facility] Start: 03-18-2022 Subsequent hospital visit by physician 03/18/2022 Hospital Encounter Multispecialty Gera Youngblood MD [address] [place] [address] Mixed conductive and sensorineural hearing loss of left ear with restricted hearing of right ear [facility] [place] Comment on above: Mixed conductive and sensorineural [...] left ear ossicles 03/05/2022 7:59 AM ED[facility] Start: 02-05-2022 End: 02-05-2022 ambulatory 02/05/2022 Telemed Clin Support Multispecialty [facility] Start: 02-05-2022 Influenza vaccination [facility] Start: 02-05-2022 SHINGRIX VACCINE (2 of 2) SHINGRIX VACCINE (2 of 2) [facility] Start: 12-02-2021 End: 12-02-2021 Patient encounter procedure [facility] [place] Start: 10-03-2021 End: 12-03-2021 MUMPS IGG AB MUMPS IGG AB Lab Routine Immunity status testing Expected: 10/03/2021, Expires: 12/03/2021 [facility] Work Phone: Comment on above: Expected: 10/03/2021, Expires: 2 Start: 10-03-2021 End: 12-03-2021 RUBELLA IGG AB RUBELLA IGG AB Lab Routine Immunity status testing Expected: 10/03/2021, Expires: 12/03/2021 [facility] Work Phone: Comment on above: Expected: 10/03/2021, Expires: 2 Start: 10-03-2021 End: 12-03-2021 RUBEOLA (MEASLES)IGG RUBEOLA (MEASLES)IGG Lab Routine Immunity status testing Expected: 10/03/2021, Expires: 12/03/2021 [facility] Work Phone: Comment on above: Expected: 10/03/2021, Expires: 2 Start: 09-18-2021 End: 09-18-2021 Admission to same day surgery center 09/18/2021 Surgery Multispecialty Gera Youngblood MD [address] [place] [address] [address] [place] [address] TYMPANOPLASY MASTOIDECTOMY INTACT OR RECONSTRUCTED CANAL WALL WITH PSB OSSICULAR CHAIN RECONSTRUCTION [facility] Comment on above: TYMPANOPLASY MASTOIDECTOMY INTACT OR REC ONSTRUCTED CANAL WALL WITH PSB OSSICULAR CHAIN RECONSTRUCTION Start: 09-18-2021 Subsequent hospital visit by physician 09/18/2021 Hospital Encounter Multispecialty Gera Youngblood MD [address] [place] [address] Cholesteatoma, left ANASTASIA Comment on above: Cholesteatoma, left Start: 09-18-2021 End: 09-18-2021 Microsurg tqs req use operating microscope [facility] Start: 09-18-2021 End: 09-18-2021 Tmpp mastoidect ntc/rcnsted canal wall ocr [facility] Start: 09-16-2021 End: 09-16-2022 CT Temporal bone WO contrast CT TEMPORAL BONES WITHOUT CONTRAST Imaging Routine Cholesteatoma, left Expected: 09/16/2021, Expires: 09/16/2022 [facility] Comment on above: Expected: 09/16/2021, Expires: 3 Start: 06-19-2021 COVID-19 VACCINE (3 - Booster for Abdi series) COVID-19 VACCINE (3 - Booster for Abdi series) [facility] Start: 06-07-2021 ADVANCE DIRECTIVE DISCUSSION ADVANCE DIRECTIVE DISCUSSION [facility] Start: 02-05-2021 Influenza vaccination INFLUENZA (#1) [facility] Start: 10-08-2020 COVID-19 VACCINE (2 - Booster for Abdi series) COVID-19 VACCINE (2 - Booster for Abdi series) [facility] Start: 02-14-2020 Adult depression screening assessment DEPRESSION SCREENING [facility] Start: 08-09-2019 BP CONTROLLED (<130/80) BP CONTROLLED (<130/80) [facility] Start: 01-28-2014 FECAL OCCULT BLOOD FECAL OCCULT BLOOD [facility] Start: 2013 Abdominal aortic aneurysm screening ABDOMINAL AORTIC ANEURYSM HIGH RISK SCREEN [facility] Start: 2013 Pneumococcal vaccination PNEUMOCOCCAL VACCINE SERIES (1 - PCV) [facility] Start: 2008 RSV Vaccine (1 - 1-dose 60+ series) RSV Vaccine (1 - 1-dose 60+ series) [facility] Start: 1998 Prostate specific antigen measurement PROSTATE CANCER SCREENING DISCUSSION [facility] Start: 1998 SHINGRIX VACCINE (1 of 2) SHINGRIX VACCINE (1 of 2) [facility] Start: 1998 Zoster vaccine hzv live for subcutaneous use ZOSTER (SHINGLES) VACCINE (1 of 2) [facility] Start: 1993 COLOGUARD (FIT-DNA) COLOGUARD (FIT-DNA) [facility] Start: 1993 Colonoscopy COLORECTAL CANCER SCREENING DISCUSSION [facility] Start: [address] COLONOGRAPHY [facility] Start: 1993 Screening for malignant neoplasm of colon COLORECTAL CANCER SCREENING DISCUSSION [facility] Start: 1993 SIGMOIDOSCOPY SIGMOIDOSCOPY [facility] Start: 1988 Fasting lipid profile LIPID SCREENING [facility] Start: 1988 Lipid panel LIPID SCREENING [facility] Start: 1967 Third diphtheria, tetanus and acellular pertussis (DTaP) vaccination TDAP (ADULT) [facility] Start: 1966 Tetanus vaccination TETANUS [facility] Start: 1953 COVID-19 VACCINE (#1) COVID-19 VACCINE (#1) [facility] Start: 1953 COVID-19 VACCINE (1) COVID-19 VACCINE (1) [facility] Start: 01-30-1949 COVID-19 VACCINE (#1) COVID-19 VACCINE (#1) [facility] Start: 1948 Hepatitis C antibody, confirmatory test HEPATITIS C VIRUS SCREENING [facility] Start: 1948 Hepatitis C screening HEPATITIS C VIRUS SCREENING [facility] Binocular microscopy separate dx procedure NM EAR MICROSCOPY EXAMINATION NM Charge Routine Cholesteatoma, left Ordered: 09/16/2021 [facility] Comment on above: Ordered: 09/16/2021 Graft [...] [facility] Removal impacted cer umen instrumentation unilat NM REMOVAL IMPACTED CERUMEN INSTRUMENTATION UNILAT NM Charge Routine Impacted cerumen of right ear Ordered: 05/18/2023 [facility] Comment on above: Ordered: 05/18/2023 Tympanoplasty w/o mastoidec 1st/revj prosth torp TYMPANOPLASTY WITH OSSICULAR CHAIN RECONSTRUCTION 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 [facility] c Immunizations Immunization Date Immunization Notes Care Provider Fa cility 12-11-2021 hepatitis A vaccine, adult dosage Trent Kramer MD Work Phone: [facility] Work Phone: 12-11-2021 zoster vaccine recombinant Trent Kramer MD Work Phone: [facility] Work Phone: 09-25-2021 hepatitis B vaccine, adult dosage Trent Kramer MD Work Phone: [facility] Work Phone: 09-25-2021 pneumococcal conjuga te vaccine, 13 valent Trent Kramer MD Work Phone: [facility] Work Phone: 08-13-2020 COVID-19 vaccine (ABDI) Trent Kramer MD Work Phone: [facility] Work Phone: 06-28-2017 influenza virus vaccine, unspecified formulation Luba Tina [facility] 08-10-2015 tetanus and diphther ia toxoids, adsorbed, preservative free, for adult use (5 Lf of tetanus toxoid and 2 Lf of diphtheria toxoid) Trent Kramer MD Work Phone: [facility] 08-26-2007 hepatitis B vaccine, pediatric or pediatric/adolescent dosage Trent Kramer MD Work Phone: [facility] 06-14-2007 hepatitis A vaccine, unspecified formulation Trent Kramer MD Work Phone: [facility] 06-14-2007 hepatitis B vaccine, pediatric or pediatric/adolescent dosage Trent Kramer MD Work Phone: [facility] 04-07-2005 tetanus and diphther ia toxoids, adsorbed, preservative free, for adult use (2 Lf of tetanus toxoid and 2 Lf of diphtheria toxoid) Trent Kramer MD Work Phone: [facility] Work Phone: Payers Date Payer Category Payer Medicare [id number] 2024 Self-pay 2022 Medicare MEDICARE ANTHEM HMO OR PPO MEDICARE ANTHEM HMO OR PPO [id number] 2022-Present [address] [place] [address] [id number] 2022 Unknown [id number] 2021 Unknown [id number] 2020 Unknown AN[employer]M BLUE ACCE PPO [id number] 2020-Present [phone] [address] [place] [address] PPO [id number] 2020 Unknown [id number] 1948 Unknown [id number] 1948 Unknown [id number] 1948 Unknown [id number] 1948 Unknown [id number] 1948 Unknown [id number] 1948 Unknown [id number] Medicare MEDICARE PART A B [id number] Unknown [id number] Unknown [id number] Unknown [id number] Unknown [id number] Social History Date Type Detail Facility Start: 09-16-2021 End: 12-12-2024 Tobacco smoking status NHIS Never smoked tobacco [facility] Start: 05-12-2021 Alcohol intake Current drinke r of alcohol (finding) [facility] Start: 05-12-2021 End: 05-18-2023 Alcohol intake [facility] Start: 01-13-2012 History SDOH Alcohol Comment 1 glass of wine 1-2 times per month [facility] Start: 1950 Sex Assigned At Not on file C [facility] Start: 01-13-2012 End: 09-16-2021 Tobacco use and exposure Smokeless tobacco non-user [facility] Start: 03-05-2022 End: 05-18-2023 Alcohol intake Ex-drinker (finding) [facility] Start: 05-15-2022 End: 05-25-2022 Exposure to SARS-CoV-2 (event) Unable to assess [facility] Start: 05-12-2021 End: 05-18-2023 Tobacco use panel [facility] Adult Depression Screening Assessment 0 [facility] Start: 1950 Sex Assigned At Male W [facility] Tobacco smoking stat us NHIS Unknown if ever smoked [facility] Work Phone: Medical Equipment Procedure Code Equipment Code Equipment Origin al Text Equipment Identifier Dates Non-Reinforced Medical Grade Silcone Sheeting [id number] Start: 09-18-2021 Prosthesis Oss[place] ular 2-5.6mm 1.45mm [place] 1.5mm 2.5mm - [id number] Start: 03-05-2022 Clinical Notes 02-03-2010 to 12-12-2024 Gera Youngblood MD - 05/18/2023 9:00 AM Latasha Castañeda - 05/18/2023 8:30 AM [facility] NavigatorLuba - 04/20/2023 11:14 AM Kayla Youngblood MD - 05/25/2022 9:00 AM EST Note Date & Type Note Facility 12-12-2024 Progress note [facility] 11-29-2024 Radiology Diagnostic study note [facility] Imaging Services [address] [place], [place] [address] Testicular with Arterial Flow MR#: [id number] Acct: [id number] Name: YENI CAGE Rep #: [id number] : 1950 M 74 From: Teodoro Mishra MD PCP: Dr. Beny Franco MD Status: REG CLI Study:Testicular with Arterial Flow Date of E xam: 11/29/24 Exam# [id number] Ordering Dr: Corin Franco MD PROCEDURE: TESTICULAR WITH ARTERIAL FLOW 11/29/2024 REASON FOR EXAM: R TESTICULAR SWELLING FOR 6 MONTHS. SWELLING V HERNIA. TECHNIQUE: TESTICULAR WITH ARTERIAL FLOW COMPARISON: None FINDINGS: RIGHT testicle: 4.3 cm x 3.3 cm x 2.1 cm Right epididymis: 0.9 cm x 1.3 cm x 0.5 cm LEFT testicle: 4.3 cm x 3.3 cm x 2.5 cm Left epididymis: 1 cm x 1.1 cm x 0.9 cm Other findings: Moderate bilateral hydroceles. Incidental finding is made of right inguinal hernia extending to the right scrotum. US/Testicular with Arterial Flow IMPRESSION: Moderate bilateral hydroceles. Right scrotal hernia. Reading Location: [id number] CC: Dr. Beny Franco MD ~ Engineering Aide: Signed [facility] 05-18-2023 History of Present illness Narrative Images [...] adhesions-lysed. 4. Prior silastic removed. 2.5mm Centered [place] Bianca PORP placed with cartilage cap 5. [...] Surgery Department of Otolaryngology-Head and Neck Surgery [address] [place] [address], [address] & [address] [place] [address] documented in this encounter [facility] 05-18-2023 History of Present illness Narrative [...] with restricted hearing of right ear H90.A32 Ulysses Markham. Doctor of Audiology Department of Otolaryngology-Head and Neck Surgery [address] [place] [address], [address] [place] [address] documented in this encounter [facility] 04-21-2023 Note HNO ID: [id number] Author: Tina [facility] Luba Diaz Service: ? Author Type: ? Type: Progress Notes Filed: 04/21/2023 9:30 AM Note Text: POPULATION HEALTH NAVIGATION OUTREACH Action/I [place] med adherence Outcome- 2nd attempt- did not leave any message for 2nd attempt Patient Identified by Name and : NO Outreach Outcome/Action Unable to reach patient: no message left Did you use a PCP flex slot to schedule this appointment? N/A Navigation Signature: Luba Wilder Population Health Navigelvia April 21, 2023 9:28 AM [facility] 04-20-2023 Note Patient Outreach (NE TNAV) YENI CAGE ([id number]) 1950 M Date Time Provider Department 04/20/23 LUBA WILDER NETNAV During your visit today, we recorded the following information about you: Tina [facility] Luba Diaz 04/20/2023 11:16 AM Signed POPULATION HEALTH NAVIGATION OUTREACH Action/ [place] med adherence Outcome- lvm regarding reminder to refill medication lisinopril due in the [facility] portal. No mychart Will attempt callback Patient Identified by Name and : NO Outreach Outcome/Action Unable to reach patient: Left message Did you use a PCP flex slot to schedule this appointment? N/A Reason for Outreach Med Adherence Payer: Payor: ANTHEM BLUE CROSS AND BLUE SHIELD / Plan: ANTHEM MEDIBLUE ACCESS / Product [...] Vaccine(1) due on 02/05/2023 Covid-19 Vaccine(3 - season) due on 02/05/2023 Navigation Signature: Luba Wilder [facility] April 20, 2023 11:[address] [facility] Navigator Luba Fatmata 04/21/2023 9:30 AM Signed POPULATION HEALTH NAVIGATION OUTREACH Action/AMAN [place] med adherence Outcome- 2nd attempt- did not leave any message for 2nd attempt Patient Identified by Name and : NO Outreach Outcome/Action Unable to reach patient: no message left Did you use a PCP flex slot to schedule this appointment? N/A Navigation Signature: Luba Fatmata Escalanteon [facility] Navigator April 21, 2023 9:28 AM Allergies As of Date: 04/20/2023 (No Known Allergies) Date Reviewed: 05/12/2021 Reviewed by: Manjinder Woody Jr., MD - Fully Assessed Reason for Visit: Population Health Navigation Outreach [3910] Cmt: [place] med adherence Prescriptions as of 04/21/2023 - lisinopril-hydroCHLOROthiazide [...] TINA [facility] on 04/20/23 [facility] 04-20-2023 Note HNO ID: [id number] Author: Luba Delaney Service: ? Author Type: ? Type: Progress Notes Filed: 04/20/2023 11:16 AM Note Text: POPULATION HEALTH NAVIGATION OUTREACH Action/ [place] med adherence Outcome- lvm regarding reminder to refill medication lisinopril due in the [facility] portal. No mychart Will attempt callback Patient Identified by Name and : NO Outreach Outcome/Action Unable to reach patient: Left message Did you use a PCP flex slot to schedule this appointment? N/A Reason for Outreach Med Adherence Payer: Payor: JORGE LUIS [employer] [facility] / Plan: ANTHEM MEDIBLUE ACCESS / Product [...] 02/05/2023 Navigation Signature: Luba Wilder [facility] S[facility]a April 20, 2023 11:14 AM [facility] 04-20-2023 History of Present illness Narrative POPULATION HEALTH NAVIGATION OUTREACH Action/ [place] med adherence Outcome- lvm regarding reminder to refill medication lisinopril due in the [facility] portal. No mychart Will attempt callback Patient Identified by Name and : NO Outreach Outcome/Action Unable to reach patient: Left message Did you use a PCP flex slot to schedule this appointment? N/A Reason for Outreach Med Adherence Payer: Payor: JORGE LUIS [employer] / Plan: ANTHROSARIO MEDIBLUE ACCESS / Product Type: PPO / [...] 2023 11:14 AM documented in this encounter [facility] 01-12-2023 Note Patient Outreach (NE TNAV) YENI CAGE ([id number]) 1950 M Date Time Provider Department 01/12/23 RAGHAVENDRA SOOD ([facility]) RUTHANN During your visit today, we recorded the following information about you: Raghavendra Sood 01/12/2023 11:46 AM Signed POPULATION HEALTH NAVIGATION OUTREACH Action/I Past due for BP control, AD, wellness visit. LVM Patient Identified by Name and : NO Outreach Outcome/Action Unable to reach patient: Left message Did you use a PCP flex slot to schedule this appointment? N/A Reason for Outreach Care Gap or Scheduling/Wellness visits Payer: Payor: JORGE LUIS [employer] / Plan: JORGE LUIS MEDILARRYUE ACCESS / Product Type: PPO / Care [...] PCV20) due on 09/25/2022 Navigation Signature: Raghavendra Barrie January 12, 2023 11:45 AM Allergies As [...] Encounter Status:Closed by RAGHAVENDRA SOOD on 01/12/23 [facility] 01-12-2023 Note HNO ID: [id number] Author: Raghavendra Sood Service: ? Author Type: ? Type: Progress Notes Filed: 01/12/2023 11:46 AM Note Text: POPULATION HEALTH NAVIGATION OUTREACH Action/ Past due for BP control, AD, wellness visit. LVM Patient Identified by Name and : NO Outreach Outcome/Action Unable to reach patient: Left message Did you use a PCP flex slot to schedule this appointment? N/A Reason for Outreach Care Gap or Scheduling/Wellness visits Payer: Payor: JORGE LUIS [employer] / Plan: [place] ACCESS / Product Type: PPO / Care [...] Raghavendra Sood January 12, 2023 11:45 AM [facility] 10-28-2022 Note Patient Outreach ( POHE) YENI CAGE ([id number]) 1950 M Date Time Provider Department 10/28/22 TRENT KRAMER During your visit today, we recorded the following information about you: Faina Fair 10/28/2022 2:38 PM Addendum Yeni Cage is identified through a medication adherence outreach initiative based on pharmacy claims data from [employer] (insurer) for RACHEL medication(s). Patient is reviewed [...] new doctor about the medication Faina Fair [employer] Attendant Allergies As of Date: 10/28/2022 (No Known [...] Encounter Status:Closed by FAINA FAIR on 10/28/22 [facility] 10-28-2022 Note HNO ID: [id number] Author: Faina Fair Service: ? Author Type: ? Type: Progress Notes Filed: 10/28/2022 2:38 PM Note Text: Yeni Cage is identified through a medication adherence outreach initiative based on pharmacy claims data from [place] (insurer) for RACHEL medication(s). Patient is reviewed [...] the new doctor about the medication Faina [facility] 09-08-2022 Miscellaneous Notes Unable to reach [...] Miryam Glover APRN.CNP documented in this encounter [facility] 09-02-2022 Miscellaneous Notes Patient notified, verbalized understanding. Momo Sorensen Ma Fasting labs ordered Miryam Glover APRN.CNP Patient scheduled for Annual Medicare Wellness, 09/10/2022. Please put in Lab orders. Marry Luna LPN documented in this encounter [facility] 09-02-2022 Miscellaneous Notes Patient has been [...] patient. Kierra Lennon documented in this encounter [facility] 05-25-2022 History of Present illness Narrative Images from the original note were not included. Office Visit Note - 05/25/2022 Patient: YENI LIPSCOMBETLER Attending Physician: Gera Youngblood [...] Surgery Department of Otolaryngology-Head and Neck Surgery [address] [place] [address], [address] [place] [address] documented in this encounter [facility] 05-25-2022 History of Present illness Narrative Images from the original note were not included. Please see the scanned audiogram under the procedures tab in the chart review of IHIS. ICD-10-CM 1. Mixed hearing loss, bilateral H90.6 2. Tinnitus, left H93.12 documented in this encounter [facility] 03-24-2022 History of Present illness Narrative Images from the original note were not included. Postoperative Note History: Postoperative visit number 1 following Left Tympanoplasty with Ossicular chain reconstruction (2.5 mm Centered [place] PORP) on 03/05/22. INTRAOPERATIVE FINDINGS: 1. Transcanal approach 2. 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 3. Significant middle ear mucosal adhesions-lysed. 4. Prior silastic removed. 2.5mm Centered [place] PORP placed with cartilage cap 5. [...] Surgery Department of Otolaryngology-Head and Neck Surgery [address] [place] [address], [address] [place] [address] documented in this encounter [facility] 03-05-2022 Nurse Surgical operation note Summary: D/C Nursing Notes 1110 Discharge instructions and AVS given to patient and spouse. All questions answered. 1120 Pt ambulated to private vehicle with standby assistance. NO issues or concerns noted. [facility] 03-05-2022 Nurse Note Summary: D/C Nursi ng Notes 1110 Discharge instructions and AVS given to patient and spouse. All questions answered. 1120 Pt ambulated to private vehicle with standby assistance. NO issues or concerns noted. documented in this encounter [facility] 03-05-2022 Hospital Discharge instructions Jun Fregoso MD - 03/05/2022 9:46 AM EDT Stapedectomy / Ossicular Reconstruction / Middle Ear Exploration Post Operative Instructions Gera Youngblood M.D. Otology / Neurotology / Skull Base Surgery [address] [place] [address], [address] [place] [address] Office [phone] Fax This instruction sheet is designed to help you care for your ear following surgery, and to answer many of the commonly asked questions. Please read the entire sheet carefully. Don t hesitate to call our office [phone] if you have a questions or concern. [...] this appointment may be with your referring electric motor controls assembler, in which case, Dr. Youngblood will send a letter detailing your surgery and recommended follow-up care before you see the physician. Call office if: Increased pain not relieved by prescription medications. Large amounts of bleeding from the ear area. Pus/Foul smelling drainage from the ear. Redness in the ear area. Temperature over 100 on 2 consecutive readings. Severe dizziness. Important Phone Numbers [facility] [phone] Dr. [facility]blood s office - [facility] (follow-up appointments) [phone] Hospital Crusher Setter (after hours questions, ask for ENT resident tone artist apprentice) [facility] [phone] Crusher Setter (after hours questions, ask for ENT resident tone artist apprentice) [phone] Emergency Department (after hours emergency , only if no response from resident) documented in this encounter [facility] 03-05-2022 Note Formatting of this n ote might be different from the original. Yeni Cage ([id number]) PRE OPERATIVE DIAGNOSIS Mixed conductive and sensorineural [...] - Primary ANESTHESIOLOGIST Anesthesiologist: Manjinder Brito MD NURSES MEDICAL ASSISTANTS PHLEBOTOMISTS: Chelsey Rand, BETINA-NURSES MEDICAL ASSISTANTS PHLEBOTOMISTS SURGICAL STAFF Track Superintendent: John Alexander RN Scrub Person: Jessee Shipley Assisting: Jun Fregoso MD Fellow: Virgie Galdamez MD COMPLICATIONS None ESTIMATED BLOOD LOSS Minimal SPECIMENS No specimen sent * No specimens in log * Jun Fregoso MD March 05, 2022 9:44 AM [facility] 03-05-2022 Miscellaneous Notes Yeni Cage ([id number]) PRE OPERATIVE DIAGNOSIS Mixed conductive and sensorineural [...] - Primary ANESTHESIOLOGIST Anesthesiologist: Manjinder Brito MD NURSES MEDICAL ASSISTANTS PHLEBOTOMISTS: Chelsey Rand APRN-NURSES MEDICAL ASSISTANTS PHLEBOTOMISTS SURGICAL STAFF Track Superintendent: John Alexander RN Scrub Person: Jessee Shipley Assisting: Jun Fregoso MD Fellow: Virgie Galdamez MD COMPLICATIONS None ESTIMATED BLOOD LOSS Minimal SPECIMENS No specimen sent * No specimens in log * Jun Fregoso MD March 05, 2022 9:44 AM documented in this encounter [facility] 03-05-2022 History and physical note DARI-OPERATIVE [...] fully developed bilaterally Hearing: nrmal clinical speech campus receptionist threshold Neck Neck and Trachea: Midline trachea without mass or lesion Impression/Plan: [facility] History and physical note DARI-OPERATIVE HISTORY [...] fully developed bilaterally Hearing: nrmal clinical speech campus receptionist threshold Neck Neck and Trachea: Midline trachea without mass or lesion Impression/Plan: Proceed to OR as planned documented in this encounter [facility] 12-02-2021 History of Present illness Narrative Images from the original note were not included. Office Visit Note - 12/02/2021 Patient: YENI CAGE Attending Physician: Gera Youngblood [...] Surgery Department of Otolaryngology-Head and Neck Surgery [address] [place] [address], [address] [place] [address] documented in this encounter [facility] 12-02-2021 History of Present illness Narrative [...] H90.A32 Morris Oshea documented [facility] this [facility] History of Present illness Narrative Images [...] Surgery Department of Otolaryngology-Head and Neck Surgery [address] [place] [address], [address] [place], [place] [address] [place] [address] documented in this encounter [facility] 10-03-2021 Miscellaneous Notes Patient's called and notified that lab orders were placed. Clarisa Patino RN Ordered Miryam Glover APRN.CNP Patient's calls and states that [place] and can not find he cannot records of his MMR vaccination. Patient's asking if provider can write an order to get those titers checked? Please review and advise, Clarisa Patino RN documented in this encounter [facility] 09-18-2021 Miscellaneous Notes 1305-Pt to [facility], assessment completed, up to chair with call light in reach-BRITANY Reyna 1415-Discussed discharge instructions with patient and ; answered questions and concerns; verified pharmacy; removed IV-BRITANY Reyna 1434-Pt to front of via wheelchair to go [...] graft in an underlay fashion to the [place]ai-apache drum. After the middle ear was adequately packed, the graft and tympanomeatal flap were laid back down. The vascular strip was then laid back into its [place]apai-apache position. We turned our attention to closure. [...] of the procedure. documented in this encounter [facility] 09-18-2021 Note Formatting of this n ote might be different from the original. 1305-Pt to [facility], assessment completed, up to chair with call light in reach-BRITANY Reyna 1415-Discussed discharge instructions with patient and ; answered questions and concerns; verified pharmacy; removed IV-BRITANY Renya 1434-Pt to front of via wheelchair to go home-BRITANY Reyna [facility] 09-18-2021 Nurse Surgical operation note Report called to BRITANY Walsh. Pt to be transported to [facility] for preparation to be discharged to home. VSS. [facility] 09-18-2021 Nurse Note Report called to BRITANY Walsh. Pt to be transported to [facility] for preparation to be discharged to home. VSS. documented in this encounter [facility] 09-18-2021 Note Formatting of this n [...] graft in an underlay fashion to the [place]apai-apache drum. After the middle ear was adequately packed, the graft and tympanomeatal flap were laid back down. The vascular strip was then laid back into its [place]apai-apache position. We turned our attention to closure. [...] participated through the entirety of the procedure. [facility] Work Phone: 09-18-2021 Hospital Discharge instructions Joe Carranza MD - 09/18/2021 8:40 AM EDT CHRONIC EAR SURGERY (TYMPANOPLASTY / MASTOIDECTOMY) Post Operative Instructions Gera Youngblood M.D. Otology / Neurotology / Skull Base Surgery [address] [place] [address], [address] [place] [address] Office [phone] Fax This instruction sheet is designed to help you care for your ear following surgery, and to answer many of the commonly asked questions. Please read the entire sheet carefully. Don t hesitate to call our office [phone] if you have a questions or concern. [...] this appointment may be with your referring electric motor controls assembler, in which case, Dr. Youngblood will send a letter detailing your surgery and recommended follow-up care before you see the physician. Call office if: Increased pain not relieved by prescription medications. Large amounts of bleeding from the ear area. Pus/Foul smelling drainage from the ear. Redness in the ear area. Temperature over 100 on 2 consecutive readings. Severe dizziness. Important Phone Numbers [facility] [phone] Dr. Youngblood s office - [place] (follow-up appointments) [phone] Hospital Crusher Setter (after hours questions, ask for ENT resident tone artist apprentice) [facility] [phone] Crusher Setter (after hours questions, ask for ENT resident tone artist apprentice) [phone] Emergency Department (after hours emergency , only if no response from resident) documented in this encounter [facility] 09-[facility]21 History and physical note PERIOPERATIVE SURGICAL [...] by Joe Carranza MD, 09/18/2021, 6:54 AM. [facility] 09-18-2021 History and physical note PERIOPERATIVE [...] 09/18/2021, 6:54 AM. documented in this encounter [facility] 09-16-2021 History of Present illness Narrative [...] which demonstrated asymmetric L sided HL. Saw [facility] ENT who saw a cholesteatoma in left ear and referred to [facility]. No hx of chronic ear disease, no otorrhea, otalgia, or dizziness. Has hx of loud noise exposure through his job. No family hx of hearing loss, loud noise exposure, head trauma, or previous head and neck surgeries. Takes ASA81 due to family hx of NE but no personal cardiac hx. The past [...] Surgery Department of Otolaryngology-Head and Neck Surgery [address] [place] [address], [address] [place] [address] documented in this encounter [facility] 09-16-2021 History of Present illness Narrative Images from the original note were not included. ICD-10-CM 1. 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 Sensorineural hearing loss, unilateral H90.5 3. 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 KWASI: No Please approve the above prescription(s) to electronically send to pharmacy. Momo Sorensen Ma documented in this encounter [facility] 02-03-2010 History of Past i llness [...] of this encounter (statuses as of 09/02/2021) [facility] History of Past illness Narrative* Problem [...] of this encounter (statuses as of 10/03/2021) [facility] History of Past illness Narrative* Problem [...] of this encounter (statuses as of 09/02/2022) [facility] History of Past illness Narrative* Problem [...] of this encounter (statuses as of 09/02/2022) [facility] of Past illness Narrative* Problem [...] of this encounter (statuses as of 09/09/2022) [facility] of Past illness Narrative* Problem [...] of this encounter (statuses as of 04/20/2023) [facility] note* Diagnosis Mixed hearing loss, unilateral- Primary Sensorineural hearing loss, unilateral Cholesteatoma of attic of ear, left Cholesteatoma, left documented in this encounter [facility] note* Diagnosis Cholesteatoma, left- Primary Chronic atticoantral suppurative otitis media of left ear Chronic atticoantral suppurative otitis media Mixed conductive and sensorineural hearing loss of left ear with restricted hearing of right ear Cholesteatoma, left [facility] Diagnosis Cholesteatoma, left- Primary documented in this encounter [facility] note* Diagnosis Immunity status testing- Primary Antibody response examination documented in this encounter [facility] note* Diagnosis Cholesteatoma, left- Primary Chronic atticoantral suppurative otitis media of left ear Chronic atticoantral suppurative otitis media Mixed conductive and sensorineural hearing loss of left ear with restricted hearing of right ear [facility] Diagnosis Sensorineural hearing loss (SNHL) of right ear with restricted hearing of left ear- Primary Mixed conductive and sensorineural hearing loss of left ear with restricted hearing of right ear [facility] Diagnosis Mixed conductive and sensorineural hearing loss of left ear with restricted hearing of right ear- Primary Partial necrosis of left ear ossicles [facility] Diagnosis Mixed conductive and sensorineural hearing loss of left ear with restricted hearing of right ear- Primary [facility] Diagnosis 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 Mixed conductive and sensorineural hearing loss of left ear with restricted hearing of right ear [facility] Diagnosis Cholesteatoma, left- Primary 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 [facility] Diagnosis Mixed hearing loss, bilateral- Primary Tinnitus, left Unspecified tinnitus [facility] Diagnosis Primary hypertension- Primary Unspecified essential hypertension Impaired fasting glucose Screening for prostate cancer Special screening for malignant neoplasm of prostate [facility] Phone: Evaluation note* Diagnosis Tinnitus, left- Primary Unspecified tinnitus Sensorineural hearing loss (SNHL) of right ear with restricted hearing of left ear Mixed conductive and sensorineural hearing loss of left ear with restricted hearing of right ear [facility] Diagnosis Impacted cerumen of right ear- Primary Impacted cerumen 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 Retraction of tympanic membrane of left ear [facility] Diagnosis Onset Date Resolution Status Admit Date Inguinal hernia, right acute Ju ly 2024 8:23am [facility] Work Phone: Progress note Author Alberto Trevino [facility] Note Date/Time December 12, 2024 8:48a m [facility] [address] [place] [address]. [address] [place] [address] OFFICE VISIT Date of Service: 12/12/24 MR#: [id number] Acct: [id number] Name: YENI CAGE Rep #: [id number] : 1950 Provider: Dr. Kamryn Trevino MD Age/Sex: 74/M Location: [facility] Status: Signed Intake Vital Signs 12/12/24 08:41 Height 5 ft 7 in Weight: 186 lb BMI 29.1 BP 156/52 H Blood Pressure Location Rt brachial Position Sitting Respiration 18 Pulse 75 Pulse Source Monitor Pulse Oximetry (%) 96 Oxygen Delivery Method room air Intake Visit Reasons: INGUINAL HERNIA Chief Complaint: inguinal hernia Is patient in pain?: No Allergies No Known Allergies Allergy (Verified 12/12/24 08:43) Medications ?Medication ?Instructions ?Recorded ?Confirmed ?Type aspirin 81 mg tablet 81 mg PO QDAY 12/12/2412/12 History lisinopril 20 1 tab PO QDAY 12/12/2412/12 History mg-hydrochlorothiazide 12.5 mg tablet omeprazole 20 mg capsule,delayed 20 mg PO QDAY 5 12/12/24 History release Have you fallen in the past year?: No PFSH Medical History (Updated 12/12/24 @ 08:40 by Aracelis Powell) Sleep apnea Acid reflux Arthritis HTN (hypertension) Surgical History (Updated 12/12/24 @ 08:40 by Aracelis Powell) H/O bilateral cataract extraction History of bilateral knee replacement Family History (Updated 12/12/24 @ 08:41 by Aracelis Powell) Brother Cancer esophagus/lung Brother Heart disease Sister Heart disease Social History (Updated 12/12/24 @ 08:41 by Aracelis Powell) Smoking Status: Never smoker alcohol intake: current alcohol intake frequency: holidays/special occasions only HPI HPI HPI: Patient is a 74-year-old male with right groin bulging. He says has been going on for several years. He reports that laying down it goes away. He is not having any pain or discomfort. He denies nausea or vomiting or fevers or chills. ROS General General: No weight change, appetite, fatigue, colon cancer, breast cancer or weakness HEENT HEENT: Yes eye surgery; No difficulty swallowing, eye injury, swollen glands or hoarseness Endo Endocrine: No thyroid disease, diabetes mellitus, thyroid cancer, Hair loss, heat intolerance or cold intolerance Skin Skin: No rash or changing moles Musc Musculoskeletal: Yes arthritis; No back problems, rheumatoid arthritis, gout or joint pain Cardio Cardiovascular: Yes high blood pressure; No murmur, pacemaker, heart disease, atrial fibrillation, heart attack, heart stent, palpitations, shortness of breath with exertion or chest pain Psych Psychiatric: No depression, anxiety or hearing voices Resp Respiratory: No shortness of breath, Yes sleep apnea, No cough, No COPD, No asthma, No emphysema and No wheezing Additional Details: c-pap Gastro Gastrointestinal: No abdominal pain, No nausea or vomiting, No diarrhea, No constipation, No blood in stool, Yes acid reflux, No hemorrhoids, No ulcers, No gallbladder problem and No black,tarry stools Parvez Hematologic: No blood thinners, No blood disorders, No bleeding, No anemia and No blood clots Neuro Neurologic: No system reviewed and no additional complaints, except as documented, No as per HPI, No abnormal gait, No abnormal hearing, No abnormal movements, No abnormal speech, No behavioral changes, No burning sensations, No confusion, No convulsions, No disequilibrium, No dizziness, No localized weakness, No frequent falls, No headache(s), No lack of coordination, No loss ofvision, No memory loss, No numbness, No other visual disturbances, No radicular pain, No restless legs, No sensory deficit, No syncope, Yes tingling, No tremor(s), No weakness and No other Exam Const General: cooperative Orientation: alert and oriented x3 HENMT Head: normal to inspection Neck Neck: normal visual inspection and full ROM Chest Chest palpation & inspection: normal inspection of the chest Resp Effort & Inspection: normal respiratory effort Auscultation: clear to auscultation bilaterally Cardio Rate: regular rate Rhythm: regular rhythm GI Inspection: non-distended Palpation: soft, hernia indirect inguinal on the right and nontender Skin General: no rashes or lesions noted Neuro General: patient alert and patient oriented x3 Extrem General: full ROM Psych Appearance: grossly normal Mental Status: mental status grossly normal Assessment and Plan Assessment and Plan (1) Inguinal hernia, right: Status: Acute Plan: Patient has a right inguinal hernia which is quite large. It is reducible. I discussed robotic assisted laparoscopic inguinal hernia repair with mesh. I discussed the procedure in detail as well as the risks including but not limitedto bleeding, infection, injury to other organ such as the testicle or blood supply to the testicle, bladder, bowel. Patient understands the risks and is willing to proceed. Patient will hold his aspirin for 5 days prior to surgery. Alberto Trevino MD Pager: [facility] [address] [place] [address], [address] [place] [address] Office: Coding Level of Care Code Off vis,new,level 3 Diagnoses Inguinal hernia, right K40.90 Clinical Quality Measures Falls Risk Screening/Assistive Devices Have you fallen in the past year?: No 12/12/24 0848 <Electronically signed by Alberto andrews MD> Date _ Alberto Trevino MD [facility] Signature: Date (if applicable) CC: Dr. Beny Franco MD ~ [facility] Work Phone: Reason for referral (narrative)No reason for referral information availableWSelect [facility] Work Phone: Reason for visit Narrative* Auth/Cert Specialty Diagnoses / Procedures Referred By Jesika jo Referred To Contact Diagnoses Cholesteatoma, left Cholesteatoma, left [H71.92] Procedures NM TYMPANOPLAS/MASTOID,INTCT WALL,REBLD NM MICROSURG TECHNIQUES,REQ OPER MICROSCOPE TYMPANOPLASY MASTOIDECTOMY INTACT OR RECONSTRUCTED CANAL WALL WITH OSSICULAR CHAIN RECONSTRUCTION MICROSURGICAL TECHNIQUES W/ OPERATING MICROSCOPE ADD-ON PX Referral ID Status Reason Start Date Expiration Date Visits Re quested Visits Author[facility] [id number] [facility] Auth/Cert Specialty Diagnoses / Procedures Referred By Jesika jo Referred To Contact Diagnoses 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 Mixed conductive and sensorineural hearing loss of left ear with restricted hearing of right ear [H90.A32] 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] Procedures NM TYMPANOPLASTY,REBLD OSSIC CHAIN+PROS NM EAR CARTILAGE GRAFT TO FACE NM GRAFTING OF AUTOLOGOUS SOFT TISS BY DIRECT EXC TYMPANOPLASTY WITH OSSICULAR CHAIN RECONSTRUCTION GRAFTING EAR CARTILAGE TO NOSE EAR GRAFT AUTO SOFT TISSUE BY DIRECT EXCISION Gera Youngblood MD [address] [facility] [address] [place] [address] [facility] [address] [place] [address] Referral ID Status Reason Start Date Expiration Date Visits Re quested Visits Authorized [id number] 1 1 [facility] Summary Purpose Family History No Family History Records Found Relationship Condition Age at Onset Recorded Date/T efrain brother Malignant neoplasm Unknown brother Cardiac disease Unknown sister Cardiac disease Unknown Advance Directives No Advanced Directives Records FoundDocuments on File Type Date Recorded Patient Waiter/Waitress Club Expl anation Advance Directive(s) 09/02/2020 12:50 PM [...] left Procedures CT TEMPORAL BONES WITHOUT CONTRAST NM CT SCAN,ORBIT/SELLA/POST FOSSA/EAR,W/O Gera Youngblood MD [address] [place] [phone] Referral ID Status Reason Start Date Expiration Date V isits Requested Visits Authorized [id number] New Request 09/16/2021 10/11/2022 1 1 Specialty Diagnoses / Procedures Referred By Contac t Referred To Contact Procedures NO MECHANICAL DVT PROPHYLAXIS Gera Youngblood MD [address] [place] [phone] Referral ID Status Reason Start Date Expiration Date V isits Requested Visits Authorized [id number] New Request 09/18/2021 10/13/2022 1 1 Specialty Diagnoses / Procedures Referred By Contac t Referred To Contact Procedures LOW RISK - NO PHARMACOLOGICAL DVT PROPHYLAXIS Gera Youngblood MD [address] [facility] [address] [place] [address] Referral ID Status Reason Start Date Expiration Date V isits Requested Visits Authorized [id number] New Request 09/18/2021 10/13/2022 1 1 Specialty Diagnoses / Procedures Referred By Contac t Referred To Contact Procedures DVT/VTE RISK ASSESSMENT Gera Youngblood MD [address] [facility] [address] [place] [address] Referral ID Status Reason Start Date Expiration Date V isits Requested Visits Authorized [id number] New Request 09/18/2021 10/13/2022 1 1 Chief Complaint and Reason for Visit Chief Complaint PREOP, RT KNEE *MICHELLE * PREOP Chief Complaint Admit Date R testicular swelling for 6 months. swel ling v her November 29, 2024 7:18am Chief Complaint Admit Date R testicular swelling for 6 months. swel ling v her November 29, 2024 7:18am INGUINAL HERNIA December 12, 2024 8:23a m Reason for Visit Admit Date Inguinal hernia, right December 12, 2024 8: 23am Additional Source Comments (unrecognized sect ion and content) No Status Records FoundNo Status Records FoundNo Status Records FoundNo Status Records Found INFORMATION SOURCE (unrecogn ized section and content) DATE CREATED AUTHOR 08/21/[address] [facility] DATE CREATED AUTHOR AUTHOR'S ORGANIZ ATION 04/21/2023 [facility] DATE CREATED AUTHOR AUTHOR'S ORGANIZ ATION 05/20/2023 [facility] DATE CREATED AUTHOR AUTHOR'S ORGANIZ ATION 01/28/2025 [facility] Source Comments (unrecognize d section and content) In the event this informatio n is protected by the Federal Confidentiality of Alcohol and Drug Abuse Patient Records regulations: The Federal rules restrict any use of the information to criminally investigate or prosecute any alcohol or drug abuse patient.[facility] the event this information is protected by the Federal Confidentiality of Alcohol and Drug Abuse Patient Records regulations: The Federal rules restrict any use of the information to criminally investigate or prosecute any alcohol or drug abuse patient.[facility] Hospital[facility] the event this information is protected by the Federal Confidentiality of Alcohol and Drug Abuse Patient Records regulations: The Federal rules restrict any use of the information to criminally investigate or prosecute any alcohol or drug abuse patient.[facility] HospitalIn the event this information is protected by the Federal Confidentiality of Alcohol and Drug Abuse Patient Records regulations: The Federal rules restrict any use of the information to criminally investigate or prosecute any alcohol or drug abuse patient.[facility] Hospital[facility] the event this information is protected by the Federal Confidentiality of Alcohol and Drug Abuse Patient Records regulations: The Federal rules restrict any use of the information to criminally investigate or prosecute any alcohol or drug abuse patient.[facility] HospitalIn the event this information is protected by the Federal Confidentiality of Alcohol and Drug Abuse Patient Records regulations: The Federal rules restrict any use of the information to criminally investigate or prosecute any alcohol or drug abuse patient.[facility] Reason for Visit (unrecogniz ed section and content) Reason Comments Prescription Refills Reason Comments Hearing Problem Specialty Diagnoses / Procedures Referred By Jesika t Referred To Contact Otolaryngology Diagnoses Cholesteatoma of attic of ear, left Mario Miles MD [address] [place] [address] Gera Youngblood MD [address] [facility] [address] [place] [address] Referral ID Status Reason Start Date Expiration Date V isits Requested Visits Authorized [id number] New Request 06/09/2021 07/04/2022 1 1 Reason [...] Date Comments Population Health Navigation Outreach 04/20/2023 [place] med adherence Reason Comments Follow-up Patient here for fol low up. Care Teams (unrecognized sec tion and content) Automotive Manager Relationship Specialty Start Date End Date Trent Kramer MD [address] [facility], [place] [phone] PCP - General 10/02/09 Automotive Manager Relationship Specialty Start Date End Date Trent Kramer MD [address] [place] [address] PCP - General Internal Medicine 09/18/21 Automotive Manager Relationship Specialty Start Date End Date Trent Kramer MD [address] [place], [place] [phone] PCP - General 10/02/09 Automotive Manager Relationship Specialty Start Date End Date Trent Kramer MD [address] [place] [phone] PCP - General Internal Medicine 09/18/21 Automotive Manager Relationship Specialty Start Date End Date Trent Kramer MD [address] [place] [phone] PCP - General Internal Medicine 09/18/21 Automotive Manager Relationship Specialty Start Date End Date Trent Kramer MD [address] [place] [address] PCP - General Internal Medicine 09/18/21 Automotive Manager Relationship Specialty Start Date End Date Trent Kramer MD [address] [place] [address] PCP - General Internal Medicine 09/18/21 Automotive Manager Relationship Specialty Start Date End Date Trent Kramer MD [address] [facility] [place] [address] PCP - General Internal Medicine 09/18/21 Automotive Manager Relationship Specialty Start Date End Date Trent Kramer MD [address] [place] [address] PCP - General 10/02/09 Automotive Manager Relationship Specialty Start Date End Date Trent Kramer MD [address] [place] [address] PCP - General 10/02/09 Automotive Manager Relationship Specialty Start Date End Date Trent Kramer MD [address] [place] [address] PCP - General 10/02/09 Automotive Manager Relationship Specialty Start Date End Date Trent Kramer MD [address] [place] [address] PCP - General 10/02/09 Team Status: Active Member Role Status Dates Dr. Alex Franco MD Primary Care Provider Activ e Team Status: Inactive Member Role Status Dates Dr. Alex Franco MD Primary Care Provider, Atte neing Provider Active Automotive Manager Relationship Specialty Start Date End Date Trent Kramer MD [address] [facility] [place] [address] PCP - General Internal Medicine 09/18/21 Automotive Manager Relationship Specialty Start Date End Date Trent Kramer MD [address] [facility] [place] [address] PCP - General Internal Medicine 09/18/21 Team [...] Mac Madrigal MD Attending Provider, Referring P nhanvider Active Justin CONCEPCION PA-C Other Provider Active Team Status: Active Member Role/Relationship Status Dates Dr. Beny Franco MD Primary Care Provider Acti ve Team Status: Inactive Member Role/Relationship Status Dates Dr. Beny Franco MD Primary Care Provider Acti ve Start: November 29, 2024 End: November 29, 2024 Dr. Beny Franco MD Attending Provider Active Start: November 29, 2024 End: November 29, 2024 Dr. Beny Franco MD Referring Provider Active Start: November 29, 2024 End: November 29, 2024 Team Status: Inactive Member Role/Relationship Status Dates Dr. Beny Franco MD Primary Care Provider Acti ve Start: December 12, 2024 End: December 12, 2024 Dr. Beny Franco MD Referring Provider Active Start: December 12, 2024 End: December 12, 2024 Dr. Alberto Trevino MD Attending Provider Active Start: December 12, 2024 End: December 12, 2024 Scheduled Active and Recently Administ ered Medications (unrecognized section and content) Medication Order 09/16/2021 09/17/2021 09/18/2021 ciprofloxacin-dexamethasone (CIPRODEX) otic suspension 4 drop 4 drop, Left Ear, INTRA-OP ONCE, Starting on Wed09/18/21 at 0755, Until Ananya 09/18/21 at 1635, [...] Comment: Switch to gravity)1142 (Restarted - Provider: RONALDO Bentley)1415 (Stopped - Provider: Jillian Sweeney RN) [...] 2 g, Intravenous, Administer over 30 Minutes, ARTS AND CRAFTS TEACHER TO PROCEDURE, 1 dose, Starting on Ananya 09/18/21 at 0649, Until Discontinued, Other, Surgical Prophylaxis, Initiate antibiotic administration 30-60 minutes prior to surgical incision and complete administration prior to surgical incision., Pre-op/Pre-Proc 0910 (Given - Provid er: Aurora Neal, HOSPITAL MORTICIAN-NURSES MEDICAL ASSISTANTS PHLEBOTOMISTS) ciprofloxacin-dexamethasone (CIPRODEX) otic suspension (CANCELED) NEEDED, Starting [...] MD - Comment: Surgical Site irrigation) lidocaine-epinephrine 1%-1:790710 injection (CANCELED) NEEDED, Starting on Ananya 09/18/21 [...] 2 g, Intravenous, Administer over 30 Minutes, ARTS AND CRAFTS TEACHER TO PROCEDURE, 1 dose, Starting on Ananya 03/05/22 at 0708, Until Ananya 03/05/22 at 0809, Other, tone artist apprentice to OR, Pre-op/Pre-Proc 0809 (Given - Provid [...] - Provid er: Karen Rizo RN) lidocaine-epinephrine 1%-1:402436 injection (CANCELED) NEEDED, Starting on Ananya 03/05/22 at 0817, Until Ananya 03/05/22 at 0953, Intra-op/Intra-Proc 0817 (Given - Provid er: Gera Youngblood MD)0825 (Given - Provider: Virgie Galdamez MD) [...] sectionGoals may be documented in an alternate sectionGoals may be documented in an alternate sectionGoals may be documented in an [...] BE BASED ON THE PRIMARY CLINICAL RECORDS. [employer] [facility]. provides no warranty or guarantee of the accuracy or completeness of information in this document.
[2025-01-29] MEDS: Lactated Ringers 1,000 ML 15 ML IV ×2 (06:22→09:14)
--- NOTE | 2025-01-29 06:49 | PRE.ANES_ITS ---
ASA Classification* ASA Classification ASA Classification: 3 Assessment & Plan Anesthesia* Anesthesia Assessment Anesthesia Assessment: Discussed sedation and/or anesthesia options, risks, benefits, and alternatives with patient/parents/legal guardian/POA. Questions invited. The patient/parents/legal guardian/POA seems to understand and agrees to proceed with anesthesia plan. Reviewed the physical assessment, medical history, allergy history and patient home medications list prior to surgery/procedure/anesthetic and documented any changes. Performed airway and anesthesia risk assessments. Anesthesia Type Anesthesia Type: General History Source History Obtained from:: Chart Anesthesia Focused Assessment* Temperature: 98.5 F Pulse Rate: 65 Blood Pressure: 147/88 Respiratory Rate: 16 Pulse Ox: 99 Oxygen Delivery Method: Room Air Airway Assessment Mouth opens: 2 cm Mallampati Score: III Teeth Condition: Intact Neck Range of motion (ROM): Full ROM Labs Anesthesia Preop lab: CBC WBC 4.8 K/mm3 (4.4-11.0) 01/25/24 09:25 01/25/24 RBC 3.50 M/mm3 (4.6-6.2) L 01/25/24 09:25 01/25/24 Hgb 10.0 g/dL (13.0-16.5) L 01/25/24 09:25 4 Hct 31.6 % (40-54) L 01/25/24 09:25 01/25/24 Plt Count 290 K/mm3 (150-450) 01/25/24 09:25 01/25/24 CHEMISTRY Potassium 4.4 mmol/L (3.3-5.1) 01/18/25 07:20 01/18/25 Sodium 136 mmol/L (133-145) 01/18/25 07:20 01/18/25 BUN 21 mg/dL (4-19) H 01/18/25 07:20 01/18/25 Creatinine 0.84 mg/dL (0.70-1.20) 01/18/25 07:20 01/18/25 Glucose 120 mg/dL (70-99) H 01/18/25 07:20 01/18/25 COAG Pre-Assessment Diagnosis/Proposed Procedure Planned Operative Procedure(s): R) Lap Robotic Inguinal Hernia w/mesh Anesthesia History Anesthesia History - production support analyst: Anesthesia History - production support analyst Hx Hospitalization No 01/15/25 09:01 Any Problems With Anesthesia No 01/15/25 09:01 Cholinesterase deficiency No 01/15/25 09:01 You/Your Family Experience No 01/15/25 09:01 fever (hyperthermia) with Relationship Recent Exposure to Contagious No 01/29/25 06:14 Disease Does patient have nerve No 01/15/25 09:01 stimulator Patient instructed to have device shut off --Does patient have Pacemaker No 01/29/25 06:14 or ICD? When Was Last Pacemaker Check QUESTION #4 FULL TEXT: You/Your Family Experience fever (hyperthermia) with Anesthesia Last Oral Intake Last Oral intake: Last Oral Intake NPO since 21:00 01/29/25 06:14 Meds taken in AM with sips of water? Meds patient instructed to take am of surgery PONV PONV - production support analyst: PONV - production support analyst Female No 01/15/25 09:01 HX of Motion Sickness No 01/15/25 09:01 HX of N/V After Surgery No 01/15/25 09:01 Non-Smoker Yes 01/15/25 09:01 Duration of Surgery greater Yes 01/15/25 09:01 than 60 minutes Number of Risk Factors 2 01/15/25 09:01 PONV Score Moderate Risk 01/15/25 09:01 Height & Weight Height & Weight: Anesthesia: Height & Weight Height 5 ft 7 in 01/29/25 06:14 Weight: 83.915 kg 01/29/25 06:14 Body Mass Index (BMI) 29.0 01/29/25 06:14 Respiratory Assessment Respiratory Assessment - production support analyst: Respiratory Tract Infection Hx - production support analyst Hx Respiratory Tract Infection No 01/15/25 09:01 STOP Sleep Apnea STOP Sleep Apnea - production support analyst: STOP Sleep Apnea - production support analyst Hx Hypertension Yes 01/15/25 09:01 Hx Sleep Apnea Yes 01/15/25 09:01 CPAP Yes 01/15/25 09:01 BIPAP No 01/15/25 09:01 Do you snore loudly (louder than talking or can be heard Do you often feel tired/ fatigued/ sleepy during daytime? Has anyone observed you stop breathing during sleep? STOP Results Positive 01/15/25 09:01 QUESTION #5 FULL TEXT : Do you snore loudly (louder than talking or can be heard through closed doors)? Tobacco Use History Tobacco Use History - production support analyst: Tobacco Use History - production support analyst Tobacco Use Smoking Status Never smoker 01/15/25 09:01 Hx Tobacco Use No 01/15/25 09:01 Years Smoking Packs Smoked per Day Smoking Cessation Date was within the last 15 years Hx Smoking Cessation Date Hx Smoking Cessation Counseling Hematologic Medial History Hematologic Hx - production support analyst: Hematologic Medical Hx - pocket setter Hx of Blood Transfusion No 01/15/25 09:01 Hx of Transfusion in last 3 No 01/15/25 09:01 Months Date of Last Transfusion (if within last 3 months) Ever experience any problems No 01/15/25 09:01 with transfusion(s)? Specify any problems Hx of Preganancy in last 3 N/A 01/15/25 09:01 Months Nurse Filling Out Transfusion JZOLLINGE 01/15/25 09:01 & Questions: Date: 01/15/25 01/15/25 09:01 Time: 09:03 01/15/25 09:01 Patient unable to answer at this time (ie. confused, unrespo /Reproduction History /Reproductive History - production support analyst: /Reproductive Hx- production support analyst Hx Now No 01/15/25 09:01 Gestational Age (in weeks): EDC: Hx Hx Para Hx Section SAB No 01/15/25 09:01 Active Medications Active Medications: Current Medications Generic Name Dose Route Start Last Admin Trade Name Freq PRN Reason Stop Dose Admin Cefazolin Sodium 2 gm/ Sodium 110 mls @ 200 mls/hr 01/29/25 08:00 Chloride IV 01/29/25 08:32 INTRAOP ONE Lactated Ringer's 1,000 mls @ 15 mls/hr 01/29/25 06:15 01/29/25 06:22 IV 15 mls/hr .Q48H MADDY Administration PFSH Medical History (Updated 01/15/25 @ 09:01 by Ifrah Luna) Wears hearing aid Loss of hearing Wears glasses Anxiety Non-smoker CPAP (continuous positive airway pressure) dependence Sleep apnea Acid reflux Arthritis HTN (hypertension) Home Medications ?Medication ?Instructions ?Recorded ?Last Taken ?Type aspirin 81 mg tablet 81 mg PO QDAY 12/12/2401/23 History lisinopril 20 1 tab PO QDAY 12/12/2401/28 History mg-hydrochlorothiazide 12.5 mg tablet omeprazole 20 mg capsule,delayed 20 mg PO QDAY 5 01/28/25 History release multivitamin 1 tab PO DAILY 01/15/2501/06 History Allergy/AdvReac Type Severity Reaction Status Date / Time No Known Allergies Allergy Verified 01/29/25 06:13 Family History (Updated 12/12/24 @ 08:41 by Aracelis Powell) Brother Cancer esophagus/lung Brother Heart disease Sister Heart disease Surgical History (Updated 01/15/25 @ 09:01 by Ifrah Luna) Hx of colonoscopy H/O bilateral cataract extraction History of bilateral knee replacement Social History (Updated 12/12/24 @ 08:41 by Aracelis Powell) Smoking Status: Never smoker alcohol intake: current alcohol intake frequency: holidays/special occasions only Review of Systems (Anesthesia) ROS Narrative System reviewed and no additional complaints, except as documented. Physical Exam Const alert and oriented x3 Orientation / Consciousness: awake Resp normal respiratory effort and normal air movement Cardio regular rate and regular rhythm
--- NOTE | 2025-01-29 06:58 | HP.PCM_ITS ---
History and Physical Date of Admission: 01/29/25 Intake Vital Signs 12/13/2507:41 Height 5 ft 7 in Weight: 186 lb BMI 29.1 BP 156/52 H Blood Pressure Location Rt brachial Position Sitting Respiration 18 Pulse 75 Pulse Source Monitor Pulse Oximetry (%) 96 Oxygen Delivery Method room air Intake Visit Reasons: INGUINAL HERNIA Chief Complaint: inguinal hernia Is patient in pain?: No Allergies No Known Allergies Allergy (Verified 12/12/24 08:43) Medications ?Medication ?Instructions ?Recorded ?Confirmed ?Type aspirin 81 mg tablet 81 mg PO QDAY 12/12/24 12/12/24 History lisinopril 20 1 tab PO QDAY 12/12/24 12/12/24 History mg-hydrochlorothiazide 12.5 mg tablet omeprazole 20 mg capsule,delayed 20 mg PO QDAY 12/12/24 12/12/24 History release Have you fallen in the past year?: No PFSH Medical History (Updated 12/12/24 @ 08:40 by Aracelis Powell) Sleep apnea Acid reflux Arthritis HTN (hypertension) Surgical History (Updated 12/12/24 @ 08:40 by Aracelis Powell) H/O bilateral cataract extraction History of bilateral knee replacement Family History (Updated 12/12/24 @ 08:41 by Aracelis Powell) Brother Cancer esophagus/lungBrother Heart diseaseSister Heart disease Social History (Updated 12/12/24 @ 08:41 by Aracelis Powell) Smoking Status: Never smoker alcohol intake: current alcohol intake frequency: holidays/special occasions only HPI HPI HPI: Patient is a 74-year-old male with right groin bulging. He says has been going on for several years. He reports that laying down it goes away. He is not having any pain or discomfort. He denies nausea or vomiting or fevers or chills. ROS General General: No weight change, appetite, fatigue, colon cancer, breast cancer or weakness HEENT HEENT: Yes eye surgery; No difficulty swallowing, eye injury, swollen glands or hoarseness Endo Endocrine: No thyroid disease, diabetes mellitus, thyroid cancer, Hair loss, heat intolerance or cold intolerance Skin Skin: No rash or changing moles Musc Musculoskeletal: Yes arthritis; No back problems, rheumatoid arthritis, gout or joint pain Cardio Cardiovascular: Yes high blood pressure; No murmur, pacemaker, heart disease, atrial fibrillation, heart attack, heart stent, palpitations, shortness of breath with exertion or chest pain Psych Psychiatric: No depression, anxiety or hearing voices Resp Respiratory: No shortness of breath, Yes sleep apnea, No cough, No COPD, No asthma, No emphysema and No wheezing Additional Details: c-pap Gastro Gastrointestinal: No abdominal pain, No nausea or vomiting, No diarrhea, No constipation, No blood in stool, Yes acid reflux, No hemorrhoids, No ulcers, No gallbladder problem and No black,tarry stools Parvez Hematologic: No blood thinners, No blood disorders, No bleeding, No anemia and No blood clots Neuro Neurologic: No system reviewed and no additional complaints, except as documented, No as per HPI, No abnormal gait, No abnormal hearing, No abnormal movements, No abnormal speech, No behavioral changes, No burning sensations, No confusion, No convulsions, No disequilibrium, No dizziness, No localized weakness, No frequent falls, No headache(s), No lack of coordination, No loss of vision, No memory loss, No numbness, No other visual disturbances, No radicular pain, No restless legs, No sensory deficit, No syncope, Yes tingling, No tremor(s), No weakness and No other Exam Const General: cooperative Orientation: alert and oriented x3 HENMT Head: normal to inspection Neck Neck: normal visual inspection and full ROM Chest Chest palpation & inspection: normal inspection of the chest Resp Effort & Inspection: normal respiratory effort Auscultation: clear to auscultation bilaterally Cardio Rate: regular rate Rhythm: regular rhythm GI Inspection: non-distended Palpation: soft, hernia indirect inguinal on the right and nontender Skin General: no rashes or lesions noted Neuro General: patient alert and patient oriented x3 Extrem General: full ROM Psych Appearance: grossly normal Mental Status: mental status grossly normal Assessment and Plan Assessment and Plan (1) Inguinal hernia, right: Status: Acute Plan: Patient has a right inguinal hernia which is quite large. It is reducible. I discussed robotic assisted laparoscopic inguinal hernia repair with mesh. I discussed the procedure in detail as well as the risks including but not limited to bleeding, infection, injury to other organ such as the testicle or blood supply to the testicle, bladder, bowel. Patient understands the risks and is willing to proceed. Patient will hold his aspirin for 5 days prior to surgery. Alberto Trevino MD Pager: [facility] [address] [place] [address], [address] [place] [address] Office: I have seen and reexamined the patient and reviewed the H&P. There are no clinical changes
[2025-01-29] MEDS: Cefazolin 1 GM/5 ML Vial 2 GM IV (07:29)
[2025-01-29] MEDS: Lactated Ringers 1,000 ML 1000 ML IV (07:29)
[2025-01-29] MEDS: Lidocaine 1% (5 ml sdv) 5 ML Vial 3 ML IV (07:35)
[2025-01-29] MEDS: fentaNYL 100 MCG/2 ML Ampul IV (08:28)
--- NOTE | 2025-01-29 08:51 | OP.PCM_ITS ---
Operative Report (Standard) Operative Information Date of Procedure: 01/29/25 Pre-Operative Diagnosis: Right inguinal hernia Post-Operative Diagnosis: Right inguinal hernia Surgery/Procedure Performed: Robotic assisted laparoscopic right inguinal hernia repair with mesh heater furnace: Yes Senior Quality Assurance Engineer: Kaleigh Chatterjee Tasks completed by assisted living associate: Opening & closing and Retracting Type of Anesthesia: General/Regional RN Documented Start/Stop Times: Operation Date: 01/29/25 07:30 Case Time Into Pre-Op 01/29/25 06:00 Out of Pre-Op 01/29/25 07:22 Anesthesia Start 01/29/25 07:29 Into Room 01/29/25 07:29 Procedure Start 01/29/25 07:50 Procedure Start Time: 07:50 Procedure Stop Time: 09:00 Select all DRAINS/GRAFTS/IMPLANTS that apply: Implanted device Implanted device details: ProGrip mesh in the right groin Estimated Blood Loss: 10 Specimen collected: No Description of surgery: Patient was brought back to the operating room and general anesthesia was induced. The abdomen was prepped and draped in usual sterile fashion. A midline incision was made superior to the umbilicus and deepened to the fascia which was grasped and elevated and a Veress needle was placed into the abdomen and a drop test was performed. The abdomen was insufflated to 15 mmHg and the Veress needle was removed. A port was placed. The camera is placed into the abdomen to inspect for injuries from entry and there were none. The patient was placed in Trendelenburg position. The patient had a large right indirect inguinal hernia that contained small bowel. Under direct visualization an 8 mm ports placed in the lateral right abdominal sidewall as well as the left abdominal sidewall. The robot was docked. Next using electrocautery scissors an incision was made in the right lower quadrant in the peritoneum. Dissection in the preperitoneal space was carried inferiorly until the hernia sac was encountered. As much of the hernia sac as possible was reduced but it was densely adherent in the scrotum. I elected to abandon the sac. The peritoneum was scored circumferentially and transected. Dissection of the posterior wall was taken down. Next a piece of ProGrip mesh was unfolded over the right inguinal region and completely covered the defect. The peritoneum was closed in a running fashion with 4 oh V-Loc suture. There was a large rent in the peritoneum where the hernia sac was and this was also closed with a running V- Loc suture. The mesh was completely covered by peritoneum at the end of the case. The abdomen was allowed to desufflate and the robot was undocked. The ports were removed. The incisions were injected with local anesthetic and closed with interrupted 4-0 Monocryl sutures. Steri-Strips and bandages were applied. Scrotum was checked at the end of case and is Nabel testicles. Patient brought to PACU in stable condition. Surgical Findings: Large difficult indirect right inguinal hernia Complications Complications: No Admit VTE Documentation VTE Mechan Device Prophylaxis: SCD's
--- NOTE | 2025-01-29 08:55 | DCINST_ITS ---
Discharge Instructions Procedure Hernia Diet Discharge Diet: Light diet - advance as tolerated Activity Discharge Activity: May Not Drive (for 2-3 days or while taking narcotic pain meds.) and May Shower (with the bandage in place 1-2 days after surgery.) Lifting Restrictions: 20 pounds for 4 weeks. May return to light duty at work in 2 weeks Additional Activity Instructions:: Climbing stairs is fine, walking is encouraged. Sitting in bed may be uncomfortable. Sitting up using your lateral muscles (sitting up sideways) is usually more comfortable. Do not drive, work heavy equipment of sign legal documents for 24 hours. If your hernia repair was an inguinal repair, you may have scrotal swelling, an ice pack and/or athletic support can provide more comfort. Pain medications may cause nausea, you should typically eat light foods as you take your pain medications. Pain medications may also cause constipation. If you have difficulty with this, discuss with your doctor. Alternate ibuprofen and Tylenol for pain control, oxycodone for breakthrough pain. Resume aspirin Wednesday Dressing / Incision Call your doctor if your incision/area has: Continuous Slow Oozing, Sudden Increased Bleeding, Increased Pain/ Swelling, Increased Redness and Foul Smelling Discharge Call your doctor if you observe: Fever of 101 or Higher Suture Line Care: Avoid Pulling/Pushing and Avoid Pinching/Bending Remove Dressing in: 2 days (Remove clear bandages in 2 days, remove Steri-Strips in 7 to 10 days.) Follow Up Care Please Follow Up With: Alberto Trevino MD When: Please call to schedule 2 week follow up appointment. [phone] Test Results: Test results from this visit will be discussed in further detail at your follow- up appointment, if applicable. Discharge Plan Admission Attending Provider: Alberto Trevino Primary Care Provider: Beny Franco Instructions Print Language: Bahamian Discharge Orders/Prescriptions Prescriptions: New oxycodone 5 mg Tablet 5 - 10 mg PO Q4H PRN PRN (Reason: Pain Score 4-10) 5 Days Qty: 10 0RF No Action aspirin 81 mg tablet 81 mg PO QDAY lisinopril-hydrochlorothiazide 20-12.5 mg tablet 1 tab PO QDAY omeprazole 20 mg capsule,delayed release(DR/EC) 20 mg PO QDAY multivitamin Tablet 1 tab PO DAILY Referrals / Follow Up: Beny Franco MD [Primary Care Provider] - Disposition Disposition (needs filled in before D/C Order can be placed): Home, Self Care
--- NOTE | 2025-01-29 09:07 | PCM.POST.ANE ---
Anesthesia: Postop Eval I Current Vital Signs Temperature: 96.8 F Pulse Rate: 65 Blood Pressure: 148/78 Respiratory Rate: 18 Pulse Ox: 94 Oxygen Delivery Method: Room Air Assessment Airway patent: Yes Spontaneous unlabored respirations: Yes Mental status: Awake nausea: No Vomiting: No Anesthesia Complication: No Fluid Hydration Crystalloid volume administer (ml): 800 Total IV fluid infused: 800 Progress Note Anesthesia document: Postop Eval 1 completed: Yes
== END 2025-01-29 11:55 | disposition home or self-care (01) ==
LOC: SDC 05:57 → AC 05:58
PROVIDERS: Anesthesiology; PCP Family Medicine; Referring Provider Surgery; Visit Provider Surgery
PROC: (CPT 49650; principal; 2025-01-29 07:10)
DX: K40.90 Unilateral inguinal hernia, without obstruction or gangrene, not specified as recurrent (principal); I10 Essential (primary) hypertension; K21.9 Gastro-esophageal reflux disease without esophagitis; G47.30 Sleep apnea, unspecified; Z79.82 Long term (current) use of aspirin; Z79.899 Other long term (current) drug therapy
CPT/HCPCS: 49650; S2900; 00750; 36415; 80048; 93005; C1781; J2405